=== PATIENT | female | born 1960 | race Caucasian/White ===

== ENCOUNTER 2021-08-12 14:40 | Emergency (ER) | payer MEDICARE, MEDICAID, SELFPAY ==
[2021-08-12 14:41] VITALS: BP 127/70; PULSE 107; RESP 20; TEMP 37.2; O2SAT 94; BMI 25.8
--- NOTE | 2021-08-12 15:08 | CT_ITS ---
PROCEDURE: CT ABDOMEN PELVIS WO CON CLINICAL INDICATION: pain Right flank pain COMPARISON: No exams were available for comparison TECHNIQUE: Axial images obtained with sagittal and coronal reformats. All CT scans at the facility use one or more dose reduction, viz: automated exposure control, ma/kV adjustment per patient size (including targeted exams where dose is matched to indication, i.e. head), or iterative reconstruction technique. FINDINGS: LOWER THORAX: There are atelectatic changes in the lung bases. Coronary artery calcifications are present. ABDOMEN & PELVIS: Heterogeneous density is present in the gallbladder likely representing multiple stones. Consider ultrasound for confirmation. No focal liver lesion is evident. The spleen, adrenal glands, and pancreas have an unremarkable appearance. No renal or ureteral calculi. No hydronephrosis. There is a small umbilical hernia containing fat. No evidence of appendicitis. No evidence of diverticulitis. Nondistended fluid-filled loops of small bowel are present in the lower abdomen and pelvic region. No evidence of intestinal obstruction. There is mild gaseous distention of the large bowel in the transverse colon region. There are mild amount of retained colonic feces in the ascending colon and hepatic flexure. On image number 73 series 5 there is an area of narrowing involving the transverse colon. This may merely represent an area of peristalsis. The mucosa however slightly thickened at this region. There are mild wedge compression changes of T9 and T12 and moderate wedge compression changes of L3. There are no previous exams for comparison to determine the age of these compression changes however they do not have a classic acute appearance. Degenerative changes are present in the hips. Prior gamma nail fixation of left hip with intramedullary arvind. IMPRESSION: 1. No renal or ureteral calculi. 2. Heterogeneous density in the gallbladder likely related to stones and sludge which may be confirmed with ultrasound. 3. Nonspecific bowel gas pattern with minimally prominent fluid-filled loops of small bowel in the lower abdomen and pelvis possibly due to enteritis or mild ileus. 4. Focal area of narrowing involving the mid aspect of the transverse colon possibly due to an area peristalsis. Nonemergent colonoscopy or barium enema suggested to exclude the possibility of an annular lesion. 5. Wedge compression changes of T9, T12, and L3 which may be chronic. 6. Other nonacute findings Dictated by: Philip Toro MD 08/12/2021 16:45 Philip Toro MD in [place] 08/12/2021 16:45
[2021-08-12 16:19] LABS: Basophils # 0.1 K/mm3 (0-0.2); Basophils % 0.6 % (0.1-2.0); Eosinophils % 0.4 % (0.1-12.0); Hematocrit 43.9 % (37.0-47.0); Hemoglobin 13.9 g/dL (12.2-16.2); Lymphocytes # 0.9 K/mm3 (0.7-4.5); Lymphocytes % 10.2 % (10-50); Mean Corpuscular HGB Conc 31.7 g/dL (31.8-35.4); Mean Corpuscular Hemoglobin 29.9 pg (27.0-31.2); Mean Corpuscular Volume 94.4 fl (81-99); Mean Platelet Volume 8.3 fl (7.4-10.4); Monocytes # 0.3 K/mm3 (0.1-1.0); Monocytes % 3.2 % (1.7-9.3); Neutrophils # 7.3 K/mm3 (1.8-7.8); Neutrophils % 85.5 % (37.0-80.0); Platelet Count 368 K/mm3 (142-424); Red Blood Count 4.65 M/mm3 (4.20-5.40); Red Cell Distribution Width 14.7 % (11.5-17.5); White Blood Count 8.5 K/mm3 (4.8-10.8)
[2021-08-12 16:24] LABS: Chloride 96 mmol/L (98-107); Potassium 4.3 mmoL/L (3.5-5.1); Sodium 135 mmol/L (136-145)
[2021-08-12 16:26] LABS: Alanine Aminotransferase 21 U/L (12-78); Aspartate Amino Transferase 26 U/L (14-36); Blood Urea Nitrogen 17 mg/dl (7-17); Creatinine Clearance Estimated 146 mL/min (50-200); Estimated Glomerular Filt Rate 126 ml/min (>60); GFR (African American) 152 ML/MIN (>60)
[2021-08-12 16:27] LABS: Albumin Level 4.2 g/dl (3.5-5.0); Albumin/Globulin Ratio 1.4 (1.1-1.8); Alkaline Phosphatase 163 U/L (38-126); Anion Gap 14.3 mEq/L (5-15); Bilirubin,Total 0.5 mg/dl (0.2-1.3); Calcium 9.2 mg/dl (8.4-10.2); Carbon Dioxide 29 mmol/L (22.0-30.0); Globulin 3.1 g/dL (1.3-3.2); Glucose 352 mg/dl (74-100); Lipase 53 U/L (23-300); Total Protein,Serum 7.3 g/dl (6.3-8.2)
[2021-08-12 16:35] LABS: MANUAL DIFFERENTIAL MANUAL DIFFERENTIAL (MANUAL DIFF)
--- NOTE | 2021-08-12 16:58 | HMH.EDGENADL ---
ED Disposition Clinical Impression: Pyelonephritis Disposition: Home, Self-Care Condition on Discharge: Fair Instructions: DI for Kidney Infection Additional Instructions: Take antibiotics for the full course, even if your symptoms resolve. Take Motrin and acetaminophen for pain. Prescriptions: Cefdinir [Omnicef 300mg Capsule] 300 mg PO BID #20 cap Transmission Status: Received by [facility] Referrals: Provider,Referral, [Primary Care Provider] - - Critical Care Critical Care Time: No Attestation: On 08/12/21, the high probability of a clinically significant, sudden or life threatening deterioration of the following system(s) required my full and direct attention, intervention and personal management. The time I documented below is in addition to time spent performing reported procedures but includes the following listed in this critical care notation. Medical Decision Making - Medical Records Medical records reviewed: Yes: I reviewed the patient's medical records. - Marquise Inquiry Pt receiving controlled substance: No Marquise was queried for this patient: No Vital Signs: 08/12/21 14:41 08/12/21 19:33 Temperature 98.9 F 98.2 F Temperature Source Oral Oral Pulse Rate 84 Pulse Rate [Left Radial] 107 H Respiratory Rate 20 20 Blood Pressure 142/80 H Blood Pressure [Right Arm] 127/70 Blood Pressure Mean [Right Arm] 89 Blood Pressure Source [Right Arm] Automatic Cuff Blood Pressure Position [Right Arm] Sitting 02 Sat by Pulse Oximetry 94 L Oxygen Delivery Method Room Air Room Air - Lab Data Lab Results 08/12/21 15:43: WBC 8.5, RBC 4.65, Hgb 13.9, Hct 43.9, MCV 94.4, MCH 29.9, MCHC 31.7 L, RDW 14.7, Plt Count 368, MPV 8.3, Neut % (Auto) 85.5 H, Lymph % (Auto) 10.2, [place] % (Auto) 3.2, Eos % (Auto) 0.4, Baso % (Auto) 0.6, Neut # (Auto) 7.3, Lymph # (Auto) 0.9, [place] # (Auto) 0.3, Eos # (Auto) 0.0, Baso # (Auto) 0.1, Total Counted 100, Neutrophils % (Manual) 84 H, Band Neutrophils % 1.0, Lymphocytes % (Manual) 12, Monocytes % (Manual) 3, Platelet Estimate Normal, Hypochromasia 2+ 08/12/21 15:43: Sodium 135 L, Potassium 4.3, Chloride 96 L, Carbon Dioxide 29, Anion Gap 14.3, BUN 17, Creatinine 0.50 L, Estimated Creat Clear 146, Estimated GFR 126, Est GFR ( Amer) 152, Glucose 352 H, Calcium 9.2, Total Bilirubin 0.5, AST 26, ALT 21, Alkaline Phosphatase 163 H, Total Protein 7.3, Albumin 4.2, Globulin 3.1, Albumin/Globulin Ratio 1.4, Lipase 53 08/12/21 18:03: Urine Color Yellow, Urine Appearance Cloudy, Urine pH 5.5, Ur Specific [place] 1.025, Urine Protein Negative, Urine Glucose (UA) 3+, Urine Ketones 1+, Urine Blood 1+, Urine Nitrate Positive, Urine Bilirubin Negative, Urine Urobilinogen 0.2, Ur Leukocyte Esterase 1+ A, Urine RBC 5-10, Urine WBC 20-50, Ur Squamous Epith Cells Occasional, Urine Bacteria 4+ Result diagrams: 08/12/21 15:43 08/12/21 15:43 Orders (Tests/Meds): ED MEDICATIONS Generic Name Dose Route Start Last Admin Trade Name Freq PRN Reason Stop Dose Admin Ceftriaxone Sodium 1 gm/ 50 mls @ 100 mls/hr 08/12/21 18:45 08/12/21 18:46 Sodium Chloride IV 08/26/21 18:44 100 mls/hr Q24H EMMANUEL Administration Discontinued Medications Generic Name Dose Route Start Last Admin Trade Name Freq PRN Reason Stop Dose Admin Acetaminophen 650 mg 08/12/21 18:33 08/12/21 18:41 Acetaminophen 325mg/10.15ml Udc PO 08/12/21 18:34 Not Given ONCE ONE Acetaminophen 650 mg 08/12/21 18:42 08/12/21 18:45 Acetaminophen 325mg Tab PO 08/12/21 18:43 650 mg ONCE ONE Administration Ketorolac Tromethamine 30 mg 08/12/21 18:15 08/12/21 18:15 Ketorolac 30mg/Ml Vial IV 08/12/21 18:16 30 mg ONCE ONE Administration Morphine Sulfate 4 mg 08/12/21 16:27 08/12/21 16:54 Morphine 4mg/Ml Syringe IV 08/12/21 16:28 4 mg ONCE ONE Administration Ondansetron HCl 4 mg 08/12/21 16:27 08/12/21 16:54 Ondansetron 4mg/2ml Vial IV 08/12/21 16:28 4 mg ONCE
[2021-08-12 17:09] LABS: Hypochromasia 2+; Lymphocytes % 12 % (10-50); Monocytes % 3 % (2-9); Neutrophils % 84 % (42-76); Total Cells Counted 100
[2021-08-12 17:10] LABS: Platelet Estimate Normal
[2021-08-12 18:09] LABS: Microscopic, Urine URINE MICROSCOPIC (MICROSCOPIC)
[2021-08-12 18:20] LABS: Appearance,Urine CLOUDY (Clear); Bilirubin,Urine Negative (Negative); Blood, Urine 1+ (Negative); Color,Urine YELLOW (Yellow); Glucose,Urine (UA) 3+ (Negative); Ketones,Urine 1+ (Negative); Leukocyte Esterase,Urine 1+ (Negative); Nitrate,Urine POSITIVE (Negative); PH,Urine 5.5 (5.0-8.5); Protein,Urine Negative (Negative); Specific Gravity, Urine 1.025 (1.005-1.030); Urobilinogen,Urine 0.2 EU/dl (0.2)
[2021-08-12 18:32] LABS: Bacteria,Urine 4+ /lpf; Squamous Epithelial Cell,Urine Occasional #/hpf (0-5); WBC,Urine 20-50 #/hpf (0-3)
--- NOTE | 2021-08-12 19:06 | PC.NURSE ---
Called [facility] for pt transport
--- NOTE | 2021-08-12 19:30 | PC.NURSE ---
Called [facility] for pt pick-up.
[2021-08-12 19:33] VITALS: BP 142/80; PULSE 84; RESP 20; TEMP 36.8; O2SAT 98
== END 2021-08-12 20:48 | disposition home or self-care (01) ==
PROVIDERS: Emergency Provider Emergency Medicine
DX: N10 Acute pyelonephritis (principal)
CPT/HCPCS: 74176; 80053; 81001; 83690; 85007; 85025; 87086; 87088; 96365; 96375; 99283; J2405

== ENCOUNTER → 2021-09-14 13:17 | Outpatient (CLI) | payer MEDICARE, MEDICAID, SELFPAY ==
--- NOTE | 2021-09-14 13:21 | XR_ITS ---
PROCEDURE: XR SHOULDER LT MIN 2V CLINICAL INDICATION: left shoulder pain COMPARISON: No exams were available for comparison FINDINGS: There is a healing left humeral neck fracture with callus formation medially and laterally. Fracture line is visible. There is mild impaction and medial displacement of the distal fracture fragment. There is generalized osteopenia. The humeral head is located. There is an old left 2nd and 3rd rib fracture anteriorly and there are atelectatic or fibrotic changes in the left midlung. IMPRESSION: Healing left humeral neck fracture with generalized osteopenia Dictated by: Philip Toro MD 09/14/2021 13:58 Philip Toro MD in [place] 09/14/2021 13:58
== END ==
PROVIDERS: PCP Emergency Medicine; Visit Provider Orthopaedic Surgery
DX: M25.512 Pain in left shoulder (principal)
CPT/HCPCS: 73030

== ENCOUNTER → 2021-11-02 12:28 | Outpatient (CLI) | payer MEDICARE, MEDICAID, SELFPAY ==
--- NOTE | 2021-11-02 12:37 | XR_ITS ---
FINAL REPORT CLINICAL HISTORY: LT proximal humerus fx Followup FINDINGS: LEFT SHOULDER 3 views of the left shoulder were obtained. Again noted is a displaced healing fracture of the surgical neck of the left humerus. There is approximately 1/4 shaft width medial displacement of the distal fracture fragment. There is bridging callus formation at the margins. Soft tissues are unremarkable. IMPRESSION: Healing fracture of the surgical neck of the left humerus. Reviewed, Interpreted and Dictated by Cb Crews MD Transcribed by Celina Mendez Authenticated by Cb Crews MD on 11/02/2021 02:42:[address] [facility]
== END ==
PROVIDERS: PCP Emergency Medicine; Visit Provider Orthopaedic Surgery
DX: S42.202A Unspecified fracture of upper end of left humerus, initial encounter for closed fracture (principal)
CPT/HCPCS: 73030

== ENCOUNTER → 2021-11-08 09:24 | Outpatient (CLI) | payer MEDICARE, MEDICAID, SELFPAY ==
--- NOTE | 2021-11-08 09:30 | XR_ITS ---
FINAL REPORT TECHNIQUE: Bone densitometry calculations of the lumbar spine and left hip were obtained. CLINICAL HISTORY: . patient has had a left hip replacement, unable to do forearm FINDINGS: Using L1-4, the bone mineral density of the spine is 1.004 g/cm2, corresponding to T-score of -0.4. Using the right hip, the bone mineral density of the femoral neck is 0.546 g/cm2, corresponding to a T-score of -3.2. NOTE: T-score: Standard deviation compared with peak bone mass of young adult mean. *Following the recommendations of the International Society of Bone Densitometry, classification of hip BMD is based on the lower of two T-scores; total hip or femoral neck. IMPRESSION: Osteoporosis: Lowest T-score is at or below -2.5. This patient's T-score meets the World Health Organization criteria for osteoporosis. This is likely falsely elevated secondary to hypertrophic changes. Reviewed, Interpreted and Dictated by Bobby Parsons III, MD Transcribed by Celina Mendez Authenticated by Bobby Parsons III, MD on 11/08/2021 12:06:30 PM [facility]
== END ==
PROVIDERS: PCP Emergency Medicine; Visit Provider Orthopaedic Surgery
DX: N95.9 Unspecified menopausal and perimenopausal disorder (principal); Z13.820 Encounter for screening for osteoporosis; Z78.0 Asymptomatic menopausal state
CPT/HCPCS: 77080

== ENCOUNTER → 2021-11-09 23:19 | Outpatient (CLI) | payer MEDICARE, MEDICAID, SELFPAY | PROVIDERS: Visit Provider Emergency Medicine | DX: Z20.822 Contact with and (suspected) exposure to COVID-19 (principal) | CPT/HCPCS: C9803; U0003; U0005 ==

== ENCOUNTER → 2021-11-10 21:23 | Outpatient (CLI) | payer MEDICARE, MEDICAID, SELFPAY | PROVIDERS: PCP Emergency Medicine; Visit Provider Emergency Medicine | DX: Z20.822 Contact with and (suspected) exposure to COVID-19 (principal) | CPT/HCPCS: C9803; U0003; U0005 ==

== ENCOUNTER 2021-12-22 07:20 | Inpatient (IN) | payer MEDICARE, MEDICAID, SELFPAY ==
[2021-12-22] VITALS (17 sets, daily range): BP systolic 101–146; BP diastolic 51–78; PULSE 78–109; RESP 16–20; TEMP 36.5–37.1; O2SAT 88–98; BMI 23.7; BMI 25.0
--- NOTE | 2021-12-22 07:34 | CT_ITS ---
FINAL REPORT CLINICAL HISTORY: FALL FINDINGS: Axial images of the head were obtained without contrast. Coronal reformatted images were also obtained. This study was performed with techniques to keep radiation doses as low as reasonably achievable (ALARA). Individualized dose reduction techniques using automated exposure control or adjustment of mA and/or kV according to the patient's size were employed. There is generalized age appropriate atrophy. There is no evidence of intracranial hemorrhage or mass. There is a large area of encephalomalacia in the right hemisphere which is likely a sequela of prior infarct. The ventricular size is within normal limits. There is no evidence of shift of the midline structures. No skull abnormality is seen on the bone window images. IMPRESSION: No acute intracranial abnormality. Reviewed, Interpreted and Dictated by Bobby Parsons III, MD Transcribed by Kayla Kemp Authenticated by Bobby Parsons III, MD on 12/22/2021 09:17:22 AM [facility]
--- NOTE | 2021-12-22 07:34 | CT_ITS ---
FINAL REPORT CLINICAL HISTORY: FALL FINDINGS: Axial CT images of the cervical spine were obtained without contrast. Sagittal and coronal reformatted images were also obtained. This study was performed with techniques to keep radiation doses as low as reasonably achievable (ALARA). Individualized dose reduction techniques using automated exposure control or adjustment of mA and/or kV according to the patient's size were employed. There is no evidence of fracture or dislocation. The bony alignment is normal. There are mild and moderate degenerative changes. There is disc osteophyte complex at C5-C6 and C6-C7. There is multilevel neural foraminal narrowing. There is no evidence of canal stenosis. No paraspinous soft tissue abnormality is seen. Limited images of the upper thorax are unremarkable. IMPRESSION: No fracture or acute bony abnormality identified. Reviewed, Interpreted and Dictated by Bobby Parsons III, MD Transcribed by Celina Mendez Authenticated by Bobby Parsons III, MD on 12/22/2021 09:22:26 AM [facility]
--- NOTE | 2021-12-22 07:35 | XR_ITS ---
FINAL REPORT CLINICAL HISTORY: FALL COMPARISON: CT dated August 12, 2021 FINDINGS: 2 views of the right hip with an AP pelvis were obtained. There is a comminuted intertrochanteric proximal right femur fracture. 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 There are mild degenerative changes of the right hip. There are postoperative changes of the left femur. There are no soft tissue abnormalities. IMPRESSION: Comminuted intertrochanteric proximal right femur fracture. Reviewed, Interpreted and Dictated by Bobby Parsons III, MD Transcribed by Clint Cordero Authenticated by Bobby Parsons III, MD on 12/22/2021 09:17:[address] [facility]
--- NOTE | 2021-12-22 07:36 | XR_ITS ---
FINAL REPORT CLINICAL HISTORY: FALL, right hand pain, pts hand is drawn up, unable to straighten fingers FINDINGS: RIGHT HAND: Multiple views of the right hand were obtained. There is a nondisplaced fracture of the proximal 5th metacarpal of uncertain age. There is moderate to severe degenerative changes of the wrist. There are subchondral cysts in the distal radius. There are multiple cysts or erosions in other carpal bones. IMPRESSION: Age-indeterminate nondisplaced fracture of the proximal 5th metacarpal. Recommend follow-up radiographs. Reviewed, Interpreted and Dictated by Bobby Parsons III, MD Transcribed by Clint Cordero Authenticated by Bobby Parsons III, MD on 12/22/2021 09:22:27 AM [facility]
--- NOTE | 2021-12-22 08:21 | XR_ITS ---
FINAL REPORT CLINICAL HISTORY: FALL FINDINGS: A single view of the chest was obtained. The heart size and pulmonary vascularity are within normal limits. The mediastinum is within normal limits. There is mild linear atelectasis or scarring in the lung bases. There is a calcified granuloma in the right lung base. There is no pneumothorax. There is degenerative change in the shoulders. IMPRESSION: Bibasilar atelectasis or scarring. Reviewed, Interpreted and Dictated by Bobby Parsons III, MD Transcribed by Clint Codrero Authenticated by Bobby Parsons III, MD on 12/22/2021 09:17:25 AM [facility]
--- NOTE | 2021-12-22 08:28 | PC.NURSE ---
rad called while pt still in xray room r/t pts xrays appearing to have fracture, notified dr. camilo SOLIS MD view xrays
--- NOTE | 2021-12-22 09:02 | ECG_ITS ---
APPROVED REPORT Exam: Resting ECG HR:83 bpm ECG Measurements Heart Rate 83 AXES OH 178 P 61 QRSd 75 QRS 60 QT 369 T 30 QTc 409 Conclusion SINUS RHYTHM NORMAL ECG UNCONFIRMED REPORT Electronically signed by : Keny Hartman MD 12/22/2021 18:02:31
--- NOTE | 2021-12-22 09:17 | HMH.EDGENADL ---
ED Disposition Clinical Impression: Closed right hip fracture Qualifiers: Encounter type: initial encounter Qualified Code(s): S72.001A - Fracture of unspecified part of neck of right femur, initial encounter for closed fracture Fracture, metacarpal Qualifiers: Encounter type: initial encounter Metacarpal bone: fifth Fracture type: closed Metacarpal location: base Fracture alignment: nondisplaced Laterality: right Qualified Code(s): S62.346A - Nondisplaced fracture of base of fifth metacarpal bone, right hand, initial encounter for closed fracture Disposition: Admitted As Inpatient Condition on Discharge: Fair Referrals: Adonis Kelley MD [Primary Care Provider] - - Critical Care Critical Care Time: No Attestation: On 12/22/21, the high probability of a clinically significant, sudden or life threatening deterioration of the following system(s) required my full and direct attention, intervention and personal management. The time I documented below is in addition to time spent performing reported procedures but includes the following listed in this critical care notation. Medical Decision Making - Marquise Inquiry Pt receiving controlled substance: Yes Marquise was queried for this patient: No Risks and benefits of using a controlled substance: were not discussed with pt by me Vital Signs: 12/22/21 07:21 12/22/21 09:00 12/22/21 09:30 Temperature 98.8 F Temperature Source Oral Pulse Rate 88 82 Pulse Rate [Radial] 100 H Respiratory Rate 20 18 18 Blood Pressure 129/77 109/60 L Blood Pressure [Right Arm] 105/74 L Blood Pressure Mean 108 76 Blood Pressure Mean [Right Arm] 84 Blood Pressure Position [Right Arm] Sitting 02 Sat by Pulse Oximetry 98 98 95 Oxygen Delivery Method Room Air Room Air Room Air - Lab Data Lab Results 12/22/21 09:08: WBC 15.1 H, RBC 4.04 L, Hgb 12.0 L, Hct 38.9, MCV 96.2, MCH 29.7, MCHC 30.9 L, RDW 14.4, Plt Count 299, MPV 8.2, Neut % (Auto) 86.1 H, Lymph % (Auto) 8.4 L, [place] % (Auto) 3.4, Eos % (Auto) 1.4, Baso % (Auto) 0.6, Neut # (Auto) 13.0 H, Lymph # (Auto) 1.3, [place] # (Auto) 0.5, Eos # (Auto) 0.2, Baso # (Auto) 0.1 12/22/21 09:08: Sodium 136, Potassium 4.3, Chloride 105, Carbon Dioxide 27, Anion Gap 8.3, BUN 30 H, Creatinine 0.60, Estimated Creat Clear 66, Estimated GFR 102, Est GFR ( Amer) 123, Glucose 114 H, Calcium 8.8, Total Bilirubin 0.5, AST 24, ALT 23, Alkaline Phosphatase 71, Total Protein 6.7, Albumin 3.9, Globulin 2.8, Albumin/Globulin Ratio 1.4 Result diagrams: 12/22/21 09:08 12/22/21 09:08 Orders (Tests/Meds): ED MEDICATIONS Discontinued Medications Generic Name Dose Route Start Last Admin Trade Name Deepakq PRN Reason Stop Dose Admin Morphine Sulfate 4 mg 12/22/21 09:16 12/22/21 09:17 Morphine 4mg/Ml Syringe IV 12/22/21 09:17 4 mg ONCE ONE Administration Ondansetron HCl 4 mg 12/22/21 09:17 12/22/21 09:17 Ondansetron 4mg/2ml Vial IV 12/22/21 09:18 4 mg ONCE ONE Administration ORDERS Category Date Time Status Type and Screen Stat BBK 12/22/21 09:00 Received Consult to Orthopedic Surgery [CONS] Stat Cons 12/22/21 09:31 Ordered Complete Blood Count Auto Diff Stat Lab 12/22/21 09:08 Results Rapid PCR Covid and Flu A/B Stat Lab 12/22/21 09:37 Received Urinalysis and Microscopic Stat Lab 12/22/21 08:28 Ordered - Radiology Data #1 Image(s): Chest, Hand, Hip Image Reviewed: Yes I reviewed the patient's radiology image, Yes I have reviewed radiologist's interpretation Procedure(s): XR hip RT 2-3V w/pelvis Accession Number(s): [id number] cc: Adonis Kelley MD; Bobby Parsons MD~ FINAL REPORT CLINICAL HISTORY: FALL COMPARISON: CT dated August 12, 2021 FINDINGS: 2 views of the right hip with an AP pelvis were obtained. There is a comminuted intertrochanteric proximal right femur fracture. 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 There are mild degenerative changes of the right hip. The
--- NOTE | 2021-12-22 09:22 | PC.NURSE ---
ED MD at
[2021-12-22 09:24] LABS: Basophils # 0.1 K/mm3 (0-0.2); Basophils % 0.6 % (0.1-2.0); Eosinophils # 0.2 K/mm3 (0.0-0.4); Eosinophils % 1.4 % (0.1-12.0); Hematocrit 38.9 % (37.0-47.0); Lymphocytes # 1.3 K/mm3 (0.7-4.5); Lymphocytes % 8.4 % (10-50); Mean Corpuscular HGB Conc 30.9 g/dL (31.8-35.4); Mean Corpuscular Hemoglobin 29.7 pg (27.0-31.2); Mean Corpuscular Volume 96.2 fl (81-99); Mean Platelet Volume 8.2 fl (7.4-10.4); Monocytes # 0.5 K/mm3 (0.1-1.0); Monocytes % 3.4 % (1.7-9.3); Neutrophils % 86.1 % (37.0-80.0); Platelet Count 299 K/mm3 (142-424); Red Blood Count 4.04 M/mm3 (4.20-5.40); Red Cell Distribution Width 14.4 % (11.5-17.5); White Blood Count 15.1 K/mm3 (4.8-10.8)
[2021-12-22 09:25] LABS: MANUAL DIFFERENTIAL MANUAL DIFFERENTIAL (MANUAL DIFF)
[2021-12-22 09:29] LABS: Alanine Aminotransferase 23 U/L (12-78); Albumin Level 3.9 g/dl (3.5-5.0); Albumin/Globulin Ratio 1.4 (1.1-1.8); Alkaline Phosphatase 71 U/L (38-126); Anion Gap 8.3 mEq/L (5-15); Aspartate Amino Transferase 24 U/L (14-36); Bilirubin,Total 0.5 mg/dl (0.2-1.3); Blood Urea Nitrogen 30 mg/dl (7-17); Calcium 8.8 mg/dl (8.4-10.2); Carbon Dioxide 27 mmol/L (22.0-30.0); Chloride 105 mmol/L (98-107); Creatinine Clearance Estimated 66 mL/min (50-200); Estimated Glomerular Filt Rate 102 ml/min (>60); GFR (African American) 123 ML/MIN (>60); Globulin 2.8 g/dL (1.3-3.2); Glucose 114 mg/dl (74-100); Potassium 4.3 mmoL/L (3.5-5.1); Sodium 136 mmol/L (136-145); Total Protein,Serum 6.7 g/dl (6.3-8.2)
--- NOTE | 2021-12-22 09:33 | PC.NURSE ---
dr kent paged
--- NOTE | 2021-12-22 09:38 | PC.NURSE ---
KATHY LIVE on phone with Dr. Smith
[2021-12-22 09:56] LABS: Influenza A, PCR Not Detected (NotDetected); Influenza B, PCR Not Detected (NotDetected)
[2021-12-22 10:00] LABS: Lymphocytes % 10 % (10-50); Monocytes % 2 % (2-9); Neutrophils % 88 % (42-76); Total Cells Counted 100
[2021-12-22 10:02] LABS: Macrocytosis 1+; Platelet Estimate Normal
--- NOTE | 2021-12-22 10:27 | HMH.HP ---
*Admission Date: 12/22/21 *Chief complaint: hip pain *History of present illness: 61-year-old white female who presented to the emergency department after a fall at home. The patient states that she was coming out of her bathroom and caught the toes of her left foot on the door and she jumped back and fell. The patient injured her right hip and her right hand during this fall. The patient reports having a prior fracture of the right hand as well as significant arthritis with deformity. The patient called EMS due to the pain in her right hip after the fall. She presented to the emergency department and does have a fracture of the right hip. She is scheduled to undergo surgical intervention tomorrow on her hip. She currently denies any chest pain or pressure. She denies any shortness of breath or edema. She denies any fevers, chills, nausea, vomiting, diarrhea, PND or orthopnea. She denies any history of coronary disease or NH. She does report a history of a stroke. She is a current tobacco user and smokes 3 to 4 packs/day.-per cardiology [facility] History I have reviewed the patient's past medical history: Yes Medical History: Reports:: Diabetes Mellitus Type 2 *Have you ever received a pneumonia vaccine?: No *Have you received a flu vaccine this season?: No Other Surgeries: Yes: Other - *Social History Smoking Status: Current every day smoker Alcohol Intake: never *Occupational Status:: disabled Housing: assisted living facility *Travel in the last 8 weeks: None Family Hx:: No significant family history Review of Systems - Review of Systems Review of systems:: pertinent systems reviewed and negative unless documented below - Constitutional Denies body ache(s) - Eyes Denies blurry vision - ENT Denies change in voice - *Cardiovascular Denies chest pain with activity - *Respiratory Denies chest congestion - *Gastrointestinal Denies bloating - *Genitourinary Denies urinary urgency - *Musculoskeletal Denies decreased muscle mass - Integumentary/Breasts Denies change in hair - *Neurologic Denies headache(s), Denies numbness, Denies weakness - Psychiatric Denies hearing things others do not hear - Endocrine Denies heat intolerance - Hematologic/Lymphatic Denies enlarged lymph nodes - Allergic/Immunologic Denies lip swelling Meds Home Medications Medication Instructions Recorded Confirmed Type acetaminophen 500 mg capsule 500 mg PO Q4HP PRN 09/14/21 12/22/21 History metformin 500 mg tablet 500 mg PO BIDWMEAL tab 09/14/21 12/22/21 History Cyclobenzaprine HCl 10 mg PO TIDP PRN 12/22/21 12/22/21 History [Cyclobenzaprine 10mg Tab*] Duloxetine HCl 40 mg PO DAILY 12/22/21 12/22/21 History Hydrocodone/Acetaminophen [Lortab 1 tab PO BID 12/22/21 12/22/21 History 10/325mg tablet] Insulin Glargine,Hum.rec.anlog 14 unit SQ HS 12/22/21 12/22/21 History [Lantus] Lactulose 30 ml PO DAILYP PRN 12/22/21 12/22/21 History Loperamide HCl [Loperamide] 2 mg PO Q6HP PRN 12/22/21 12/22/21 History Ondansetron [Zofran 4mg ODT] 4 mg PO TIDP PRN 12/22/21 12/22/21 History Promethazine HCl [Phenergan 25mg 25 mg PO Q8HP PRN 12/22/21 12/22/21 History tab] polyethylene glycoL 3350 [Miralax 17 gm PO DAILYP PRN 12/22/21 12/22/21 History 17gm Packet] predniSONE [Deltasone 10mg 10 mg PO DAILY 12/22/21 12/22/21 History tablet] Allergies Allergy/AdvReac Type Severity Reaction Status Date / Time codeine Allergy Unknown Verified 11/02/21 13:05 Sulfa (Sulfonamide Allergy Unknown Verified 11/02/21 13:05 Antibiotics) Exam Vital signs and Labs for Last 24 Hours: Temp Pulse Resp BP Pulse Ox 98.8 F 82 18 109/60 L 95 12/22/21 07:21 12/22/21 09:30 12/22/21 09:30 12/22/21 09:30 12/22/21 09:30 Laboratory Results - last 24 hr 12/22/21 09:00: Blood Type A Positive 12/22/21 09:08: WBC 15.1 H, RBC 4.04 L, Hgb 12.0 L, Hct 38.9, MCV 96.2, MCH 29.7, MCHC 30.9
[2021-12-22 10:42] LABS: Coronavirus 19, PCR Detected (NotDetected)
--- NOTE | 2021-12-22 11:14 | PC.NURSE ---
PT STATES SHE WAS + FOR COVID ABOUT A MONTH AGO
--- NOTE | 2021-12-22 11:54 | PC.NURSE ---
charge nurse from second floor called with room assignment for pt, states room is clean and ready
--- NOTE | 2021-12-22 12:11 | CA_ITS ---
APPROVED REPORT EXAM: Comprehensive 2D, Doppler, and color-flow Echocardiogram Washcoat Wiper: Darling Mora CRT Ht: 5 ft 8 in Wt: 156lbs BSA: 1.84 BP: 109/60 mmHg Indications: Diabetes, Hypertension/HDD, pre-op, R hip fx 2D Dimensions LVOT 1.97 cm (M/F) 1.5-2.5 LA Volume 24.70 mL LA Volume Index 13.40 mL/m2 (M/F) 16-34 M-Mode Dimensions RVDd 3.08 cm (0.9-2.6) LA Diam 3.25 cm (1.9-4.0) LVDd 4.72 cm (3.5-5.7) Ao Diam 4.05 cm (2.0-3.7) LVDs 2.07 cm (3.5-5.7) IVSd 0.86 cm (0.6-1.1) PWd 0.79 cm (0.6-1.1) EF (Teich) 86.60% FS 56.10% EDV (Teich) 103.40 mL TAPSE 1.94 (<1.7) ESV (Teich) 13.90 mL LV Diastology E Decel Time 210.00 (160-240 msec) E/A Ratio 0.93 LAT E' 6.10 (<10 cm/sec) LAT A' 9.10 cm/s E/LAT E' Ratio 9.41 (>14) Aortic Valve AO Peak GR. 6.90 mmHg Mitral Valve MV E Max Beni. 57.00 (40-130 cm/s) MV A Velocity 62.00 (40-130 cm/s) E/A Ratio 0.93 MV Decel. Time 210.00 (160-240 ms) MV PHT 62.00 ms Pulmonary Valve PV Peak Velocity 94.00 (50-150 cm/s) Tricuspid Valve TR P. Velocity 193.00 cm/s RAP Estimate 10.00 mmHg RVSP 25.00 mmHg Left Ventricle Left atrium is mildly enlarged, left ventricle is normal size, mild concentric left ventricular hypertrophy, visually estimated ejection fraction 55% with no regional wall motion abnormality, grade 1 diastolic dysfunction seen without tissue Doppler evidence of raise left atrial pressure. Right Ventricle Right atrium and right ventricle are normal size and contractility. Aortic Valve Aortic valve is minimally thickened and fibrosed, there is no aortic stenosis or aortic insufficiency. Mitral Valve Mitral valve grossly normal, there is trace mitral regurgitation. Tricuspid Valve Tricuspid grossly normal, there is trace tricuspid regurgitation, tricuspid regurgitation jet velocity is inadequate for calculation of the right ventricular systolic pressure. Pulmonic Valve Pulmonic valve is poorly visualized. Great Vessels Aortic root is normal size. Inferior vena cava is poorly visualized. Pericardium No significant pericardial effusion. Conclusion 1. Mildly enlarged left atrium, normal left ventricular size, mild concentric left ventricular hypertrophy, visually estimated ejection fraction 55% with no regional wall motion abnormality, grade 1 diastolic dysfunction seen without tissue Doppler evidence of raise left atrial pressure. 2. Trace mitral and tricuspid regurgitation. 3. No significant pericardial effusion. 4. Inferior vena cava is poorly visualized. Electronically signed by : Tip Valiente MD 12/22/2021 19:53:08
--- NOTE | 2021-12-22 12:24 | HMH.PHAVTE ---
[facility] Pharmacy VTE Monitoring - Patient Demographics Admission date: 12/22/21 Report Date: 12/22/21 Time: 12:24 Allergies/Adverse Reactions: Patient Allergies codeine Allergy (Unknown, Verified 11/02/21 13:05) Sulfa (Sulfonamide Antibiotics) Allergy (Unknown, Verified 11/02/21 13:05) Height: 1.73 m Weight: 70.76 kg Patient Problems: Current Active Problems Closed right hip fracture (Acute) Fracture, metacarpal (Acute) - VTE Risk Labs: VTE Related Lab Results Hgb 12.0 g/dL (12.2-16.2) L 12/22/21 09:08 Hct 38.9 % (37.0-47.0) 12/22/21 09:08 Plt Count 299 K/mm3 (142-424) 12/22/21 09:08 BUN 30 mg/dl (7-17) H 12/22/21 09:08 Creatinine 0.60 mg/dl (0.52-1.04) 12/22/21 09:08 Estimated Creat Clear 66 mL/min (50-200) 12/22/21 09:08 - Prophylaxis VTE Prophylaxis Ordered?: Yes Types of VTE Prophylaxis: TEDS Knee High Location of Applied Device: Bilateral Lower Extremeties
--- NOTE | 2021-12-22 12:29 | PC.NURSE ---
ATTEMPTED TO CALL REPORT NURSE WILL HAVE TO CALL BACK
--- NOTE | 2021-12-22 12:39 | HMH.CNCARD ---
History of Present Illness Consult date: 12/22/21 Requesting physician: Adonis Kelley Consult reason: pre-op evaluation Chief complaint: right hip pain History of present illness: This is a 61-year-old white female who presented to the emergency department after a fall at home. The patient states that she was coming out of her bathroom and caught the toes of her left foot on the door and she jumped back and fell. The patient injured her right hip and her right hand during this fall. The patient reports having a prior fracture of the right hand as well as significant arthritis with deformity. The patient called EMS due to the pain in her right hip after the fall. She presented to the emergency department and does have a fracture of the right hip. She is scheduled to undergo surgical intervention tomorrow on her hip. She currently denies any chest pain or pressure. She denies any shortness of breath or edema. She denies any fevers, chills, nausea, vomiting, diarrhea, PND or orthopnea. She denies any history of coronary disease or OK. She does report a history of a stroke. She is a current tobacco user and smokes 3 to 4 packs/day. [facility] History I have reviewed the patient's past medical history: Yes Medical History: Reports:: Diabetes Mellitus Type 2, Hyperlipidemia Denies:: Coronary Artery Disease, Hypertension *Have you ever received a pneumonia vaccine?: No *Have you received a flu vaccine this season?: No Other Surgeries: Yes: Other - *Social History Smoking Status: Current every day smoker Alcohol Intake: never *Occupational Status:: disabled Housing: assisted living facility *Travel in the last 8 weeks: None Family Hx:: No significant family history Meds Home Medications Medication Instructions Recorded Confirmed Type acetaminophen 500 mg capsule 500 mg PO Q4HP PRN 09/14/21 12/22/21 History metformin 500 mg tablet 500 mg PO BIDWMEAL tab 09/14/21 12/22/21 History Cyclobenzaprine HCl 10 mg PO TIDP PRN 12/22/21 12/22/21 History [Cyclobenzaprine 10mg Tab*] Duloxetine HCl 40 mg PO DAILY 12/22/21 12/22/21 History Hydrocodone/Acetaminophen [Lortab 1 tab PO BID 12/22/21 12/22/21 History 10/325mg tablet] Insulin Glargine,Hum.rec.anlog 14 unit SQ HS 12/22/21 12/22/21 History [Lantus] Lactulose 30 ml PO DAILYP PRN 12/22/21 12/22/21 History Loperamide HCl [Loperamide] 2 mg PO Q6HP PRN 12/22/21 12/22/21 History Ondansetron [Zofran 4mg ODT] 4 mg PO TIDP PRN 12/22/21 12/22/21 History Promethazine HCl [Phenergan 25mg 25 mg PO Q8HP PRN 12/22/21 12/22/21 History tab] polyethylene glycoL 3350 [Miralax 17 gm PO DAILYP PRN 12/22/21 12/22/21 History 17gm Packet] predniSONE [Deltasone 10mg 10 mg PO DAILY 12/22/21 12/22/21 History tablet] Allergies Allergy/AdvReac Type Severity Reaction Status Date / Time codeine Allergy Unknown Verified 11/02/21 13:05 Sulfa (Sulfonamide Allergy Unknown Verified 11/02/21 13:05 Antibiotics) Exam Vital signs and Labs for Last 24 Hours: Temp Pulse Resp BP Pulse Ox 98.8 F 93 H 20 115/66 98 12/22/21 07:21 12/22/21 12:00 12/22/21 12:00 12/22/21 12:00 12/22/21 12:00 Laboratory Results - last 24 hr 12/22/21 09:00: Blood Type A Positive 12/22/21 09:08: WBC 15.1 H, RBC 4.04 L, Hgb 12.0 L, Hct 38.9, MCV 96.2, MCH 29.7, MCHC 30.9 L, RDW 14.4, Plt Count 299, MPV 8.2, Neut % (Auto) 86.1 H, Lymph % (Auto) 8.4 L, [place] % (Auto) 3.4, Eos % (Auto) 1.4, Baso % (Auto) 0.6, Neut # (Auto) 13.0 H, Lymph # (Auto) 1.3, [place] # (Auto) 0.5, Eos # (Auto) 0.2, Baso # (Auto) 0.1, Total Counted 100, Neutrophils % (Manual) 88 H, Lymphocytes % (Manual) 10, Monocytes % (Manual) 2, Platelet Estimate Normal, Macrocytosis 1+ 12/22/21 09:08: Sodium 136, Potassium 4.3, Chloride 105, Carbon Dioxide 27, Anion Gap 8.3, BUN 30 H, Creatinine 0.60, Estimated Creat Clear 66, Estimated GFR 102, Est GFR ( Amer) 123, Glucose 114 H, Calcium 8.8, Total Bilirubin 0.5, AST 24,
--- NOTE | 2021-12-22 12:43 | PC.NURSE ---
REPORT CALLED TO FLOOR
--- NOTE | 2021-12-22 12:57 | PC.NURSE ---
Techs from 2nd floor down to get patient; taking her up by stretcher.
--- NOTE | 2021-12-22 13:49 | HMH.PHAINT ---
MEDICATION RECONCILIATION COMPLETED ON PATIENT USING MAR FROM [facility]. -LUZ MONTOYA, DWIGHTD
--- NOTE | 2021-12-22 14:19 | PC.NURSE ---
Called [facility]. Spoke to Clotilde requesting information about medication lists as well as ilanaid 19 testing paperwork.
[2021-12-22 17:02] LABS: POC Glucose,Bedside 118 (70-110)
[2021-12-22 19:07] LABS: Microscopic, Urine URINE MICROSCOPIC (MICROSCOPIC)
[2021-12-22 20:13] LABS: Appearance,Urine CLOUDY (Clear); Bilirubin,Urine Negative (Negative); Blood, Urine TRACE-I (Negative); Color,Urine YELLOW (Yellow); Glucose,Urine (UA) Negative (Negative); Ketones,Urine Negative (Negative); Leukocyte Esterase,Urine 1+ (Negative); Nitrate,Urine POSITIVE (Negative); Protein,Urine Negative (Negative); Specific Gravity, Urine >= 1.030 (1.005-1.030); Urobilinogen,Urine 0.2 EU/dl (0.2)
--- NOTE | 2021-12-22 20:50 | HMH.ORTHOCON ---
*Admission Date: 12/22/21 *Reason for consult:: Intertrochanteric fracture femur, right hip *History of present illness: Patient is a 61-year-old white female who is admitted to hospital from the emergency department for management of right intertrochanteric femur fracture. She is a resident of [facility]. The patient states that she fell after tripping on the door, coming out of the bathroom, at the [facility]. She says she injured her right hip, right knee and right hand during this fall. The patient reports having a prior fracture of the right hand as well as significant arthritis with deformity. She had immediate pain in her right hip, right knee and could not weight-bear or walk. She was brought to the ER by the EMS for evaluation confirmed the right femur intertrochanteric fracture. At present she does not report much pain in her right hand. She is only reporting of pain in her right hip and right knee. Patient denies any dizziness, headache, chest or neck pain. She says her pain is well controlled at rest but trying to move the right lower extremity causes hip and knee pain. She denies loss of consciousness, chest pain and shortness of breath. She had a similar injury to her left hip in 2012 and underwent a cephalo-medullary nailing b at [facility]. Her medical history includes CVA, hyperlipidemia and type 2 diabetes. She is a current tobacco user and smokes 3 to 4 packs/day. [facility] History I have reviewed the patient's past medical history: Yes Medical History: Reports:: Diabetes Mellitus Type 2, Hyperlipidemia Denies:: Coronary Artery Disease, Hypertension *Have you ever received a pneumonia vaccine?: No *Have you received a flu vaccine this season?: No Other Surgeries: Yes: Other - *Social History Smoking Status: Current every day smoker Tobacco Type: cigarettes # Packs/Day (cigarettes): 1 Alcohol Intake: never *Occupational Status:: disabled Housing: assisted living facility *Travel in the last 8 weeks: None Family Hx:: No significant family history Review of Systems - Review of Systems Review of systems:: pertinent systems reviewed and negative unless documented below - Constitutional Denies chills, Denies fever(s), Denies malaise - Eyes Denies change in vision - ENT Denies abnormal hearing, Denies bleeding gums, Denies difficulty swallowing - *Cardiovascular Denies chest pain, Denies shortness of breath - *Respiratory Denies chest congestion, Denies cough - *Gastrointestinal Denies abdominal pain, Denies change in bowel habits - *Musculoskeletal Reports abnormal walking, Reports joint pain, Reports deformity, Reports limited joint movement - *Neurologic Reports abnormal walking, Denies headache(s), Denies numbness, Denies weakness - Endocrine Denies cold intolerance, Denies heat intolerance - Hematologic/Lymphatic Denies easy bleeding, Denies easy bruising Meds Home Medications Medication Instructions Recorded Confirmed Type acetaminophen 500 mg capsule 500 mg PO Q4HP PRN 09/14/21 12/22/21 History metformin 500 mg tablet 500 mg PO BIDWMEAL tab 09/14/21 12/22/21 History Cyclobenzaprine HCl 10 mg PO TIDP PRN 12/22/21 12/22/21 History [Cyclobenzaprine 10mg Tab*] Duloxetine HCl 40 mg PO DAILY 12/22/21 12/22/21 History Hydrocodone/Acetaminophen [Lortab 1 tab PO BID 12/22/21 12/22/21 History 10/325mg tablet] Insulin Glargine,Hum.rec.anlog 14 unit SQ HS 12/22/21 12/22/21 History [Lantus] Lactulose 30 ml PO DAILYP PRN 12/22/21 12/22/21 History Loperamide HCl [Loperamide] 2 mg PO Q6HP PRN 12/22/21 12/22/21 History Ondansetron [Zofran 4mg ODT] 4 mg PO TIDP PRN 12/22/21 12/22/21 History Promethazine HCl [Phenergan 25mg 25 mg PO Q8HP PRN 12/22/21 12/22/21 History tab] polyethylene glycoL 3350 [Miralax 17 gm PO DAILYP PRN 12/22/21 12/22/21 History 17gm Packet] predniSONE [Deltasone 10mg 10 mg PO DAILY 12/22/21 12/22/21 History tablet]
[2021-12-22 21:12] LABS: Bacteria,Urine 3+ /lpf
--- NOTE | 2021-12-22 21:18 | XR_ITS ---
PROCEDURE INFORMATION: Exam: XR Right Knee Exam date and time: 12/22/2021 9:18 PM Age: 61 years old Clinical indication: Injury or trauma; Fall; Blunt trauma; Knee; Right; Additional info: Right knee pain after fall/injury TECHNIQUE: Imaging protocol: XR Right knee. Views: 3 views. COMPARISON: No relevant prior studies available. FINDINGS: Bones/joints: Severe tricompartmental degenerative changes, symmetric. Soft tissues: Normal. IMPRESSION: Severe tricompartmental degenerative changes, symmetric.
[2021-12-23] VITALS (21 sets, daily range): BP systolic 106–155; BP diastolic 56–79; PULSE 85–120; RESP 12–19; TEMP 36.3–37.2; O2SAT 91–96; BMI 24.9
[2021-12-23 06:08] LABS: POC Glucose,Bedside 178 (70-110)
[2021-12-23 07:05] LABS: Basophils # 0.1 K/mm3 (0-0.2); Basophils % 0.6 % (0.1-2.0); Eosinophils # 0.1 K/mm3 (0.0-0.4); Eosinophils % 0.6 % (0.1-12.0); Hematocrit 37.6 % (37.0-47.0); Hemoglobin 11.7 g/dL (12.2-16.2); Lymphocytes # 0.8 K/mm3 (0.7-4.5); Lymphocytes % 6.1 % (10-50); Mean Corpuscular HGB Conc 31.1 g/dL (31.8-35.4); Mean Corpuscular Hemoglobin 29.8 pg (27.0-31.2); Mean Corpuscular Volume 95.8 fl (81-99); Mean Platelet Volume 8.1 fl (7.4-10.4); Monocytes # 0.5 K/mm3 (0.1-1.0); Neutrophils # 11.2 K/mm3 (1.8-7.8); Neutrophils % 88.8 % (37.0-80.0); Platelet Count 241 K/mm3 (142-424); Red Blood Count 3.92 M/mm3 (4.20-5.40); Red Cell Distribution Width 14.5 % (11.5-17.5); White Blood Count 12.6 K/mm3 (4.8-10.8)
[2021-12-23 07:09] LABS: MANUAL DIFFERENTIAL MANUAL DIFFERENTIAL (MANUAL DIFF)
[2021-12-23 07:10] LABS: Alanine Aminotransferase 23 U/L (12-78); Albumin Level 3.8 g/dl (3.5-5.0); Albumin/Globulin Ratio 1.4 (1.1-1.8); Alkaline Phosphatase 79 U/L (38-126); Anion Gap 9.4 mEq/L (5-15); Aspartate Amino Transferase 33 U/L (14-36); Bilirubin,Total 1.3 mg/dl (0.2-1.3); Blood Urea Nitrogen 25 mg/dl (7-17); Calcium 8.4 mg/dl (8.4-10.2); Carbon Dioxide 27 mmol/L (22.0-30.0); Chloride 101 mmol/L (98-107); Creatinine Clearance Estimated 70 mL/min (50-200); Estimated Glomerular Filt Rate 102 ml/min (>60); GFR (African American) 123 ML/MIN (>60); Globulin 2.8 g/dL (1.3-3.2); Glucose 192 mg/dl (74-100); Potassium 4.4 mmoL/L (3.5-5.1); Sodium 133 mmol/L (136-145); Total Protein,Serum 6.6 g/dl (6.3-8.2)
--- NOTE | 2021-12-23 07:59 | SW/DCPLANNER ---
Addendum entered by Soo Thomas 12/28/21 09:22: I have informed Essie with [facility] this patient will return today: no further COVID testing is needed per Essie. Addendum entered by Soo Thomas 12/27/21 10:39: Updated patient information has been faxed to Essie nieves/ [facility]. Original Note: This patient currently resides at [facility]. I spoke with Essie from [place] patient is [facility] level of care: I will continue to follow up with Essie until patient is medically stable for discharge.
[2021-12-23 08:30] LABS: Eosinophils % 1 % (0-3); Lymphocytes % 5 % (10-50); Monocytes % 1 % (2-9); Neutrophils % 93 % (42-76); Total Cells Counted 100
[2021-12-23 08:32] LABS: Platelet Estimate Normal
--- NOTE | 2021-12-23 09:34 | HMH.ACPN2 ---
Internal Medicine - PN: Subj *Date: 12/23/21 *Time: 08:30 Interval history: pt laying in bed states no c/o Exam Vital signs and Labs for Last 24 Hours: Temp Pulse Resp BP Pulse Ox 98.9 F 120 H 19 146/71 H 94 L 12/23/21 08:00 12/23/21 08:00 12/23/21 08:00 12/23/21 08:00 12/23/21 08:00 Laboratory Results - last 24 hr 12/22/21 09:00: Blood Type A Positive, Antibody Screen Negative 12/22/21 09:08: Total Counted 100, Neutrophils % (Manual) 88 H, Lymphocytes % (Manual) 10, Monocytes % (Manual) 2, Platelet Estimate Normal, Macrocytosis 1+ 12/22/21 09:08: Sodium 136, Potassium 4.3, Chloride 105, Carbon Dioxide 27, Anion Gap 8.3, BUN 30 H, Creatinine 0.60, Estimated Creat Clear 66, Estimated GFR 102, Est GFR ( Amer) 123, Glucose 114 H, Calcium 8.8, Total Bilirubin 0.5, AST 24, ALT 23, Alkaline Phosphatase 71, Total Protein 6.7, Albumin 3.9, Globulin 2.8, Albumin/Globulin Ratio 1.4 12/22/21 09:37: SARS-CoV-2 (PCR) Detected A, Influenza A Untype (PCR) Not detected, Influenza Type B (PCR) Not detected 12/22/21 16:39: POC Glucose 118 H 12/22/21 19:04: Urine Color Yellow, Urine Appearance Cloudy, Urine pH 6.0, Ur Specific [place] >= 1.030, Urine Protein Negative, Urine Glucose (UA) Negative, Urine Ketones Negative, Urine Blood Trace-i, Urine Nitrate Positive, Urine Bilirubin Negative, Urine Urobilinogen 0.2, Ur Leukocyte Esterase 1+ A, Urine RBC 5-10, Urine WBC 10-20, Ur Squamous Epith Cells 3-5, Urine Bacteria 3+ 12/23/21 05:16: POC Glucose 178 H 12/23/21 06:05: WBC 12.6 H, RBC 3.92 L, Hgb 11.7 L, Hct 37.6, MCV 95.8, MCH 29.8, MCHC 31.1 L, RDW 14.5, Plt Count 241, MPV 8.1, Neut % (Auto) 88.8 H, Lymph % (Auto) 6.1 L, [place] % (Auto) 4.0, Eos % (Auto) 0.6, Baso % (Auto) 0.6, Neut # (Auto) 11.2 H, Lymph # (Auto) 0.8, [place] # (Auto) 0.5, Eos # (Auto) 0.1, Baso # (Auto) 0.1, Total Counted 100, Neutrophils % (Manual) 93 H, Lymphocytes % (Manual) 5 L, Monocytes % (Manual) 1 L, Eosinophils % (Manual) 1, Platelet Estimate Normal 12/23/21 06:05: Sodium 133 L, Potassium 4.4, Chloride 101, Carbon Dioxide 27, Anion Gap 9.4, BUN 25 H, Creatinine 0.60, Estimated Creat Clear 70, Estimated GFR 102, Est GFR ( Amer) 123, Glucose 192 H D, Calcium 8.4, Total Bilirubin 1.3, AST 33 D, ALT 23, Alkaline Phosphatase 79, Total Protein 6.6, Albumin 3.8, Globulin 2.8, Albumin/Globulin Ratio 1.4 I & O for Last 24 hours: Intake & Output 12/20/21 12/21/21 12/22/21 12/23/21 11:59 11:59 11:59 11:59 Intake Total 60 / 60 Output Total 600 / 600 Balance -540 / -540 Weight 156 lb 164 lb 9 oz - Constitutional no acute distress - *Routine HEENT Exam Head: Present: normocephalic Eye: Present: PERRL ENT: Present: mucous membranes moist - *Routine Neck Exam Present: supple. Absent: lymphadenopathy - *Routine Respiratory Exam Present: wheezes - *Routine Cardiovascular Exam Present: RRR - *Routine Abdominal Exam Present: soft, normoactive bowel sounds. Absent: tenderness - *Routine Extremities Exam Present: tenderness Comments: limited rom to rt leg - *Routine Skin Exam Present: warm. Absent: rash - *Routine Neurological Exam Present: alert, oriented X3 Assessment and Plan (1) Closed right hip fracture Status: Acute Qualifiers: Encounter type: initial encounter Qualified Code(s): S72.001A - Fracture of unspecified part of neck of right femur, initial encounter for closed fracture Category: Medical Code(s): S72.001A - Fracture of unspecified part of neck of right femur, initial encounter for closed fracture (2) Diabetes Status: Chronic Category: Medical Code(s): E11.9 - Type 2 diabetes mellitus without complications (3) History of CVA (cerebrovascular accident) Status: Chronic Category: Medical Code(s): Z86.73 - Personal history of transient ischemic attack (TIA), and cerebral infarction without residual deficits (4) Hyperlipidemia Status: Chronic Category: Medical Code(s): E78.5 -
[2021-12-23 10:20] LABS: ABG Base Excess 0.5 mmol/L (-2.4-2.3); ABG HCO3 25.1 mmhg (22.0-26.0); ABG Oxygen Saturation 87 % (90-100); ABG PCO2 40.3 mmhg (35.0-45.0); ABG PH 7.41 mmol/L (7.35-7.45); ABG PO2 50.8 mmhg (80-100); ABG TCO2 26.3 mmhg (23-27)
[2021-12-23 10:25] LABS: Oxygen room air %
[2021-12-23 10:26] LABS: Allen's Test acceptable; Source Right Radial
--- NOTE | 2021-12-23 10:27 | PC.NURSE ---
RESP CARE NOTE: Pt placed on 2 lpm nasal cannula after ABG performed and verified. Will continue to monitor patient.
--- NOTE | 2021-12-23 11:01 | CT_ITS ---
FINAL REPORT CLINICAL HISTORY: Hypoxia FINDINGS: Thin section axial CT images of the chest were obtained with contrast. 3D reformatted images were also obtained. This study was performed with techniques to keep radiation doses as low as reasonably achievable (ALARA). Individualized dose reduction techniques using automated exposure control or adjustment of mA and/or kV according to the patient's size were employed. The smaller lower lobe pulmonary arterial branches are suboptimally visualized but there is no evidence of pulmonary embolism. There is no evidence of thoracic aortic aneurysm or dissection. There is no evidence of mediastinal or hilar mass or adenopathy. There is no evidence of pulmonary mass or nodule. There is bilateral lower lobe atelectasis or pneumonia. Limited images of the upper abdomen demonstrate stones or sludge in the gallbladder. IMPRESSION: No evidence of pulmonary embolism. Bilateral lower lobe atelectasis or pneumonia. Stones or sludge in the gallbladder. Consider gallbladder ultrasound. Reviewed, Interpreted and Dictated by Bobby Parsons III, MD Transcribed by Shelly Aldridge Authenticated by Bobby Parsons III, MD on 12/23/2021 12:18:[address] [facility]
[2021-12-23 11:08] LABS: C-Reactive Protein 145.2 mg/L (0-4)
--- NOTE | 2021-12-23 13:03 | HMH.PULMCON ---
*Admission Date: 12/22/21 *Reason for consult:: Acute hypoxic respiratory failure, COVID-19 pneumonia *History of present illness: Ms. Pantoja is a 61-year-old female current smoker greater than [id number] smoking. Smokes 3 to 4 packs a day presented to the hospital with worsening respiratory distress and right femur intertrochanteric fracture and pulmonary was called for further management of her hypoxia and evaluate for surgical risk. . [facility] History Medical History: Reports:: Diabetes Mellitus Type 2, Hyperlipidemia Denies:: Coronary Artery Disease, Hypertension *Have you ever received a pneumonia vaccine?: No *Have you received a flu vaccine this season?: No Other Surgeries: Yes: Other - *Social History Smoking Status: Current every day smoker Tobacco Type: cigarettes # Packs/Day (cigarettes): 1 Alcohol Intake: never *Occupational Status:: disabled Housing: assisted living facility *Travel in the last 8 weeks: None Family Hx:: No significant family history ROS - Cons Reports fatigue - Eyes Reports blurry vision - ENT Denies nosebleed - Card Reports shortness of breath, Reports shortness of breath with activity - Resp Respiratory: Reports chest congestion, Reports cough, Reports wheezing - GI Gastrointestingal: Denies: abdominal pain - [place] Musculoskeletal: Reports back pain, Reports deformity, Reports limited range of motion - Psych Reports abnormal sleep pattern Meds Home Medications Medication Instructions Recorded Confirmed Type acetaminophen 500 mg capsule 500 mg PO Q4HP PRN 09/14/21 12/22/21 History metformin 500 mg tablet 500 mg PO BIDWMEAL tab 09/14/21 12/22/21 History Cyclobenzaprine HCl 10 mg PO TIDP PRN 12/22/21 12/22/21 History [Cyclobenzaprine 10mg Tab*] Duloxetine HCl 40 mg PO DAILY 12/22/21 12/22/21 History Hydrocodone/Acetaminophen [Lortab 1 tab PO BID 12/22/21 12/22/21 History 10/325mg tablet] Insulin Glargine,Hum.rec.anlog 14 unit SQ HS 12/22/21 12/22/21 History [Lantus] Lactulose 30 ml PO DAILYP PRN 12/22/21 12/22/21 History Loperamide HCl [Loperamide] 2 mg PO Q6HP PRN 12/22/21 12/22/21 History Ondansetron [Zofran 4mg ODT] 4 mg PO TIDP PRN 12/22/21 12/22/21 History Promethazine HCl [Phenergan 25mg 25 mg PO Q8HP PRN 12/22/21 12/22/21 History tab] polyethylene glycoL 3350 [Miralax 17 gm PO DAILYP PRN 12/22/21 12/22/21 History 17gm Packet] predniSONE [Deltasone 10mg 10 mg PO DAILY 12/22/21 12/22/21 History tablet] Allergies Allergy/AdvReac Type Severity Reaction Status Date / Time codeine Allergy Unknown Verified 11/02/21 13:05 Sulfa (Sulfonamide Allergy Unknown Verified 11/02/21 13:05 Antibiotics) Exam - Constitutional Constitutional:: Present: no acute distress - HENMT Exam HENMT: Present: normocephalic - Eye Exam Eyes:: Present: normal appearance both eyes and related structures - Neck Exam Neck:: Present: normal visual inspection - Respiratory Exam Respiratory:: Present: able to speak in complete sentences, no respiratory distress, wheezing - Cardiovascular Exam Cardiac:: Present: S1, S2 - GI Exam GI:: Present: soft, no hepatosplenomegaly - Skin Exam Skin: Present: warm, no rash - Neurological Exam Neurological: Present: alert, awake, normal cognition - Extremities Exam Extremities: Present: no cyanosis, no clubbing, no edema Internal Medicine - CN: Reslt - Labs CBC & Chem 7: 12/23/21 06:05 12/23/21 06:05 Labs: Short CBC 12/23/21 Range/Units 06:05 WBC 12.6 H (4.8-10.8) K/mm3 Hgb 11.7 L (12.2-16.2) g/dL Hct 37.6 (37.0-47.0) % Plt Count 241 (142-424) K/mm3 BMP 12/23/21 06:05 Sodium 133 L Potassium 4.4 Chloride 101 Carbon Dioxide 27 BUN 25 H Creatinine 0.60 Glucose 192 H D Calcium 8.4 Liver Function 12/23/21 Range/Units 06:05 Total Bilirubin 1.3 (0.2-1.3) mg/dl AST 33 D (14-36) U/L ALT 23 (12-78) U/L Alkaline Chris
--- NOTE | 2021-12-23 13:50 | HMH.ANESCL ---
[facility] Anesthesia Checklist - Patient Identification Patient Identification: Arm Band - Structural Data Admitted From: Inpatient Planned Operative Procedure/s: Gamma nail Consent for Planned Operative Procedure(s) Verified: Yes - NPO Status Verified Time NPO: 00:00 - Airway Assessment C-Spine Mobility Assessed: Yes TMJ Mobility Assessed: Yes Dentition: Poor Dentition - Neurological Assessment Level of Consciousness: Awake Hx Seizures: No Numbness or tingling in extremities: No - Anesthesia Plan Anesthesia Risk discussed: Yes Anesthesia Plan: Verified (Patient refuses spinal. Advised patient of increased risks of pulmonary complications, including unable to wean ioff ventilator. Dr. Santos states that he advised patient of risks as well. Patient wishes to continue with general anesthesia.After consulting with pulmonology, decision made to proceed) ASA Class: IV Anesthesia Type: General (LMA) [facility] History I have reviewed the patient's past medical history: Yes Medical History: Reports:: Diabetes Mellitus Type 2, Hyperlipidemia, Lung Disease (Current COVID. Pneumonia/atelectasis.), Transient Ischemic Attacks (TIA) Denies:: Coronary Artery Disease, Hypertension *Have you ever received a pneumonia vaccine?: No *Have you received a flu vaccine this season?: No Anesthesia experience/problems:: None Other Surgeries: Yes: Other - *Social History Smoking Status: Current every day smoker Tobacco Type: cigarettes # Packs/Day (cigarettes): 1 Alcohol Intake: never Substance Use Type: denies use *Occupational Status:: disabled Housing: assisted living facility *Travel in the last 8 weeks: None Family Hx:: No significant family history
--- NOTE | 2021-12-23 16:19 | XR_ITS ---
PROCEDURE INFORMATION: Exam: FL Unlisted Fluoroscopic Procedure Exam date and time: 12/23/2021 2:57 PM Age: 61 years old Clinical indication: Device placement; Other: Gamma nail TECHNIQUE: Imaging protocol: Unlisted fluoroscopic procedure (eg, diagnostic, interventional). The interpreting radiologist was not present during the examination. COMPARISON: CR XR HIP RT 2-3V W/PELVIS 12/22/2021 8:11 AM RADIATION DOSE METRICS: Fluoroscopy time (seconds): Not available Number of fluoro spot images: Not available FINDINGS/IMPRESSION: Multiple intra operative fluoroscopic images. There is a comminuted intertrochanteric fracture. There was placement of a intramedullary nail which is in adequate anatomic alignment. Please review postoperative report for complete details.
--- NOTE | 2021-12-23 16:51 | HMH.ANESI ---
[facility] Anesthesia Record Part I Intake, IV Amount: 600 Estimated blood loss (mL): 150 Urine output (mL): 0 Blood Pressure: 153/75 SaO2: 92 Pulse Rate: 111 Respiratory Rate: 16 Temperature: 97.5 F Patient is:: Drowsy, Oral/Nasal airway Stable to PACU at:: 16:42
--- NOTE | 2021-12-23 17:16 | PC.NURSE ---
Spoke with Mindi from PACU for report
--- NOTE | 2021-12-23 17:24 | HMH.OPNOTE ---
Date of procedure: 12/23/21 Pre-op Diagnosis:: Closed, comminuted, displaced intertrochanteric fracture, right hip Post-op Diagnosis:: Same Procedure performed:: Cephalomedullary nailing, right femur Surgeon:: Ilia Smith MD CLINICAL MARKETING MANAGER:: Nga Chester Anesthesia: LMA Estimated blood loss (mL): 150 Clinical Note:: Patient is a 61-year-old female who had a mechanical fall after tripping over the bathroom door, sustaining an injury to her right hip yesterday. Following evaluation in the emergency room where x-ray showed a comminuted, displaced, unstable intertrochanteric fracture of the right proximal femur, patient was admitted for further management. After evaluating the patient, I have discussed the diagnosis and management options in detail including nonsurgical and surgical, with the patient. After a detailed discussion with the patient, a decision was made to fix the fracture internally with a cephalo-medullary nail. I have discussed the procedure, risks and benefits, postoperative recovery and rehabilitation and the expected outcomes. The complications discussed include but are not limited to DVT, PE, infection, bleeding, injury to nerves and blood vessels, screw cut-out/implant failure, loss of fixation, nonunion, malunion/malrotation, osteonecrosis of the femoral head, femoral shaft fracture, painful hardware, heterotopic ossification, stiffness, weakness, incomplete relief of pain, incomplete return of function or motion and the likely need for further surgery in future, and anesthetic/medical complications including heart attack, stroke, transfusion reaction or . The patient wished to proceed with the surgical remediation. Patient previously had similar surgery on her left side several years ago. Consent form was reviewed and signed by me. The limb was appropriately marked and initialed by me. Following appropriate preoperative workup including preoperative clearances, patient is brought to the operating room for surgery. The surgery is indicated to stabilize the fracture, relieve pain and improve function. Patient understood the risks, agreed to proceed with surgery, signed the consent form and no guarantees or assurances were given or implied. Please refer to my consult note for full details. Operative findings:: Comminuted, displaced, unstable intertrochanteric fracture right proximal femur as noted on the preoperative imaging. The fracture was reduced and fixed in a stable fashion with an intermediate cephalomedullary nail. The tip-apex distance at the end of the procedure is 15 mm. Bone quality is good. Operative note:: Following appropriate preoperative workup and medical, pulmonary and cardiac clearance, patient is brought to the operating room. Patient is Covid positive; therefore, all the OR personnel followed appropriate current hospital protocols during the procedure. A general anesthesia was administered by the boiler control technician. Patient was then positioned supine on the fracture table and all the bony prominences were appropriately padded. The right foot was secured in the footplate and the footplate was attached to the fracture table. The left leg was placed out of the way in a leg monet. Under fluoroscopic guidance the fracture was was reduced and satisfactory reduction confirmed. The right hip and thigh were then prepped and draped in the usual sterile fashion. Administration of prophylactic antibiotics was confirmed with the boiler control technician (2 g of IV Ancef and vancomycin were administered). A preprocedure timeout was performed as per the hospital protocol. After marking the level of the greater trochanter on the skin under fluoroscopy, a skin incision was made proximal to the greater trochanter in line with the femoral shaft. The dissection was then carried through the subcutaneous tissue. The tensor fascia muscle was split in line with the fibers. This provided access to the tip of the greater trochanter. Under fluoroscopic guidance a
[2021-12-23 17:25] LABS: Microscopic,Cath URINE MICROSCOPIC (MICROSCOPIC)
--- NOTE | 2021-12-23 17:40 | SUR.PHASEI ---
1711- detailed report called to sivan cabral on medsur floor. 1713- pt left in stable condition with sivan asencio on medsur floor at this time. Ice pack in place, pt transported on 5L oxygen.
[2021-12-23 17:57] LABS: Appearance,Urine/Cath CLOUDY (Clear); Bilirubin,Cath Negative (Negative); Blood, Urine/Cath 2+ (Negative); Color,Urine/Cath YELLOW (Yellow); Glucose,Urine/Cath (UA) 2+ (Negative); Ketones,Urine/Cath 2+ (Negative); Leukocyte Esterase,Cath 2+ (Negative); Nitrate,Cath Negative (Negative); PH,Urine/Cath 5.5 (5.0-8.5); Protein,Urine/Cath TRACE (Negative); Urobilinogen,Cath 0.2 EU/dl (0.2)
[2021-12-23 18:11] LABS: Bacteria,Urine/Cath 4+ /lpf; WBC,Urine/Cath TNTC #/hpf (0-3)
[2021-12-24] VITALS (13 sets, daily range): BP systolic 104–167; BP diastolic 58–98; PULSE 90–113; RESP 16–20; TEMP 36.3–37.1; O2SAT 93–100; BMI 25.2
[2021-12-24 05:52] LABS: POC Glucose,Bedside 184 (70-110)
[2021-12-24 05:52] LABS: POC Glucose,Bedside 309 (70-110)
[2021-12-24 05:52] LABS: POC Glucose,Bedside 254 (70-110)
[2021-12-24 07:03] LABS: Basophils % 0.1 % (0.1-2.0); Hematocrit 31.5 % (37.0-47.0); Hemoglobin 10.2 g/dL (12.2-16.2); Lymphocytes # 0.4 K/mm3 (0.7-4.5); Lymphocytes % 3.3 % (10-50); Mean Corpuscular HGB Conc 32.4 g/dL (31.8-35.4); Mean Corpuscular Hemoglobin 30.1 pg (27.0-31.2); Mean Corpuscular Volume 92.9 fl (81-99); Mean Platelet Volume 8.7 fl (7.4-10.4); Monocytes # 0.3 K/mm3 (0.1-1.0); Monocytes % 2.7 % (1.7-9.3); Neutrophils # 11.3 K/mm3 (1.8-7.8); Neutrophils % 93.8 % (37.0-80.0); Platelet Count 166 K/mm3 (142-424); Red Blood Count 3.39 M/mm3 (4.20-5.40); Red Cell Distribution Width 14.3 % (11.5-17.5)
[2021-12-24 07:12] LABS: MANUAL DIFFERENTIAL MANUAL DIFFERENTIAL (MANUAL DIFF)
[2021-12-24 07:25] LABS: Alanine Aminotransferase 26 U/L (12-78); Albumin Level 3.1 g/dl (3.5-5.0); Albumin/Globulin Ratio 1.1 (1.1-1.8); Alkaline Phosphatase 77 U/L (38-126); Anion Gap 8.3 mEq/L (5-15); Aspartate Amino Transferase 29 U/L (14-36); Bilirubin,Total 0.7 mg/dl (0.2-1.3); Blood Urea Nitrogen 16 mg/dl (7-17); Calcium 7.9 mg/dl (8.4-10.2); Carbon Dioxide 27 mmol/L (22.0-30.0); Chloride 103 mmol/L (98-107); Creatinine Clearance Estimated 71 mL/min (50-200); Estimated Glomerular Filt Rate 102 ml/min (>60); GFR (African American) 123 ML/MIN (>60); Globulin 2.7 g/dL (1.3-3.2); Glucose 212 mg/dl (74-100); Potassium 4.3 mmoL/L (3.5-5.1); Sodium 134 mmol/L (136-145); Total Protein,Serum 5.8 g/dl (6.3-8.2)
[2021-12-24 07:44] LABS: Lymphocytes % 6 % (10-50); Monocytes % 3 % (2-9); Neutrophils % 91 % (42-76); Platelet Estimate Normal; RBC Morphology Normal; Total Cells Counted 100
--- NOTE | 2021-12-24 09:01 | HMH.OTEV ---
OT Inpatient Evaluation Rehab OT IP Evaluation Start: 12/23/21 17:27 Freq: ONCE Status: Complete Protocol: Document 12/24/21 08:[facility] (Rec: 12/24/21 09:01 [facility] [id number]) Rehab OT IP Assessment Subjective History Pt oriented x 3 on arrival. Pt agreeable to engage in therapy evaluation. Pt was admitted on 12/22/21 due to right hip fx after a fall. She lived at [facility] prior to being admitted in the hospital. Pt required a right Cephalomedullary nailing on 12/23/21. Pt reports prior to her fall she did require assistance with ADLS. She needed help with lower body dressing and bathing. She was able to feed herself independently after set up of food. Pt was dependent upon staff to complete all IADLs. 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 The following information was copied from history and physical report: 61-year-old white female who presented to the emergency department after a fall at home. The patient states that she was coming out of her bathroom and caught the toes of her left foot on the door and she jumped back and fell. The patient injured her right hip and her right hand during this fall. The patient reports having a prior fracture of the right hand as well as significant arthritis with deformity. The patient called EMS due to the pain in her right hip after the fall. She presented to the emergency department and does have a fracture of the right hip. She is scheduled to
--- NOTE | 2021-12-24 09:01 | HMH.ORTHPN ---
Subjective Date: 12/24/21 <RootFrancie navarrete - 12/24/21 09:02> Time: 08:45 <Francie Root - 12/24/21 09:02> Principal diagnosis: s/p cephalomedullary nailing, right femur <Francie Root - 12/24/21 09:09> Interval history: Patient is a 61-year-old female admitted to the acute inpatient service following an uneventful right cephalomedullary nailing yesterday 12/23/2021. Today she is postop day #1. This morning the patient is lying comfortably in bed. She reports pain in her right hip as to be expected at this stage but states that it is well controlled with pain medication. She states that she was able to get some rest last night. She reports that she is eating and drinking well and denies any episodes of nausea or vomiting. She denies chest pain, palpitations, fevers, chills, rigors, or distal tingling/numbness. She states that she was able to sit at the side of the bed this morning with the assistance of physical therapy, but has not ambulated yet. She denies any other symptoms or concerns at this time. <Francie Root - 12/24/21 09:09> PN: Obj Ex Vital signs: Temp Pulse Resp BP Pulse Ox 98.8 F 100 H 20 113/68 98 12/24/21 12:00 12/24/21 12:00 12/24/21 12:00 12/24/21 12:00 12/24/21 14:07 <Ilia Smith - 12/24/21 15:34> Temp Pulse Resp BP Pulse Ox 98.6 F 100 H 18 108/71 L 98 12/24/21 08:00 12/24/21 08:00 12/24/21 08:44 12/24/21 08:00 12/24/21 08:00 <Francie Root - 12/24/21 09:02> - Constitutional no acute distress, cooperative <Francie Root - 12/24/21 09:09> - Routine HEENT Exam Head: Present: normocephalic, atraumatic <Francie Root - 12/24/21 09:09> Eye: Present: EOMI, PERRL <Francie Root 12/24/21 09:09> ENT: Present: mucous membranes moist <Francie Root 12/24/21 09:09> - Routine Neck Exam Present: supple, trachea midline. Absent: full ROM, JVD, lymphadenopathy <Francie Root 12/24/21 09:09> - Routine Respiratory Exam Absent: accessory muscle use, respiratory distress <Francie Root 12/24/21 09:09> Comments: Symmetric chest movement, able to speak in complete sentences <Francie Root 12/24/21 09:09> - Routine Cardiovascular Exam Present: RRR. Absent: JVD <Francie Root 12/24/21 09:09> Comments: Normal peripheral pulses <Francie Root 12/24/21 09:09> - Routine Abdominal Exam Present: soft. Absent: tenderness <Francie Root 12/24/21 09:09> - Routine Extremities Exam Present: pulses intact. Absent: calf tenderness <Francie Root 12/24/21 09:09> Comments: Upon examination the lower extremities: The limb lengths are equal. Upon examination of the right hip, dressings present are clean, dry, and intact. No evidence of drainage or bleeding noted. Attempted movements of the right hip are somewhat painful as to be expected at this stage. Thigh and calf are soft nontender; Homans' sign is negative. No clinical evidence of DVT noted. Posterior tibial pulse 1+; capillary refill is brisk. Sensation to light touch is grossly intact throughout. Patient is actively mobilizing the knee, foot, ankle, and toes. <Francie Root 12/24/21 09:09> - Routine Skin Exam Present: intact, warm, normal turgor. Absent: cyanosis, erythema, jaundice <Francie Root 12/24/21 09:09> - Routine Neurological Exam Present: alert, oriented X3, CN II-XII intact, moving all extremities, normal tone, normal speech. Absent: sensory deficit, motor deficit, altered mental status <Root,Francie 12/24/21 09:09> - Routine Psychiatric Exam Present: normal affect, cooperative <RootFrancie - 12/24/21 09:09> - Urinary Catheter Management Brar Cath placed during this visit: no <Ilia Smith - 12/24/21 15:34> no <Francie Root - 12/24/21 13:58> Urethral indwelling: Yes <Francie Root - 12/24/21 09:09> Progress Note: A&P (1) Closed right hip fracture
--- NOTE | 2021-12-24 09:10 | HMH.PTEV ---
Physical Therapy Evaluation Rehab PT IP Evaluation Start: 12/23/21 17:27 Freq: ONCE Status: Active Protocol: Document 12/24/21 09:00 DENISSE (Rec: 12/24/21 09:09 DENISSE [id number]) Subjective/History History History Patient is a 61 year old female presenting to outpatient PT with reports of R post-surgical hip pain S/P R hip IM nail ORIF secondary to fall at SNF. Patient reports that she fell after tripping on the bathroom door at [place]. Patient previously used jonna-walker for ambulation. 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 Subjective Subjective My back and my hip hurts. Rehab PT IP Eval Objective Appearance Patient Behavior Cooperative Patient Orientation Person,Birthday Speech Pattern Clear,Appropriate Ambulation Patient Able to Ambulate No Balance Sitting Balance Leans or slides in chair Dynamic Sitting Balance Ability Good Transfers Bed Transfer Ability Total/Dependent (100%) ROM RLE PT ROM Status WFL MMT RLE PT MMT ABN Rehab PT IP prob,goals,plan Problems Date of Evaluation: 12/24/21 PT IP Problems Bed Mobility,Transfers,Gait, Balance,Self care,Safety Rehab Potential Rehab Potential Fair Equipment Needs Assistive Devices Rolling / Wheeled Walker Plan PT Intervention Plan Bed Mobility,Transfers,Gait, Balance,Self care,Safety, Therapeutic Exercise PT Plan Frequency BID Duration LOS Discharge Goals Bed Transfer Ability Moderate x 2 (50% assist) Sit to Stand Chair Transfer Ability Moderate x 2 (50% assist) Ambulation Assistive Device Rolling Walker Discharge Plan PT Discharge Plan Patient to discharge back to SNF once deemed medically stable by . G -code Required No PHYSICIAN CERTIFICATION: I certify the specified therapy services for Giovana Pantoja are required, authorized, and reviewed every 30 days.
--- NOTE | 2021-12-24 09:14 | HMH.PULMPN ---
Internal Medicine - PN: Subj *Date: 12/24/21 *Time: 10:27 Interval history: Status post hip surgery. Exam - Constitutional Constitutional:: Present: no acute distress, comfortable - HENMT Exam HENMT: Present: normocephalic, atraumatic - Eye Exam Eyes:: Present: normal appearance both eyes and related structures - Neck Exam Neck:: Present: normal visual inspection - Respiratory Exam Respiratory:: Present: able to speak in complete sentences, no respiratory distress, normal respiratory effort. Absent: wheezing - Cardiovascular Exam Cardiac:: Present: S1, S2 - GI Exam GI:: Present: soft - Skin Exam Skin: Present: warm, no rash - Neurological Exam Neurological: Present: alert, awake - Extremities Exam Extremities: Present: no cyanosis, no clubbing, no edema Assessment and Plan (1) Closed right hip fracture Status: Acute Qualifiers: Encounter type: initial encounter Qualified Code(s): S72.001A - Fracture of unspecified part of neck of right femur, initial encounter for closed fracture Category: Medical Code(s): S72.001A - Fracture of unspecified part of neck of right femur, initial encounter for closed fracture (2) Diabetes Status: Chronic Category: Medical Code(s): E11.9 - Type 2 diabetes mellitus without complications (3) History of CVA (cerebrovascular accident) Status: Chronic Category: Medical Code(s): Z86.73 - Personal history of transient ischemic attack (TIA), and cerebral infarction without residual deficits (4) Hyperlipidemia Status: Chronic Category: Medical Code(s): E78.5 - Hyperlipidemia, unspecified (5) Injury of knee, right Status: Acute Category: Medical Code(s): S89.91XA - Unspecified injury of right lower leg, initial encounter - Assessment and plan all Dx Assessment and Plan for all problems:: #Acute hypoxic respiratory failure: #Community-acquired pneumonia: #COVID-19 pneumonia: 61-year-old female current smoker greater than 50-bxrh-gvch smoking. Not using any inhalers at baseline. Not on any oxygen but admits baseline respiratory symptoms worsen for the last week. She admits to being diagnosed with COVID-19 pneumonia a month ago however she also admits negative test prior to her current positive test on this admission. I do not have access to the prior testing at this point of time. We will initiate treatment for active COVID-19 pneumonia pending record review Auscultation revealed bilateral diffuse wheezing with lower lobe rhonchi. Patient on examination today saturating 86% on room air. Blood gas on room air showed hypoxia with a PO2 of 50.8. ERP significant elevated 145.2. CTA performed did not show any groundglass opacities, showed bilateral lower lobe atelectasis and airspace disease, right greater than left. No Evidence of pulmonary embolism noted. Interval update: Status post hip surgery. Urine culture positive for E. coli sensitive to ceftriaxone and Bactrim, resistant to levofloxacin. continue to receive remdesivir. Respiratory significantly improved, on room air saturating 98% and above. Auscultation showed improving wheezing. Patient is not ready to quit smoking at this point of time. Patient prefers inhaler than nebulizer treatments. Plan: -Change inhalers to Trelegy along with albuterol every 6 hours as needed. -Continue oxygen supplementation to maintain O2 saturation goal of 90% and above -Sputum cultures -Continue ceftriaxone and azithromycin for possible community-acquired pneumonia, can be weaned to Bactrim upon discharge -COntinue remdesivir x 5 days / utill discharge for COVID-19 pneumonia. We will closely monitor. Obtain medical records regarding patient's prior COVID-19 testing #Thank for involving pulmonary in this patient care. Follow the patient in pulmonary clinic in 4 to 6 weeks with a full PFT testing.
--- NOTE | 2021-12-24 10:05 | PC.NURSE ---
IS given to patient. Instructed patient on use, benefit of using IS and how often she should ideally be using device. Pt verbalized understanding and demonstrated proper use. IS @ best this AM = 1250. Ice pack applied to pt's right hip. Dressing C/D/I. Pt reported 10/10 pain in right leg , prn lortab admin per DEC w/ favorable results voiced.
--- NOTE | 2021-12-24 10:35 | P.PN_ITS ---
[facility] Anesthesia Record Part II Discharge Time: 17:12 Destination: Second Floor PACU nurse assessment reviewed?: Yes Patient Condition:: Good Anesthesia Complications:: None Swallowing reflex intact?: Yes Cyanosis?: No Blood Pressure: 155/70 Pulse Rate: 100 Temperature: 97.4 F Mental Status: Alert & Oriented Pain level:: 0 Nausea and/or vomitting:: None Intake, IV Amount: 0
[2021-12-24 11:53] LABS: POC Glucose,Bedside 179 (70-110)
[2021-12-24 16:37] LABS: POC Glucose,Bedside 223 (70-110)
--- NOTE | 2021-12-24 17:06 | HMH.ACPN2 ---
Internal Medicine - PN: Subj *Date: 12/24/21 *Time: 09:00 Interval history: pt laying in bed. Exam Vital signs and Labs for Last 24 Hours: Temp Pulse Resp BP Pulse Ox 98.8 F 100 H 16 113/68 98 12/24/21 12:00 12/24/21 12:00 12/24/21 16:10 12/24/21 12:00 12/24/21 14:07 Laboratory Results - last 24 hr 12/23/21 11:57: POC Glucose 184 H 12/23/21 14:45: Urine Color Yellow, Urine Appearance Cloudy, Urine pH 5.5, Ur Specific Lovely 1.020, Urine Protein Trace, Urine Glucose (UA) 2+, Urine Ketones 2+, Urine Blood 2+, Urine Nitrate Negative, Urine Bilirubin Negative, Urine Urobilinogen 0.2, Ur Leukocyte Esterase 2+ A, Urine RBC 10-20, Urine WBC Tntc A, Ur Squamous Epith Cells None, Urine Bacteria 4+ A 12/23/21 17:34: POC Glucose 254 H 12/23/21 20:02: POC Glucose 309 H* 12/24/21 06:25: WBC 12.0 H, RBC 3.39 L, Hgb 10.2 L, Hct 31.5 L, MCV 92.9, MCH 30.1, MCHC 32.4, RDW 14.3, Plt Count 166 D, MPV 8.7, Neut % (Auto) 93.8 H, Lymph % (Auto) 3.3 L, Moca % (Auto) 2.7, Eos % (Auto) 0.0 L, Baso % (Auto) 0.1, Neut # (Auto) 11.3 H, Lymph # (Auto) 0.4 L, Moca # (Auto) 0.3, Eos # (Auto) 0.0, Baso # (Auto) 0.0, Total Counted 100, Neutrophils % (Manual) 91 H, Lymphocytes % (Manual) 6 L, Monocytes % (Manual) 3, Platelet Estimate Normal, RBC Morphology Normal 12/24/21 06:25: Sodium 134 L, Potassium 4.3, Chloride 103, Carbon Dioxide 27, Anion Gap 8.3, BUN 16 D, Creatinine 0.60, Estimated Creat Clear 71, Estimated GFR 102, Est GFR ( Amer) 123, Glucose 212 H, Calcium 7.9 L, Total Bilirubin 0.7, AST 29, ALT 26, Alkaline Phosphatase 77, Total Protein 5.8 L, Albumin 3.1 L D, Globulin 2.7, Albumin/Globulin Ratio 1.1 12/24/21 11:46: POC Glucose 179 H 12/24/21 16:19: POC Glucose 223 H I & O for Last 24 hours: Intake & Output 12/22/21 12/23/21 12/24/21 12/25/21 11:59 11:59 11:59 11:59 Intake Total 60 / 60 975 / 975 1114 / 1114 Output Total 600 / 600 1500 / 1500 1100 / 1100 Balance -540 / -540 -525 / -525 Weight 156 lb 164 lb 9 oz 166 lb 12.8 oz Microbiology Reports for the Last 24 Hours: Microbiology 12/23/21 14:45 Urine,Catheterized Urine Culture - Preliminary 12/22/21 19:04 Urine,Clean Catch Urine Culture - Final Escherichia coli - Constitutional no acute distress - *Routine HEENT Exam Head: Present: normocephalic Eye: Present: PERRL ENT: Present: mucous membranes moist - *Routine Neck Exam Present: supple. Absent: lymphadenopathy - *Routine Respiratory Exam Present: CTA bilaterally - *Routine Cardiovascular Exam Present: RRR - *Routine Abdominal Exam Present: soft, normoactive bowel sounds. Absent: tenderness - *Routine Extremities Exam Absent: cyanosis, clubbing, edema Comments: left side flacidd old cva - *Routine Skin Exam Present: warm. Absent: rash Comments: dressing c/d/i - *Routine Neurological Exam Present: alert, oriented X3 Assessment and Plan (1) Closed right hip fracture Status: Acute Qualifiers: Encounter type: initial encounter Qualified Code(s): S72.001A - Fracture of unspecified part of neck of right femur, initial encounter for closed fracture Category: Medical Code(s): S72.001A - Fracture of unspecified part of neck of right femur, initial encounter for closed fracture (2) Diabetes Status: Chronic Category: Medical Code(s): E11.9 - Type 2 diabetes mellitus without complications (3) History of CVA (cerebrovascular accident) Status: Chronic Category: Medical Code(s): Z86.73 - Personal history of transient ischemic attack (TIA), and cerebral infarction without residual deficits (4) Hyperlipidemia Status: Chronic Category: Medical Code(s): E78.5 - Hyperlipidemia, unspecified (5) Injury of knee, right Status: Acute Category: Medical Code(s): S89.91XA - Unspecified injury of right lower leg, initial encounter (6) COVID Status: Acute Category: Medical Code(s): U07.1 - COVID-
--- NOTE | 2021-12-24 17:10 | PC.NURSE ---
Pain meds admin per DEC twice this shift w/ adequate relief noted by patient. She did work w/ PT twice this shift, tolerated well. Dressing to (R) hip remains c/d/i. Ice pack in place. Pt has been weaned to room air, sat maintaining > 90% per MD orders. No needs voiced this shift. Call turpin w/in reach. Bed alarm in place.
[2021-12-24 22:12] LABS: POC Glucose,Bedside 166 (70-110)
[2021-12-25] VITALS: PULSE 100; PULSE 90
[2021-12-25 04:00] VITALS: BP 117/68; PULSE 106; PULSE 90; RESP 20; TEMP 37; O2SAT 97
[2021-12-25 04:42] VITALS: BMI 25.3
[2021-12-25 06:53] LABS: MANUAL DIFFERENTIAL MANUAL DIFFERENTIAL (MANUAL DIFF)
[2021-12-25 07:26] LABS: Eosinophils # 0.2 K/mm3 (0.0-0.4); Mean Corpuscular Hemoglobin 29.7 pg (27.0-31.2); Monocytes # 0.2 K/mm3 (0.1-1.0); Red Cell Distribution Width 14.8 % (11.5-17.5)
[2021-12-25 08:00] VITALS: BP 139/66; PULSE 100; PULSE 104; RESP 15; TEMP 37.2; O2SAT 96
[2021-12-25 08:18] LABS: Alanine Aminotransferase 15 U/L (12-78); Albumin Level 2.4 g/dl (3.5-5.0); Albumin/Globulin Ratio 1.1 (1.1-1.8); Alkaline Phosphatase 54 U/L (38-126); Anion Gap 6.4 mEq/L (5-15); Aspartate Amino Transferase 19 U/L (14-36); Bilirubin,Total 0.5 mg/dl (0.2-1.3); Blood Urea Nitrogen 16 mg/dl (7-17); Calcium 6.6 mg/dl (8.4-10.2); Carbon Dioxide 23 mmol/L (22.0-30.0); Chloride 101 mmol/L (98-107); Creatinine Clearance Estimated 71 mL/min (50-200); Estimated Glomerular Filt Rate 162 ml/min (>60); GFR (African American) 196 ML/MIN (>60); Globulin 2.1 g/dL (1.3-3.2); Glucose 113 mg/dl (74-100); Potassium 3.4 mmoL/L (3.5-5.1); Sodium 127 mmol/L (136-145); Total Protein,Serum 4.5 g/dl (6.3-8.2)
--- NOTE | 2021-12-25 08:50 | HMH.ACPN2 ---
Internal Medicine - PN: Subj *Date: 12/25/21 *Time: 08:50 Interval history: doing ok - no specific c/o Exam Vital signs and Labs for Last 24 Hours: Temp Pulse Resp BP Pulse Ox 98.6 F 100 H 20 117/68 97 12/25/21 04:00 12/25/21 08:00 12/25/21 04:00 12/25/21 04:00 12/25/21 04:00 Laboratory Results - last 24 hr 12/24/21 11:46: POC Glucose 179 H 12/24/21 16:19: POC Glucose 223 H 12/24/21 21:59: POC Glucose 166 H I & O for Last 24 hours: Intake & Output 12/22/21 12/23/21 12/24/21 12/25/21 11:59 11:59 11:59 11:59 Intake Total 60 / 60 975 / 975 1714 / 1714 Output Total 600 / 600 1500 / 1500 1102 / 1102 Balance -540 / -540 -525 / -525 612 / 612 Weight 156 lb 164 lb 9 oz 166 lb 12.8 oz 167 lb 3 oz Microbiology Reports for the Last 24 Hours: Microbiology 12/23/21 14:45 Urine,Catheterized Urine Culture - Preliminary 12/22/21 19:04 Urine,Clean Catch Urine Culture - Final Escherichia coli - Constitutional no acute distress - *Routine HEENT Exam Head: Present: normocephalic Eye: Present: EOMI, PERRL ENT: Present: mucous membranes dry - *Routine Neck Exam Absent: JVD - *Routine Respiratory Exam Present: CTA bilaterally - *Routine Cardiovascular Exam Present: RRR, murmur - *Routine Abdominal Exam Present: soft - *Routine Extremities Exam Absent: calf tenderness - *Routine Skin Exam Present: intact - *Routine Neurological Exam Present: alert, CN II-XII intact - Routine Psychiatric Exam Present: cooperative Assessment and Plan (1) Closed right hip fracture Status: Acute Qualifiers: Encounter type: initial encounter Qualified Code(s): S72.001A - Fracture of unspecified part of neck of right femur, initial encounter for closed fracture Category: Medical Code(s): S72.001A - Fracture of unspecified part of neck of right femur, initial encounter for closed fracture (2) Diabetes Status: Chronic Category: Medical Code(s): E11.9 - Type 2 diabetes mellitus without complications (3) History of CVA (cerebrovascular accident) Status: Chronic Category: Medical Code(s): Z86.73 - Personal history of transient ischemic attack (TIA), and cerebral infarction without residual deficits (4) Hyperlipidemia Status: Chronic Category: Medical Code(s): E78.5 - Hyperlipidemia, unspecified (5) Injury of knee, right Status: Acute Category: Medical Code(s): S89.91XA - Unspecified injury of right lower leg, initial encounter (6) COVID Status: Acute Category: Medical Code(s): U07.1 - COVID-19 (7) E. coli UTI (urinary tract infection) Status: Acute Category: Medical Code(s): N39.0 - Urinary tract infection, site not specified; B96.20 - Unspecified Escherichia coli [E. coli] as the cause of diseases classified elsewhere
[2021-12-25 09:20] LABS: Eosinophils % 4 % (0-3); Lymphocytes % 7 % (10-50); Monocytes % 1 % (2-9); Neutrophils % 88 % (42-76); Total Cells Counted 100
[2021-12-25 09:25] LABS: Basophils % 0.8 % (0.1-2.0); Eosinophils % 3.2 % (0.1-12.0); Hematocrit 25.2 % (37.0-47.0); Lymphocytes # 0.6 K/mm3 (0.7-4.5); Lymphocytes % 11.5 % (10-50); Mean Corpuscular Volume 92.7 fl (81-99); Mean Platelet Volume 9.2 fl (7.4-10.4); Monocytes % 4.1 % (1.7-9.3); Neutrophils # 4.2 K/mm3 (1.8-7.8); Neutrophils % 80.4 % (37.0-80.0); Platelet Count 149 K/mm3 (142-424); Red Blood Count 2.72 M/mm3 (4.20-5.40); White Blood Count 5.2 K/mm3 (4.8-10.8)
[2021-12-25 09:27] LABS: Hemoglobin 8.1 g/dL (12.2-16.2)
[2021-12-25 09:30] LABS: Platelet Estimate Normal; RBC Morphology Normal
[2021-12-25 12:00] VITALS: BP 168/96; PULSE 86; PULSE 96; RESP 16; TEMP 37.2; O2SAT 97
[2021-12-25 12:06] LABS: POC Glucose,Bedside 172 (70-110)
[2021-12-25 16:00] VITALS: BP 126/67; PULSE 90; PULSE 91; RESP 16; TEMP 36.7; O2SAT 98
[2021-12-25 20:00] VITALS: BP 144/90; PULSE 90; PULSE 92; RESP 16; TEMP 37; O2SAT 97
[2021-12-26] VITALS (7 sets, daily range): BP systolic 109–168; BP diastolic 69–89; PULSE 90–100; RESP 16; TEMP 36.8–37.1; O2SAT 94–97; BMI 25.4
[2021-12-26 07:11] LABS: MANUAL DIFFERENTIAL MANUAL DIFFERENTIAL (MANUAL DIFF)
[2021-12-26 07:33] LABS: Basophils % 0.6 % (0.1-2.0); Eosinophils # 0.3 K/mm3 (0.0-0.4); Eosinophils % 6.2 % (0.1-12.0); Hematocrit 30.1 % (37.0-47.0); Hemoglobin 9.5 g/dL (12.2-16.2); Lymphocytes # 0.9 K/mm3 (0.7-4.5); Lymphocytes % 16.3 % (10-50); Mean Corpuscular HGB Conc 31.6 g/dL (31.8-35.4); Mean Corpuscular Hemoglobin 29.7 pg (27.0-31.2); Mean Platelet Volume 8.3 fl (7.4-10.4); Monocytes # 0.3 K/mm3 (0.1-1.0); Monocytes % 5.6 % (1.7-9.3); Neutrophils # 3.9 K/mm3 (1.8-7.8); Neutrophils % 71.2 % (37.0-80.0); Platelet Count 211 K/mm3 (142-424); Red Cell Distribution Width 14.5 % (11.5-17.5); White Blood Count 5.4 K/mm3 (4.8-10.8)
[2021-12-26 07:39] LABS: Alanine Aminotransferase 15 U/L (12-78); Albumin/Globulin Ratio 1.1 (1.1-1.8); Alkaline Phosphatase 75 U/L (38-126); Anion Gap 6.9 mEq/L (5-15); Aspartate Amino Transferase 21 U/L (14-36); Bilirubin,Total 0.6 mg/dl (0.2-1.3); Blood Urea Nitrogen 14 mg/dl (7-17); Calcium 7.9 mg/dl (8.4-10.2); Carbon Dioxide 27 mmol/L (22.0-30.0); Chloride 105 mmol/L (98-107); Creatinine Clearance Estimated 71 mL/min (50-200); Estimated Glomerular Filt Rate 125 ml/min (>60); GFR (African American) 152 ML/MIN (>60); Globulin 2.8 g/dL (1.3-3.2); Glucose 151 mg/dl (74-100); Potassium 3.9 mmoL/L (3.5-5.1); Sodium 135 mmol/L (136-145); Total Protein,Serum 5.8 g/dl (6.3-8.2)
[2021-12-26 08:13] LABS: POC Glucose,Bedside 164 (70-110)
--- NOTE | 2021-12-26 09:38 | HMH.ACPN2 ---
Internal Medicine - PN: Subj *Date: 12/27/21 *Time: 07:00 Interval history: pt with no specific c/o passing gas Exam Vital signs and Labs for Last 24 Hours: Temp Pulse Resp BP Pulse Ox 98.7 F 98 H 16 109/82 L 97 12/26/21 07:58 12/26/21 07:58 12/26/21 07:58 12/26/21 07:58 12/26/21 07:58 Laboratory Results - last 24 hr 12/23/21 14:45: Urine Color Yellow, Urine Appearance Cloudy, Urine pH 5.5, Ur Specific [place] 1.020, Urine Protein Trace, Urine Glucose (UA) 2+, Urine Ketones 2+, Urine Blood 2+, Urine Nitrate Negative, Urine Bilirubin Negative, Urine Urobilinogen 0.2, Ur Leukocyte Esterase 2+ A, Urine RBC 10-20, Urine WBC Tntc A, Ur Squamous Epith Cells None, Urine Bacteria 4+ A 12/25/21 11:58: POC Glucose 172 H 12/26/21 06:05: WBC 5.4, RBC 3.20 L, Hgb 9.5 L, Hct 30.1 L, MCV 94.0, MCH 29.7, MCHC 31.6 L, RDW 14.5, Plt Count 211 D, MPV 8.3, Neut % (Auto) 71.2, Lymph % (Auto) 16.3, [place] % (Auto) 5.6, Eos % (Auto) 6.2, Baso % (Auto) 0.6, Neut # (Auto) 3.9, Lymph # (Auto) 0.9, [place] # (Auto) 0.3, Eos # (Auto) 0.3, Baso # (Auto) 0.0 12/26/21 06:05: Sodium 135 L, Potassium 3.9, Chloride 105, Carbon Dioxide 27, Anion Gap 6.9, BUN 14, Creatinine 0.50 L D, Estimated Creat Clear 71, Estimated GFR 125, Est GFR ( Amer) 152 D, Glucose 151 H, Calcium 7.9 L, Total Bilirubin 0.6, AST 21, ALT 15, Alkaline Phosphatase 75, Total Protein 5.8 L D, Albumin 3.0 L D, Globulin 2.8, Albumin/Globulin Ratio 1.1 12/26/21 06:37: POC Glucose 164 H I & O for Last 24 hours: Intake & Output 12/23/21 12/24/21 12/25/21 12/26/21 11:59 11:59 11:59 11:59 Intake Total 60 / 60 975 / 975 1963 / 1963 Output Total 600 / 600 1500 / 1500 1102 / 1102 3000 / 3000 Balance -540 / -540 -525 / -525 862 / 862 -1000 / -1000 Weight 164 lb 9 oz 166 lb 12.8 oz 167 lb 3 oz 167 lb 9.6 oz Microbiology Reports for the Last 24 Hours: Microbiology 12/23/21 14:45 Urine,Catheterized Urine Culture - Preliminary Gram Negative Rods - Constitutional no acute distress - *Routine HEENT Exam Head: Present: normocephalic Eye: Present: EOMI, PERRL ENT: Present: mucous membranes dry - *Routine Neck Exam Absent: JVD - *Routine Respiratory Exam Absent: respiratory distress - *Routine Cardiovascular Exam Present: RRR - *Routine Abdominal Exam Present: soft - *Routine Extremities Exam Absent: calf tenderness - *Routine Skin Exam Present: intact - *Routine Neurological Exam Present: alert, CN II-XII intact - Routine Psychiatric Exam Present: cooperative Assessment and Plan (1) Closed right hip fracture Status: Acute Qualifiers: Encounter type: initial encounter Qualified Code(s): S72.001A - Fracture of unspecified part of neck of right femur, initial encounter for closed fracture Category: Medical Code(s): S72.001A - Fracture of unspecified part of neck of right femur, initial encounter for closed fracture (2) Diabetes Status: Chronic Category: Medical Code(s): E11.9 - Type 2 diabetes mellitus without complications (3) History of CVA (cerebrovascular accident) Status: Chronic Category: Medical Code(s): Z86.73 - Personal history of transient ischemic attack (TIA), and cerebral infarction without residual deficits (4) Hyperlipidemia Status: Chronic Category: Medical Code(s): E78.5 - Hyperlipidemia, unspecified (5) Injury of knee, right Status: Acute Category: Medical Code(s): S89.91XA - Unspecified injury of right lower leg, initial encounter (6) COVID Status: Acute Category: Medical Code(s): U07.1 - COVID-19 (7) E. coli UTI (urinary tract infection) Status: Acute Category: Medical Code(s): N39.0 - Urinary tract infection, site not specified; B96.20 - Unspecified Escherichia coli [E. coli] as the cause of diseases classified elsewhere
[2021-12-26 11:05] LABS: Eosinophils % 2 % (0-3); Lymphocytes % 23 % (10-50); Monocytes % 2 % (2-9); Neutrophils % 73 % (42-76); Platelet Estimate Normal; Total Cells Counted 100
[2021-12-26 11:06] LABS: RBC Morphology Normal
[2021-12-26 11:41] LABS: POC Glucose,Bedside 240 (70-110)
--- NOTE | 2021-12-26 13:04 | P.PN_ITS ---
Internal Medicine - PN: Subj *Date: 12/26/21 *Time: 13:04 Exam Vital signs and Labs for Last 24 Hours: Temp Pulse Resp BP Pulse Ox 98.5 F 94 H 16 111/69 94 L 12/26/21 11:55 12/26/21 11:55 12/26/21 11:55 12/26/21 11:55 12/26/21 11:55 Laboratory Results - last 24 hr 12/26/21 06:05: WBC 5.4, RBC 3.20 L, Hgb 9.5 L, Hct 30.1 L, MCV 94.0, MCH 29.7, MCHC 31.6 L, RDW 14.5, Plt Count 211 D, MPV 8.3, Neut % (Auto) 71.2, Lymph % (Auto) 16.3, [place] % (Auto) 5.6, Eos % (Auto) 6.2, Baso % (Auto) 0.6, Neut # (Auto) 3.9, Lymph # (Auto) 0.9, [place] # (Auto) 0.3, Eos # (Auto) 0.3, Baso # (Auto) 0.0, Total Counted 100, Neutrophils % (Manual) 73, Lymphocytes % (Manual) 23, Monocytes % (Manual) 2, Eosinophils % (Manual) 2, Platelet Estimate Normal, RBC Morphology Normal 12/26/21 06:05: Sodium 135 L, Potassium 3.9, Chloride 105, Carbon Dioxide 27, Anion Gap 6.9, BUN 14, Creatinine 0.50 L D, Estimated Creat Clear 71, Estimated GFR 125, Est GFR ( Amer) 152 D, Glucose 151 H, Calcium 7.9 L, Total Bilirubin 0.6, AST 21, ALT 15, Alkaline Phosphatase 75, Total Protein 5.8 L D, Albumin 3.0 L D, Globulin 2.8, Albumin/Globulin Ratio 1.1 12/26/21 06:37: POC Glucose 164 H 12/26/21 11:04: POC Glucose 240 H I & O for Last 24 hours: Intake & Output 12/23/21 12/24/21 12/25/21 12/26/21 23:59 23:59 23:59 23:59 Intake Total 600 / 600 1729 / 1729 1470 / 1470 1140 / 1140 Output Total 600 / 1900 2600 / 2600 2 / 402 3000 / 3000 Balance 0 / -1300 -871 / -871 1468 / 1068 -1860 / -1860 Weight 74.6 kg 75.659 kg 75.835 kg 76.022 kg Microbiology Reports for the Last 24 Hours: Microbiology 12/23/21 14:45 Urine,Catheterized Urine Culture - Preliminary Gram Negative Rods Assessment and Plan (1) Closed right hip fracture Status: Acute Qualifiers: Encounter type: initial encounter Qualified Code(s): S72.001A - Fracture of unspecified part of neck of right femur, initial encounter for closed fracture Category: Medical Code(s): S72.001A - Fracture of unspecified part of neck of right femur, initial encounter for closed fracture (2) Diabetes Status: Chronic Category: Medical Code(s): E11.9 - Type 2 diabetes mellitus without complications (3) History of CVA (cerebrovascular accident) Status: Chronic Category: Medical Code(s): Z86.73 - Personal history of transient ischemic attack (TIA), and cerebral infarction without residual deficits (4) Hyperlipidemia Status: Chronic Category: Medical Code(s): E78.5 - Hyperlipidemia, unspecified (5) Injury of knee, right Status: Acute Category: Medical Code(s): S89.91XA - Unspecified injury of right lower leg, initial encounter (6) COVID Status: Acute Category: Medical Code(s): U07.1 - COVID-19 (7) E. coli UTI (urinary tract infection) Status: Acute Category: Medical Code(s): N39.0 - Urinary tract infection, site not specified; B96.20 - Unspecified Escherichia coli [E. coli] as the cause of diseases classified elsewhere The patient's infection will respond to the chosen ABx?: Yes Is the patient receiving the right drug, dose, and route?: Yes Could a more targeted ABx be ordered?: No (URINE CX + FOR E COLI-SENSITIVE TO ROCEPHIN)
--- NOTE | 2021-12-26 22:30 | ECG_ITS ---
APPROVED REPORT Exam: Resting ECG HR:86 bpm ECG Measurements Heart Rate 86 AXES WV 166 P 50 QRSd 78 QRS 10 QT 351 T 47 QTc 394 Conclusion SINUS RHYTHM NORMAL ECG UNCONFIRMED REPORT Electronically signed by : Keny Hartman MD 12/28/2021 16:47:23
[2021-12-27] VITALS (9 sets, daily range): BP systolic 102–146; BP diastolic 65–83; PULSE 80–101; RESP 16–19; TEMP 36.4–37.3; O2SAT 91–98; BMI 24.7
[2021-12-27 01:22] LABS: POC Glucose,Bedside 221 (70-110)
--- NOTE | 2021-12-27 02:52 | PC.NURSE ---
late entry - some st elevation noted on telemetry. Pt asymptomatic. EKG obtained by RT at 2215. Took new EKG and old EKG to ED MD. No acute ischemic changes - signed off by Dr. Kelley.
[2021-12-27 05:43] LABS: POC Glucose,Bedside 157 (70-110)
[2021-12-27 06:14] LABS: MANUAL DIFFERENTIAL MANUAL DIFFERENTIAL (MANUAL DIFF)
[2021-12-27 06:29] LABS: Alanine Aminotransferase 16 U/L (12-78); Albumin Level 3.2 g/dl (3.5-5.0); Albumin/Globulin Ratio 1.2 (1.1-1.8); Alkaline Phosphatase 80 U/L (38-126); Anion Gap 8.9 mEq/L (5-15); Aspartate Amino Transferase 21 U/L (14-36); Bilirubin,Total 0.6 mg/dl (0.2-1.3); Blood Urea Nitrogen 13 mg/dl (7-17); Calcium 8.2 mg/dl (8.4-10.2); Carbon Dioxide 27 mmol/L (22.0-30.0); Chloride 103 mmol/L (98-107); Creatinine Clearance Estimated 69 mL/min (50-200); Estimated Glomerular Filt Rate 125 ml/min (>60); GFR (African American) 152 ML/MIN (>60); Globulin 2.7 g/dL (1.3-3.2); Glucose 159 mg/dl (74-100); Potassium 3.9 mmoL/L (3.5-5.1); Sodium 135 mmol/L (136-145); Total Protein,Serum 5.9 g/dl (6.3-8.2)
[2021-12-27 06:39] LABS: Basophils % 0.6 % (0.1-2.0); Eosinophils # 0.3 K/mm3 (0.0-0.4); Eosinophils % 5.4 % (0.1-12.0); Hemoglobin 9.9 g/dL (12.2-16.2); Lymphocytes # 0.9 K/mm3 (0.7-4.5); Lymphocytes % 15.7 % (10-50); Mean Corpuscular HGB Conc 31.9 g/dL (31.8-35.4); Mean Corpuscular Hemoglobin 29.8 pg (27.0-31.2); Mean Corpuscular Volume 93.4 fl (81-99); Mean Platelet Volume 8.4 fl (7.4-10.4); Monocytes # 0.3 K/mm3 (0.1-1.0); Monocytes % 5.3 % (1.7-9.3); Neutrophils % 73.1 % (37.0-80.0); Platelet Count 241 K/mm3 (142-424); Red Blood Count 3.31 M/mm3 (4.20-5.40); Red Cell Distribution Width 14.4 % (11.5-17.5); White Blood Count 5.5 K/mm3 (4.8-10.8)
[2021-12-27 06:52] LABS: Eosinophils % 3 % (0-3); Hypochromasia 1+; Lymphocytes % 18 % (10-50); Monocytes % 1 % (2-9); Neutrophils % 76 % (42-76); Platelet Estimate Normal; Total Cells Counted 100
--- NOTE | 2021-12-27 07:04 | CA_ITS ---
FINAL REPORT TECHNIQUE: Bilateral lower extremity venous duplex was performed with augmentation and compression. CLINICAL HISTORY: edema lower extremities. Recent right hip fracture with surgical repair in last few days. DM, CVA, HLD, COVID patient. Unable to move her left leg due to history of CVA. No scanning in the distal portion of left lower extremity was done. FINDINGS: Proper flow is seen throughout the deep venous systems bilaterally. There is no evidence of deep venous thrombosis. The left posterior tibial vein and left peroneal veins were not imaged. IMPRESSION: No evidence of deep venous thrombosis. Reviewed, Interpreted and Dictated by Cb Crews MD Transcribed by Celina Mendez Authenticated by Cb Crews MD on 12/27/2021 10:46:22 AM [facility]
--- NOTE | 2021-12-27 07:42 | HMH.ORTHPN ---
Subjective Date: 12/27/21 Time: 07:15 Principal diagnosis: s/p cephalomedullary nailing, right femur Interval history: Patient is a 61-year-old female admitted to the acute inpatient service following an uneventful right cephalomedullary nailing on 12/23/2021. Today she is postop day #4. This morning the patient is lying comfortably in bed. She reports pain in her right hip as to be expected at this stage but states that it is well controlled with pain medication. She reports that she is eating and drinking well and denies any episodes of nausea or vomiting. She denies chest pain, palpitations, fevers, chills, rigors, or distal tingling/numbness. She states that over the weekend she was able to sit at the side of the bed with the assistance of physical therapy, but has not ambulated yet. She denies any other symptoms or concerns at this time. PN: Obj Ex Vital signs: Temp Pulse Resp BP Pulse Ox 99.1 F 89 18 146/75 H 96 12/27/21 04:00 12/27/21 04:00 12/27/21 04:00 12/27/21 04:00 12/27/21 04:00 - Constitutional no acute distress, cooperative - Routine HEENT Exam Head: Present: normocephalic, atraumatic Eye: Present: EOMI, PERRL ENT: Present: mucous membranes moist - Routine Neck Exam Present: supple, full ROM, trachea midline. Absent: JVD, lymphadenopathy - Routine Respiratory Exam Absent: accessory muscle use, respiratory distress Comments: symmetric chest movement, able to speak in complete sentences - Routine Cardiovascular Exam Present: RRR Comments: normal peripheral pulses - Routine Abdominal Exam Present: soft. Absent: tenderness - Routine Extremities Exam Present: pulses intact, normal capillary refill. Absent: calf tenderness Comments: Upon examination the lower extremities: The limb lengths are equal. Upon examination of the right hip, dressings present are clean, dry, and intact. No evidence of drainage or bleeding noted. Out of the dressings, the surgical incisions appear clean and healthy. No induration, erythema, drainage, bleeding, or other signs of infection noted. Attempted movements of the right hip are somewhat painful as to be expected at this stage. Thigh and calf are soft nontender; Homans' sign is negative. No clinical evidence of DVT noted. Posterior tibial pulse 1+; capillary refill is brisk. Sensation to light touch is grossly intact throughout. Patient is actively mobilizing the knee, foot, ankle, and toes. - Routine Skin Exam Present: intact, warm, normal turgor. Absent: cyanosis, erythema, lesions, jaundice - Routine Neurological Exam Present: alert, oriented X3, CN II-XII intact, moving all extremities, normal tone. Absent: altered mental status - Routine Psychiatric Exam Present: normal affect, cooperative - Urinary Catheter Management Brar Cath placed during this visit: no Urethral indwelling: Yes Progress Note: A&P (1) Closed right hip fracture Status: Acute (2) Diabetes Status: Chronic (3) History of CVA (cerebrovascular accident) Status: Chronic (4) Hyperlipidemia Status: Chronic (5) Injury of knee, right Status: Acute (6) COVID Status: Acute (7) E. coli UTI (urinary tract infection) Status: Acute Assessment and Plan for All Diagnoses:: I have discussed the clinical findings and progress with the patient. Overall she is doing well from an orthopedic standpoint this morning and can be discharged when medically appropriate. I have changed her surgical dressings and the surgical incisions appear clean and healthy. No erythema, induration, drainage, bleeding, or other signs of infection noted. Sterile bordered gauze was reapplied over the incisions. Continue PT/OT; patient may ambulate weightbearing as tolerated on her right leg with the use of a walker. Continue DVT prophylaxis for 6 weeks postoperatively. Continue rest, ice, elevation, activity modification, and pain medication as needed. All questions
--- NOTE | 2021-12-27 07:59 | PC.NURSE ---
Pt refused CT scan this morning. Notified Dr. Kelley in person.
--- NOTE | 2021-12-27 11:39 | DIET.NUTRFU ---
Patient continues to receive PT/OT therapy for recent hip sx. She is in isolation for [facility]. She is tolerating diabetic diet with good meal intake >50% at all meals. Na 135L and glucose elevated 159H and has been higher than 200 in past couple days. CRP elevated at 145H. Patient will return to [place] when ready for discharge, no dietary concerns at this time.
--- NOTE | 2021-12-27 11:43 | HMH.ACPN2 ---
Internal Medicine - PN: Subj *Date: 12/27/21 *Time: 09:00 Interval history: discussed with pt the importance to have ct chest and she declined.she states I am not having any issues, my breathing is because I smoked for 53 yrs. pt states the episode was not unsual for her Exam Vital signs and Labs for Last 24 Hours: Temp Pulse Resp BP Pulse Ox 98.2 F 84 16 110/68 91 L 12/27/21 11:29 12/27/21 11:29 12/27/21 11:29 12/27/21 11:12/27/21 11:29 Laboratory Results - last 24 hr 12/26/21 16:44: POC Glucose 221 H 12/27/21 05:27: POC Glucose 157 H 12/27/21 05:59: WBC 5.5, RBC 3.31 L, Hgb 9.9 L, Hct 31.0 L, MCV 93.4, MCH 29.8, MCHC 31.9, RDW 14.4, Plt Count 241, MPV 8.4, Neut % (Auto) 73.1, Lymph % (Auto) 15.7, [place] % (Auto) 5.3, Eos % (Auto) 5.4, Baso % (Auto) 0.6, Neut # (Auto) 4.0, Lymph # (Auto) 0.9, [place] # (Auto) 0.3, Eos # (Auto) 0.3, Baso # (Auto) 0.0, Total Counted 100, Neutrophils % (Manual) 76, Band Neutrophils % 2.0, Lymphocytes % (Manual) 18, Monocytes % (Manual) 1 L, Eosinophils % (Manual) 3, Platelet Estimate Normal, Hypochromasia 1+ 12/27/21 05:59: Sodium 135 L, Potassium 3.9, Chloride 103, Carbon Dioxide 27, Anion Gap 8.9, BUN 13, Creatinine 0.50 L, Estimated Creat Clear 69, Estimated GFR 125, Est GFR ( Amer) 152, Glucose 159 H, Calcium 8.2 L, Total Bilirubin 0.6, AST 21, ALT 16, Alkaline Phosphatase 80, Total Protein 5.9 L, Albumin 3.2 L, Globulin 2.7, Albumin/Globulin Ratio 1.2 I & O for Last 24 hours: Intake & Output 12/24/21 12/25/21 12/26/2121/22 11:59 11:59 11:59 11:59 Intake Total 975 / 975 1963 / 1963 1620 / 1620 Output Total 1500 / 1500 1102 / 1102 3000 / 3000 4600 / 4600 Balance -525 / -525 862 / 862 -1000 / -1000 -2980 / -2980 Weight 166 lb 12.8 oz 167 lb 3 oz 167 lb 9.6 oz 163 lb 6.4 oz Microbiology Reports for the Last 24 Hours: Microbiology 12/23/21 14:45 Urine,Catheterized Urine Culture - Final Escherichia coli - Constitutional no acute distress - *Routine HEENT Exam Head: Present: normocephalic Eye: Present: PERRL ENT: Present: mucous membranes moist - *Routine Neck Exam Present: supple. Absent: lymphadenopathy - *Routine Respiratory Exam Present: wheezes - *Routine Cardiovascular Exam Present: RRR - *Routine Abdominal Exam Present: soft, normoactive bowel sounds. Absent: tenderness - *Routine Extremities Exam Absent: cyanosis, clubbing, edema Comments: dressing in place - *Routine Skin Exam Present: warm. Absent: rash Comments: dressing c/d/i - *Routine Neurological Exam Present: alert, oriented X3 Assessment and Plan (1) Closed right hip fracture Status: Acute Qualifiers: Encounter type: initial encounter Qualified Code(s): S72.001A - Fracture of unspecified part of neck of right femur, initial encounter for closed fracture Category: Medical Code(s): S72.001A - Fracture of unspecified part of neck of right femur, initial encounter for closed fracture (2) Diabetes Status: Chronic Category: Medical Code(s): E11.9 - Type 2 diabetes mellitus without complications (3) History of CVA (cerebrovascular accident) Status: Chronic Category: Medical Code(s): Z86.73 - Personal history of transient ischemic attack (TIA), and cerebral infarction without residual deficits (4) Hyperlipidemia Status: Chronic Category: Medical Code(s): E78.5 - Hyperlipidemia, unspecified (5) Injury of knee, right Status: Acute Category: Medical Code(s): S89.91XA - Unspecified injury of right lower leg, initial encounter (6) COVID Status: Acute Category: Medical Code(s): U07.1 - COVID-19 (7) E. coli UTI (urinary tract infection) Status: Acute Category: Medical Code(s): N39.0 - Urinary tract infection, site not specified; B96.20 - Unspecified Escherichia coli [E. coli] as the cause of diseases classified elsewhere - Assessment and plan all Dx Assessment an
--- NOTE | 2021-12-27 11:47 | HMH.PULMPN ---
Internal Medicine - PN: Subj *Date: 12/27/21 *Time: 11:48 Interval history: No acute respiratory vents over the weekend. Patient continued to remain on room air. Exam - Constitutional Constitutional:: Present: no acute distress, comfortable - HENMT Exam HENMT: Present: normocephalic, atraumatic - Eye Exam Eyes:: Present: normal appearance both eyes and related structures - Neck Exam Neck:: Present: normal visual inspection - Respiratory Exam Respiratory:: Present: able to speak in complete sentences, no respiratory distress. Absent: wheezing - Cardiovascular Exam Cardiac:: Present: S1, S2 - GI Exam GI:: Present: soft - Skin Exam Skin: Present: warm, no rash - Neurological Exam Neurological: Present: alert, awake, normal cognition - Extremities Exam Extremities: Present: no cyanosis, no clubbing, no edema Assessment and Plan (1) Closed right hip fracture Status: Acute Qualifiers: Encounter type: initial encounter Qualified Code(s): S72.001A - Fracture of unspecified part of neck of right femur, initial encounter for closed fracture Category: Medical Code(s): S72.001A - Fracture of unspecified part of neck of right femur, initial encounter for closed fracture (2) Diabetes Status: Chronic Category: Medical Code(s): E11.9 - Type 2 diabetes mellitus without complications (3) History of CVA (cerebrovascular accident) Status: Chronic Category: Medical Code(s): Z86.73 - Personal history of transient ischemic attack (TIA), and cerebral infarction without residual deficits (4) Hyperlipidemia Status: Chronic Category: Medical Code(s): E78.5 - Hyperlipidemia, unspecified (5) Injury of knee, right Status: Acute Category: Medical Code(s): S89.91XA - Unspecified injury of right lower leg, initial encounter (6) COVID Status: Acute Category: Medical Code(s): U07.1 - COVID-19 (7) E. coli UTI (urinary tract infection) Status: Acute Category: Medical Code(s): N39.0 - Urinary tract infection, site not specified; B96.20 - Unspecified Escherichia coli [E. coli] as the cause of diseases classified elsewhere - Assessment and plan all Dx Assessment and Plan for all problems:: #Acute hypoxic respiratory failure: #Community-acquired pneumonia: #COVID-19 pneumonia: 61-year-old female current smoker greater than [id number] smoking. He carries a prior diagnosis COPD however never had any pulmonary function testing performed. He prior to this admission using albuterol on a as needed basis whenever he feels like he is wheezing. Not on any oxygen but admits baseline respiratory symptoms worsen for the last week. She admits to being diagnosed with COVID-19 pneumonia a month ago however she also admits negative test prior to her current positive test on this admission. I do not have access to the prior testing at this point of time. We will initiate treatment for active COVID-19 pneumonia pending record review Auscultation onadmission revealed bilateral diffuse wheezing with lower lobe rhonchi. and saturating 86% on room air. Blood gas on room air showed hypoxia with a PO2 of 50.8. ERP significant elevated 145.2. CTA performed did not show any groundglass opacities, showed bilateral lower lobe atelectasis and airspace disease, right greater than left. No Evidence of pulmonary embolism noted. Given significant hypoxia and wheezing and negative PE patient was treated for COPD exacerbation with nebulization therapies that significantly improved his symptoms and was initiated on Trelegy inhaler. Urine culture positive for E. coli sensitive to ceftriaxone and Bactrim, resistant to levofloxacin. Interval update: Day 5 remdesivir, will discontinue today. Continue to remain on room air. Continues trilogy along with albuterol as needed basis. Denies any respiratory complaints. Plan: -Continue Trelegy inhaler along with albuterol every 6 hours as needed. -Continue ceftriaxone and azith
[2021-12-27 12:01] LABS: POC Glucose,Bedside 203 (70-110)
[2021-12-27 22:35] LABS: POC Glucose,Bedside 184 (70-110)
[2021-12-28] VITALS (7 sets, daily range): BP systolic 104–117; BP diastolic 66–76; PULSE 80–105; RESP 16–18; TEMP 36.6–36.9; O2SAT 90–95; BMI 24.7
[2021-12-28 06:31] LABS: POC Glucose,Bedside 151 (70-110)
--- NOTE | 2021-12-28 06:50 | PC.NURSE ---
No acute changes. Pt has rested well this shift. C/O discomfort x2. Medicated per dec. DSGs to (R) hip intact. Purewick in place. Urine output was good overnight. Pt had large BM. VSS. No other concerns. Will continue to monitor.
[2021-12-28 06:54] LABS: Basophils % 0.5 % (0.1-2.0); Eosinophils # 0.3 K/mm3 (0.0-0.4); Eosinophils % 4.5 % (0.1-12.0); Hematocrit 30.7 % (37.0-47.0); Hemoglobin 10.1 g/dL (12.2-16.2); Lymphocytes # 1.2 K/mm3 (0.7-4.5); Lymphocytes % 15.9 % (10-50); Mean Corpuscular HGB Conc 32.9 g/dL (31.8-35.4); Mean Corpuscular Hemoglobin 30.1 pg (27.0-31.2); Mean Corpuscular Volume 91.6 fl (81-99); Mean Platelet Volume 8.3 fl (7.4-10.4); Monocytes # 0.4 K/mm3 (0.1-1.0); Monocytes % 5.1 % (1.7-9.3); Neutrophils # 5.4 K/mm3 (1.8-7.8); Platelet Count 303 K/mm3 (142-424); Red Blood Count 3.35 M/mm3 (4.20-5.40); Red Cell Distribution Width 14.4 % (11.5-17.5); White Blood Count 7.3 K/mm3 (4.8-10.8)
[2021-12-28 07:02] LABS: Alanine Aminotransferase 15 U/L (12-78); Albumin Level 3.2 g/dl (3.5-5.0); Albumin/Globulin Ratio 1.2 (1.1-1.8); Alkaline Phosphatase 82 U/L (38-126); Anion Gap 8.9 mEq/L (5-15); Aspartate Amino Transferase 20 U/L (14-36); Bilirubin,Total 0.6 mg/dl (0.2-1.3); Blood Urea Nitrogen 16 mg/dl (7-17); Calcium 8.2 mg/dl (8.4-10.2); Carbon Dioxide 26 mmol/L (22.0-30.0); Chloride 104 mmol/L (98-107); Creatinine Clearance Estimated 69 mL/min (50-200); Estimated Glomerular Filt Rate 125 ml/min (>60); GFR (African American) 152 ML/MIN (>60); Globulin 2.7 g/dL (1.3-3.2); Glucose 162 mg/dl (74-100); Potassium 3.9 mmoL/L (3.5-5.1); Sodium 135 mmol/L (136-145); Total Protein,Serum 5.9 g/dl (6.3-8.2)
--- NOTE | 2021-12-28 08:50 | HMH.DCSUM ---
General - General Admission date:: 12/22/21 Discharge date: 12/28/21 HPI HPI: 61-year-old white female who presented to the emergency department after a fall at home. The patient states that she was coming out of her bathroom and caught the toes of her left foot on the door and she jumped back and fell. The patient injured her right hip and her right hand during this fall. The patient reports having a prior fracture of the right hand as well as significant arthritis with deformity. The patient called EMS due to the pain in her right hip after the fall. She presented to the emergency department and does have a fracture of the right hip. She is scheduled to undergo surgical intervention tomorrow on her hip. She currently denies any chest pain or pressure. She denies any shortness of breath or edema. She denies any fevers, chills, nausea, vomiting, diarrhea, PND or orthopnea. She denies any history of coronary disease or AL. She does report a history of a stroke. She is a current tobacco user and smokes 3 to 4 packs/day.-per cardiology Hospital Course Hospital Course: 61-year-old white female who presented to the emergency department after a fall at home. The patient states that she was coming out of her bathroom and caught the toes of her left foot on the door and she jumped back and fell. The patient injured her right hip and her right hand during this fall. The patient reports having a prior fracture of the right hand as well as significant arthritis with deformity. The patient called EMS due to the pain in her right hip after the fall. She presented to the emergency department and does have a fracture of the right hip. She is scheduled to undergo surgical intervention tomorrow on her hip. She currently denies any chest pain or pressure. She denies any shortness of breath or edema. She denies any fevers, chills, nausea, vomiting, diarrhea, PND or orthopnea. She denies any history of coronary disease or AL. She does report a history of a stroke. She is a current tobacco user and smokes 3 to 4 packs/day.-per cardiology 12/22/21 R Hip XR: FINDINGS: 2 views of the right hip with an AP pelvis were obtained. There is a comminuted intertrochanteric proximal right femur fracture. 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 There are mild degenerative changes of the right hip. There are postoperative changes of the left femur. There are no soft tissue abnormalities. IMPRESSION: Comminuted intertrochanteric proximal right femur fracture. Reviewed, Interpreted and Dictated by Bobby Parsosn III, MD 12/23/21 Chest CTA: FINDINGS: Thin section axial CT images of the chest were obtained with contrast. 3D reformatted images were also obtained. This study was performed with techniques to keep radiation doses as low as reasonably achievable (ALARA). Individualized dose reduction techniques using automated exposure control or adjustment of mA and/or kV according to the patient's size were employed. The smaller lower lobe pulmonary arterial branches are suboptimally visualized but there is no evidence of pulmonary embolism. There is no evidence of thoracic aortic aneurysm or dissection. There is no evidence of mediastinal or hilar mass or adenopathy. There is no evidence of pulmonary mass or nodule. There is bilateral lower lobe atelectasis or pneumonia. Limited images of the upper abdomen demonstrate stones or sludge in the gallbladder. IMPRESSION: No evidence of pulmonary embolism. Bilateral lower lobe atelectasis or pneumonia. Stones or sludge in the gallbladder. Consider gallbladder ultrasound. Reviewed, Interpreted and Dictated by Bobby Parsons III, MD 12/27/21 BLE Doppler: FINDINGS: Proper flow is seen throughout the deep venous systems bilaterally. There is no evidence of deep venous thrombosis. The left posterior tibial vein and left peroneal veins were not imaged. IMPRESSION: No evidence of deep venous throm
--- NOTE | 2021-12-28 12:59 | PC.NURSE ---
1238-detailed report called to Carlos,RN -nurse who will be assuming care of pt at [facility] upon arrival
[2021-12-28 13:22] LABS: POC Glucose,Bedside 198 (70-110)
--- NOTE | 2021-12-29 14:37 | CARE MANAGER ---
Spoke with nurse at [facility] ([facility]) states that this patient is doing well and has no needs at this time.
== END 2021-12-28 12:42 | DRG 480 ==
LOC: ER 10:00 → 2ND 10:03
PROVIDERS: Internal Medicine Pulmonary Disease; Nurse Practitioner Family; Orthopaedic Surgery; Admitting Provider Emergency Medicine; Emergency Provider Emergency Medicine; PCP Emergency Medicine; Visit Provider Emergency Medicine
PROC: 0QS636Z Reposition Right Upper Femur with Intramedullary Internal Fixation Device, Percutaneous Approach (ICD-10-PCS; principal; 2021-12-23 13:30)
DX: S72.141A Displaced intertrochanteric fracture of right femur, initial encounter for closed fracture (principal); J96.01 Acute respiratory failure with hypoxia; J12.82 Pneumonia due to coronavirus disease 2019; U07.1 COVID-19; J18.9 Pneumonia, unspecified organism; N39.0 Urinary tract infection, site not specified; Z79.4 Long term (current) use of insulin; F17.210 Nicotine dependence, cigarettes, uncomplicated; E11.9 Type 2 diabetes mellitus without complications; E78.5 Hyperlipidemia, unspecified; Z86.73 Personal history of transient ischemic attack (TIA), and cerebral infarction without residual deficits; W01.0XXA Fall on same level from slipping, tripping and stumbling without subsequent striking against object, initial encounter; B96.20 Unspecified Escherichia coli [E. coli] as the cause of diseases classified elsewhere; S89.91XA Unspecified injury of right lower leg, initial encounter; S62.306A Unspecified fracture of fifth metacarpal bone, right hand, initial encounter for closed fracture
CPT/HCPCS: 27245; 36415; 70450; 71045; 71275; 72125; 73130; 73502; 73562; 76000; 80053; 81001; 82803; 82962; 85007; 85014; 85018; 85025; 85048; 85049; 86140; 86850; 87086; 87088; 87186; 93005; 93306; 93970; 94640; 96374; 96375; 96376; 97110; 97166; 97530; 99285; C1713; C1769; C9803; J0456; J0696; J2405; Q9967; U0003; U0005

== ENCOUNTER → 2022-01-11 10:02 | Outpatient (CLI) | payer MEDICARE, MEDICAID, SELFPAY ==
--- NOTE | 2022-01-11 10:07 | XR_ITS ---
FINAL REPORT CLINICAL HISTORY: rt hip fx FINDINGS: RIGHT HIP Two views of the right hip including an AP pelvis demonstrate a fracture of the proximal right femur. There are moderate degenerative changes in both hips. There are postoperative changes in the proximal femur bilaterally. The visualized bony structures are well aligned. There are vascular calcifications. IMPRESSION: Fracture of proximal right femur. Postoperative and degenerative changes as described. Reviewed, Interpreted and Dictated by Bobby Parsons III, MD Transcribed by Celina Mendez Authenticated by Bobby Parsons III, MD on 01/11/2022 11:41:11 AM [facility]
== END ==
PROVIDERS: PCP Emergency Medicine; Visit Provider Physician Assistant Surgical
DX: S72.001A Fracture of unspecified part of neck of right femur, initial encounter for closed fracture (principal)
CPT/HCPCS: 73502

== ENCOUNTER → 2022-02-08 10:08 | Outpatient (CLI) | payer MEDICARE, MEDICAID, SELFPAY ==
--- NOTE | 2022-02-08 10:11 | XR_ITS ---
FINAL REPORT CLINICAL HISTORY: rt gamma nail post op COMPARISON: January 11, 2022 FINDINGS: 2 views of the right hip with an AP pelvis were obtained. There is no acute fracture or dislocation. There is postoperative change in both proximal femurs. Moderate degenerative changes are present. Bony alignment is stable. IMPRESSION: Postoperative changes as above, stable alignment. Reviewed, Interpreted and Dictated by Bobby Parsons III, MD Transcribed by Clint Cordero Authenticated by Bobby Parsons III, MD on 02/08/2022 11:24:28 AM [facility]
== END ==
PROVIDERS: PCP Emergency Medicine; Visit Provider Physician Assistant Surgical
DX: S72.001A Fracture of unspecified part of neck of right femur, initial encounter for closed fracture (principal)
CPT/HCPCS: 73502

== ENCOUNTER → 2022-03-22 10:19 | Outpatient (CLI) | payer MEDICARE, MEDICAID, SELFPAY ==
--- NOTE | 2022-03-22 10:24 | XR_ITS ---
FINAL REPORT CLINICAL HISTORY: s/p rt gamma nail on 12/23/2021 F/U COMPARISON: 02/08/2022 FINDINGS: RIGHT HIP Three views were obtained. There is a chronic fracture of the proximal femur with postoperative changes of ORIF. The bony alignment is stable. Mild degenerative changes are stable. There also postoperative changes of the left hip. IMPRESSION: Stable appearance of the head. Reviewed, Interpreted and Dictated by Bobby Parsons III, MD Transcribed by Shelly Aldridge Authenticated and [facility]
== END ==
PROVIDERS: PCP Physician Assistant Surgical; Visit Provider Physician Assistant Surgical
DX: S72.001A Fracture of unspecified part of neck of right femur, initial encounter for closed fracture (principal)
CPT/HCPCS: 73502

== ENCOUNTER → 2022-04-15 14:32 | Outpatient (CLI) | payer MEDICARE, MEDICAID, SELFPAY ==
--- NOTE | 2022-04-15 14:35 | CT_ITS ---
FINAL REPORT CLINICAL HISTORY: lung cancer screening, SMOKER COMPARISON: CTA chest December 23, 2021 FINDINGS: Low-Dose Chest CT CTDI vol (mGy): 2.90 DLP (mGy-cm): 93.77 Axial images were obtained from the lung apex to the mid abdomen by computed tomography. Low-dose protocol was utilized. FINDINGS: CHEST: There is no axillary adenopathy. There is no hilar or mediastinal adenopathy. There is severe coronary artery calcification. The heart is proper size. There is no pericardial or pleural effusion. Limited images of the upper abdomen are unremarkable. Lung window images demonstrate a 4 mm nodule in the lateral right upper lobe on image 27. There is a stable 5 mm nodule in the anterior right upper lobe. There is a 6 mm nodule in the lateral right lower lobe that was not definitely seen on the prior exam. There is mild bibasilar atelectasis or scarring. IMPRESSION: S modifier: Severe coronary artery calcification. Lung RADS category 3S. Recommend 6 month follow-up low-dose chest CT. Reviewed, Interpreted and Dictated by Bobby Parsons III, MD Transcribed by Clint Cordero Authenticated and [facility]
--- NOTE | 2022-04-15 15:59 | PC.NURSE ---
PFT completed without incident. Pt wheelchair bound and unable to get in the cordova did not complete Pleth, FRC (N2) completed. Pt given Albuterol 0.083% via HHN, per protocol, Pt tolerated tx well.
== END ==
PROVIDERS: PCP Physician Assistant Surgical; Visit Provider Internal Medicine Pulmonary Disease
DX: Z87.891 Personal history of nicotine dependence (principal); Z12.2 Encounter for screening for malignant neoplasm of respiratory organs; R06.09 Other forms of dyspnea
CPT/HCPCS: 71271; 94060; 94726; 94729

== ENCOUNTER → 2022-06-14 10:56 | Outpatient (CLI) | payer MEDICARE, MEDICAID, SELFPAY ==
--- NOTE | 2022-06-14 11:04 | XR_ITS ---
FINAL REPORT CLINICAL HISTORY: right hip gamma nail COMPARISON: 03/22/2022 FINDINGS: Right hip Five views were obtained. There are postoperative changes in the bilateral proximal femurs. There is a chronic fracture of the left inferior pubic ramus. There are mild degenerative changes of both hips. Overall appearance is stable since the previous. IMPRESSION: Stable appearance of the hips. Reviewed, Interpreted and Dictated by Bobby Parsons III, MD Transcribed by Shelly Aldridge Authenticated and [facility]
--- NOTE | 2022-06-14 11:29 | XR_ITS ---
FINAL REPORT CLINICAL HISTORY: pain FINDINGS: Left tibia fibula Two views were obtained. There are mild degenerative changes of the knee and ankle. Small knee effusion is identified. There is mild irregularity at the lateral aspect of the lateral tibial plateau uncertain significance, fracture is not excluded. IMPRESSION: Irregularity of the lateral tibial plateau, fracture is not excluded. If indicated, CT or MRI may be helpful. Reviewed, Interpreted and Dictated by Bobby Parsons III, MD Transcribed by Shelly Aldridge Authenticated and [facility]
== END ==
PROVIDERS: PCP Emergency Medicine; Visit Provider Physician Assistant Surgical
DX: S72.001A Fracture of unspecified part of neck of right femur, initial encounter for closed fracture (principal); M79.605 Pain in left leg
CPT/HCPCS: 73502; 73590

== ENCOUNTER → 2022-09-06 14:43 | Outpatient (CLI) | payer MEDICARE, MEDICAID, SELFPAY ==
--- NOTE | 2022-09-06 14:52 | XR_ITS ---
FINAL REPORT CLINICAL HISTORY: leg pain Injured during wheelchair transfer. Patient cannot stand or extend knee for better views. Best films possible due to poor patient condition. FINDINGS: LEFT KNEE: 4 views of the left knee obtained. Severe osteopenia. No definite fracture. Small joint effusion. IMPRESSION: No definite fracture. If symptoms persist CT may be considered. Reviewed, Interpreted and Dictated by Zainab Birch MD Transcribed by Clint Cordero Authenticated and . [facility]
--- NOTE | 2022-09-06 14:52 | XR_ITS ---
FINAL REPORT CLINICAL HISTORY: leg pain Left lower leg injured during wheelchair transfer. Patient cannot cooperate for proper positioning due to injury. Best films possible due to poor patient condition. FINDINGS: Osteopenia. No acute fracture or dislocation. The joint spaces are intact. There is no soft tissue abnormality. IMPRESSION: No acute fracture. Reviewed, Interpreted and Dictated by Zainab Birch MD Transcribed by Clint Cordero Authenticated and [facility]
== END ==
PROVIDERS: PCP Emergency Medicine; Visit Provider Orthopaedic Surgery
DX: M79.605 Pain in left leg (principal)
CPT/HCPCS: 73564; 73590

== ENCOUNTER → 2022-09-13 10:16 | Outpatient (CLI) | payer MEDICARE, MEDICAID, SELFPAY ==
--- NOTE | 2022-09-13 10:22 | CT_ITS ---
FINAL REPORT TECHNIQUE: Thin section axial CT images of the left knee with coronal and sagittal reformats were performed. This study was performed with techniques to keep radiation doses as low as reasonably achievable (ALARA). Individualized dose reduction techniques using automated exposure control or adjustment of mA and/or kV according to the patient''s size were employed. CLINICAL HISTORY: knee pain FINDINGS: CT LEFT KNEE W/O CONTRAST Images were obtained with patient's knee flexed which makes evaluation more difficult. There is diffuse osteopenia. There are mild degenerative changes. There is a mildly impacted fracture of the lateral tibial plateau best visualized on sagittal images 30 4-40. There is up to 2 mm of impaction. This fracture is favored to be subacute. There is a questionable nondisplaced fracture of the anterior aspect of the medial tibial plateau. There is a small joint effusion. There are mild vascular calcifications. There is diffuse muscle atrophy. There are no masses or fluid collections. IMPRESSION: Mildly impacted fracture of the lateral tibial plateau, favored to be subacute. Questionable nondisplaced fracture of the anterior aspect of the medial tibial plateau. Reviewed, Interpreted and Dictated by Bobby Parsons III, MD Transcribed by Celina Mnedez Authenticated and [facility]
== END ==
PROVIDERS: PCP Emergency Medicine; Visit Provider Orthopaedic Surgery
DX: M79.605 Pain in left leg (principal); M25.562 Pain in left knee
CPT/HCPCS: 73700

== ENCOUNTER → 2022-10-17 14:48 | Outpatient (CLI) | payer MEDICARE, MEDICAID, SELFPAY ==
--- NOTE | 2022-10-17 14:52 | CT_ITS ---
FINAL REPORT TECHNIQUE: Axial imaging of the chest was obtained without contrast. Reformatted images were also obtained and reviewed.This study was performed with techniques to keep radiation doses as low as reasonably achievable, (ALARA). Individualized dose reduction technique using automated exposure control or adjustment of mA and/or kV according to the patient's size were employed. CLINICAL HISTORY: 6 month F/U. Patient has been smoking for 54 years, half a pack a day. COMPARISON: 04/15/2022 FINDINGS: There is no axillary adenopathy. There is no hilar or mediastinal mass or adenopathy. Heart size is normal. There is no pericardial or pleural effusion. Limited images of the upper abdomen are unremarkable. There are several calcified granulomas and mild pulmonary scarring. Again seen is a 4 mm right upper lobe nodule, anterior right upper lobe nodule measuring 5 mm and 6 mm lateral right lower lobe nodule, all of which are stable. No new mass or nodule is seen. There is severe coronary artery calcifications. IMPRESSION: Stable right lung nodules. Recommend 12 month follow-up. Reviewed, Interpreted and Dictated by Bobby Parsons III, MD Transcribed by Haven Riley Authenticated and [facility]
== END ==
PROVIDERS: PCP Emergency Medicine; Visit Provider Internal Medicine Pulmonary Disease
DX: R91.8 Other nonspecific abnormal finding of lung field (principal)
CPT/HCPCS: 71250

== ENCOUNTER → 2022-10-18 09:35 | Outpatient (CLI) | payer MEDICARE, MEDICAID, SELFPAY | PROVIDERS: PCP Emergency Medicine; Visit Provider Orthopaedic Surgery | DX: S82.122A Displaced fracture of lateral condyle of left tibia, initial encounter for closed fracture (principal) ==

== ENCOUNTER → 2022-10-19 12:46 | Outpatient (CLI) | payer MEDICARE, MEDICAID, SELFPAY | PROVIDERS: PCP Emergency Medicine; Visit Provider Emergency Medicine | DX: S91.002A Unspecified open wound, left ankle, initial encounter (principal); B96.5 Pseudomonas (aeruginosa) (mallei) (pseudomallei) as the cause of diseases classified elsewhere; B95.1 Streptococcus, group B, as the cause of diseases classified elsewhere | CPT/HCPCS: 87070; 87077; 87186; 87205 ==

== ENCOUNTER → 2022-11-23 13:14 | Outpatient (CLI) | payer MEDICARE, MEDICAID, SELFPAY ==
--- NOTE | 2022-11-23 13:14 | CT_ITS ---
FINAL REPORT TECHNIQUE: Axial images of the left lower extremity from the distal femur to the ankle were obtained by computed tomography. Sagittal and coronal reformatted images were obtained and reviewed. This study was performed with techniques to keep radiation doses as low as reasonably achievable (ALARA). Individualized dose reduction techniques using automated exposure control or adjustment of mA and/or kV according to the patient's size were employed. CLINICAL HISTORY: knee injury COMPARISON: 09/13/2022 FINDINGS: Patient positioning and osteopenia limits exam. There has been interval healing of the previously seen lateral tibial plateau fracture. No convincing acute osseous abnormality is identified. Note is made of degenerative disease. There is a large joint effusion at the knee, similar to previous. The remaining soft tissues are without acute abnormality. IMPRESSION: Limited exam. Interval healing of the previously seen proximal tibia fracture. Persistent joint effusion. Reviewed, Interpreted and Dictated by Angelika Pennington MD Transcribed by Shelly Aldridge Authenticated and [facility]
== END ==
PROVIDERS: PCP Emergency Medicine; Visit Provider Orthopaedic Surgery
DX: S82.122A Displaced fracture of lateral condyle of left tibia, initial encounter for closed fracture (principal)
CPT/HCPCS: 73700

== ENCOUNTER 2023-04-11 03:08 | Emergency (ER) | payer MEDICARE, MEDICAID, SELFPAY ==
[2023-04-11] VITALS (7 sets, daily range): BP systolic 104–135; BP diastolic 66–82; PULSE 106–122; RESP 18–20; TEMP 36.8; O2SAT 95–98; BMI 28.7; BMI 24.3
--- NOTE | 2023-04-11 02:47 | PC.NURSE ---
received report from smitanurse at [facility]
--- NOTE | 2023-04-11 03:31 | XR_ITS ---
PROCEDURE INFORMATION: Exam: XR Right Ankle Exam date and time: 04/11/2023 5:07 AM Age: 62 years old Clinical indication: Injury or trauma; Fall; Blunt trauma; Ankle; Right TECHNIQUE: Imaging protocol: Radiologic exam of the right ankle. Views: 3 or more views. COMPARISON: CA VENOUS DOPPLER LE BI 12/27/2021 8:31 AM FINDINGS: Bones/joints: Oblique fractures of the distal tibia and fibula. Diffuse osteopenia. Soft tissues: Normal. IMPRESSION: Distal tibia and fibular fractures.
--- NOTE | 2023-04-11 03:31 | CT_ITS ---
PROCEDURE INFORMATION: Exam: CT Abdomen And Pelvis With Contrast Exam date and time: 04/11/2023 5:41 AM Age: 62 years old Clinical indication: Other: Hematemesis; Additional info: Emesis with scant amout of aris blood present TECHNIQUE: Imaging protocol: Computed tomography of the abdomen and pelvis with contrast. Radiation optimization: All CT scans at this facility use at least one of these dose optimization techniques: automated exposure control; mA and/or kV adjustment per patient size (includes targeted exams where dose is matched to clinical indication); or iterative reconstruction. Contrast material: ISOVUE; Contrast volume: 75 ml; Contrast route: IV; REPORTING DATA: Count of CT and Cardiac NM exams in prior 12 months: This patient has received 4 known CTs and 0 known cardiac nuclear medicine studies in the 12 months prior to the current study. COMPARISON: CT ABDOMEN PELVIS WO CON 08/12/2021 3:47 PM FINDINGS: Mediastinal space: There is mild thickening of the distal esophagus. Liver: Normal. No mass. Gallbladder and bile ducts: Normal. No calcified stones. No ductal dilation. Pancreas: Normal. No ductal dilation. Spleen: Normal. No splenomegaly. Adrenal glands: Normal. No mass. Kidneys and ureters: Normal. No hydronephrosis. Stomach and bowel: The rectum is distended with stool. Appendix: No evidence of appendicitis. Intraperitoneal space: Unremarkable. No free air. No significant fluid collection. Vasculature: There is probable occlusion of the left common iliac artery with reconstitution of the left external iliac artery. Lymph nodes: Unremarkable. No enlarged lymph nodes. Urinary bladder: Unremarkable as visualized. Reproductive: Unremarkable as visualized. Bones/joints: Prior ORIF bilateral femurs. Soft tissues: Unremarkable. IMPRESSION: 1. Mild thickening distal esophagus underlying esophagitis may be present, no obvious hemorrhage is seen. Consider upper endoscopy for further evaluation. 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
--- NOTE | 2023-04-11 03:31 | XR_ITS ---
PROCEDURE INFORMATION: Exam: XR Chest Exam date and time: 04/11/2023 5:07 AM Age: 62 years old Clinical indication: Cough; Additional info: Productive cough TECHNIQUE: Imaging protocol: Radiologic exam of the chest. Views: 1 view. COMPARISON: CT CHEST WO CON 10/17/2022 3:37 PM FINDINGS: Lungs: Left basilar atelectasis. Pleural spaces: Unremarkable. No pleural effusion. No pneumothorax. Heart/Mediastinum: Unremarkable. No cardiomegaly. Bones/joints: Unremarkable. IMPRESSION: Left basilar atelectasis. No definite infiltrates noted.
--- NOTE | 2023-04-11 03:31 | CT_ITS ---
PROCEDURE INFORMATION: Exam: CTA Chest With Contrast Exam date and time: 04/11/2023 5:41 AM Age: 62 years old Clinical indication: Other: Hematemesis; Additional info: Blood tinged emesis TECHNIQUE: Imaging protocol: Computed tomographic angiography of the chest with contrast. Exam focused on the arteries. 3D rendering (Not supervised by radiologist): MIP and/or 3D reconstructed images were created by the technologist. Radiation optimization: All CT scans at this facility use at least one of these dose optimization techniques: automated exposure control; mA and/or kV adjustment per patient size (includes targeted exams where dose is matched to clinical indication); or iterative reconstruction. Contrast material: ISOVUE; Contrast volume: 75 ml; Contrast route: INTRAVENOUS (IV); REPORTING DATA: Count of CT and Cardiac NM exams in prior 12 months: This patient has received 4 known CTs and 0 known cardiac nuclear medicine studies in the 12 months prior to the current study. COMPARISON: CT ANGIO CHEST PE PROTOCOL 12/23/2021 11:23 AM FINDINGS: Pulmonary arteries: Normal. No pulmonary emboli. Aorta: Unremarkable. No aortic aneurysm. No aortic dissection. Lungs: Interstitial changes are present bilaterally. Calcified granuloma in the right lung base measures 9 mm. Bibasilar atelectasis. Pleural spaces: Unremarkable. No pneumothorax. No pleural effusion. Heart: Unremarkable. No cardiomegaly. No pericardial effusion. Coronary arteries: Coronary atherosclerosis is present. Mediastinal space: Concentric thickening of the esophagus is noted. No distention is seen however. Lymph nodes: Unremarkable. No enlarged lymph nodes. Bones/joints: Unremarkable. No acute fracture. Soft tissues: Unremarkable. IMPRESSION: 1. Concentric thickening of the esophagus is noted, no evidence of perforation or obstruction. Underlying esophagitis suspected. Upper endoscopy may be helpful. 2. Coronary atherosclerosis. 3. Chronic interstitial changes with bibasilar atelectasis.
--- NOTE | 2023-04-11 03:48 | HMH.EDGIBL ---
Discharge Plan Disposition Patient Disposition: Xfer [facility] Prescriptions Prescriptions: New pantoprazole [Protonix] 40 mg tablet,delayed release (DR/EC) 40 mg PO DAILY 28 Days Qty: 28 0RF No Action duloxetine 30 mg capsule,delayed release(DR/EC) 30 mg PO DAILY metformin 500 mg tablet 500 mg PO DAILY acetaminophen 500 mg capsule 500 mg PO Q4HP PRN (Reason: PAIN) (DME) insulin syringe-needle U-100 1 mL 29 gauge x 1/2 syringe See Rx Instructions .ROUTE .MEDSUPPLY Qty: 10 Rx Instructions: As directed ipratropium-albuterol 0.5 mg-3 mg(2.5 mg base)/3 mL solution for nebulization 3 ml inhalation Q4-6H PRN (Reason: .) albuterol sulfate 90 mcg/actuation HFA aerosol inhaler 1 inh inhalation QID PRN (Reason: shortness of breath or wheezing) Qty: 8.5 12RF hydrocodone-acetaminophen 10-325 mg tablet 1 tab PO TID Qty: 90 0RF loperamide 2 mg capsule See Rx Instructions .ROUTE .COMPLEX Rx Instructions: GIVE 1 CAPSULE BY MOUTH EVERY 6 HOURS NEEDED - DIAGNOSIS: DIARRHEA gabapentin 800 mg tablet 800 mg PO TID cyclobenzaprine 10 MG tablet 10 mg PO TIDP PRN (Reason: Muscle Spasm) insulin glargine 100 UNIT/ML solution 14 unit SQ HS polyethylene glycol 3350 17 GM powder in packet 17 g PO DAILYP PRN (Reason: Constipation) ondansetron 4 MG tablet,disintegrating 4 mg PO TIDP PRN (Reason: Nausea) lactulose 10 GM/15 ML solution 30 ml PO DAILYP PRN (Reason: Constipation) Referrals Follow up/Referrals: Adonis Kelley MD [Primary Care Provider] - See instructions Ilan Gomez DO [Staff Physician] - See instructions Bobby Feliz MD [Staff Physician] - See instructions Clinical Impressions Clinical Impression: Esophagitis, Closed fracture of lower leg Instructions Patient Instructions: Shinbone Fracture, DI for Esophagitis Discharge ED Provider: Allie (ED)Adonis GI Bleed HPI General Chief complaint: Nausea/Vomiting/Diarrhea Stated complaint: rule out gi bleed Time Seen by Provider: 04/11/23 03:20 Mode of Arrival: EMS Source of Information: Patient, EMS and Medical Record Limitations: No Limitations Description of Symptoms (Recalled from ER Triage Doc. by RN): EMS reports the pt had a productive coughing spell with blood tinged sputum. pt states she has a chronic smokers cough. otherwise pt states she does not feel bad. [place] reports the pt had n/v chunky vomit with blood. pt does report falling out of her wheelchair yesterday and is having pain and edema in her R ankle/[place]. History of Present Illness HPI Narrative: pt reports choked on pill and vomiting small amt of blood - reports fell yesterday and has pain swelling rt lower leg MD complaint: blood streaked emesis Onset (ago): hour(s) Consistency: intermittent Severity: moderate Associated symptoms: denies other symptoms Treatments Prior to Arrival: none Related Data Home Medications Medication Instructions Recorded Confirmed acetaminophen 500 mg capsule 500 mg PO Q4HP PRN PAIN 09/14/21 04/11/23 cyclobenzaprine 10 mg tablet 10 mg PO TIDP PRN Muscle Spasm 12/22/21 04/11/23 insulin glargine 100 unit/mL 14 unit SQ HS Diabetes 12/22/21 04/11/23 subcutaneous solution lactulose 10 gram/15 mL (15 mL) 30 ml PO DAILYP PRN Constipation 12/22/21 04/11/23 oral solution ondansetron 4 mg disintegrating 4 mg PO TIDP PRN Nausea 12/22/21 04/11/23 tablet polyethylene glycol 3350 17 gram 17 g PO DAILYP PRN Constipation 12/22/21 04/11/23 oral powder packet insulin syringe-needle U-100 1 mL #10 ea 03/22/22 04/11/23 29 gauge x 1/2 duloxetine 30 mg capsule,delayed 30 mg PO DAILY . 06/14/22 04/11/23 release metformin 500 mg tablet 500 mg PO DAILY . 06/14/22 04/11/23 ipratropium 0.5 mg-albuterol 3 mg 3 ml inhalation Q4-6H PRN . 11/16/22 04/11/23 (2.5 mg base)/3 mL nebulization soln gabapentin 800 mg tablet 800 mg PO TID . 04/11/23 04/11/23 lachelle
--- NOTE | 2023-04-11 03:57 | XR_ITS ---
PROCEDURE INFORMATION: Exam: XR Pelvis Exam date and time: 04/11/2023 5:07 AM Age: 62 years old Clinical indication: Injury or trauma; Fall; Blunt trauma (contusions or hematomas); Does not apply; Pelvic region; Prior surgery; Surgery date: 6+ months; Surgery type: Bilat hips TECHNIQUE: Imaging protocol: Radiologic exam of the pelvis. Views: 1 or 2 view. COMPARISON: CR XR HIP RT 2-3V W/PELVIS 06/14/2022 11:30 AM FINDINGS: Bones/joints: Prior ORIF bilateral femur fractures. No significant interval change compared to prior exam. Soft tissues: Unremarkable. IMPRESSION: Prior ORIF bilateral femur fractures. No acute fracture noted.
--- NOTE | 2023-04-11 03:57 | XR_ITS ---
PROCEDURE INFORMATION: Exam: XR Right Tibia and Fibula Exam date and time: 04/11/2023 5:07 AM Age: 62 years old Clinical indication: Injury or trauma; Fall; Blunt trauma; Lower leg; Right TECHNIQUE: Imaging protocol: Radiologic exam of the right tibia and fibula. Views: 2 views. COMPARISON: CA VENOUS DOPPLER LE BI 12/27/2021 8:31 AM FINDINGS: Bones/joints: Oblique fractures of both the distal tibia and fibula are identified. The ankle mortise is maintained. Fracture of the proximal to mid fibula is also identified. Soft tissues: Normal. IMPRESSION: Multiple fibular fractures as well as a distal tibial fracture.
[2023-04-11 04:06] LABS: Basophils % 0.2 % (0.1-2.0); Eosinophils # 0.1 K/mm3 (0.0-0.4); Eosinophils % 1.1 % (0.1-12.0); Hematocrit 33.5 % (37.0-47.0); Hemoglobin 10.4 g/dL (12.2-16.2); Lymphocytes # 1.1 K/mm3 (0.7-4.5); Lymphocytes % 8.2 % (10-50); Mean Corpuscular HGB Conc 30.9 g/dL (31.8-35.4); Mean Corpuscular Hemoglobin 25.3 pg (27.0-31.2); Mean Corpuscular Volume 81.9 fl (81-99); Mean Platelet Volume 7.4 fl (7.4-10.4); Monocytes # 0.6 K/mm3 (0.1-1.0); Monocytes % 4.7 % (1.7-9.3); Neutrophils % 85.8 % (37.0-80.0); Platelet Count 424 K/mm3 (142-424); Red Blood Count 4.09 M/mm3 (4.20-5.40); Red Cell Distribution Width 14.9 % (11.5-17.5); White Blood Count 12.8 K/mm3 (4.8-10.8)
[2023-04-11 04:09] LABS: Chloride 99 mmol/L (98-107); Potassium 4.4 mmoL/L (3.5-5.1); Sodium 137 mmol/L (136-145)
[2023-04-11 04:10] LABS: MANUAL DIFFERENTIAL MANUAL DIFFERENTIAL (MANUAL DIFF)
[2023-04-11 04:11] LABS: Alanine Aminotransferase 21 U/L (12-78); Alkaline Phosphatase 156 U/L (38-126); Amylase 66 U/L (30-110); Anion Gap 12.4 mEq/L (5-15); Aspartate Amino Transferase 27 U/L (14-36); Bilirubin,Total 0.4 mg/dl (0.2-1.3); Blood Urea Nitrogen 16 mg/dl (7-17); Carbon Dioxide 30 mmol/L (22.0-30.0); Creatinine Clearance Estimated 67 mL/min (50-200); Estimated Glomerular Filt Rate 125 ml/min (>60); GFR (African American) 151 ML/MIN (>60)
[2023-04-11 04:12] LABS: Albumin Level 3.8 g/dl (3.5-5.0); Albumin/Globulin Ratio 1.1 (1.1-1.8); Calcium 8.8 mg/dl (8.4-10.2); Globulin 3.5 g/dL (1.3-3.2); Glucose 209 mg/dl (74-100); Lipase 188 U/L (23-300); Total Protein,Serum 7.3 g/dl (6.3-8.2)
[2023-04-11 04:29] LABS: Occult Blood,Stool Negative (Negative)
[2023-04-11 04:31] LABS: Lactic Acid 1.4 mmol/L (0.7-2.1)
[2023-04-11 04:55] LABS: Lymphocytes % 11 % (10-50); Neutrophils % 87 % (42-76); Total Cells Counted 100
[2023-04-11 04:56] LABS: Microcytosis 1+; Platelet Estimate Normal
--- NOTE | 2023-04-11 06:47 | PC.NURSE ---
Dr. Kelley speaking with Dr. Gomez
--- NOTE | 2023-04-11 07:12 | PC.NURSE ---
EMS called for transport
== END 2023-04-11 08:47 ==
PROVIDERS: Emergency Provider Emergency Medicine; PCP Emergency Medicine
DX: S82.231A Displaced oblique fracture of shaft of right tibia, initial encounter for closed fracture (principal); S82.431A Displaced oblique fracture of shaft of right fibula, initial encounter for closed fracture; K20.90 Esophagitis, unspecified without bleeding; E11.9 Type 2 diabetes mellitus without complications; E78.5 Hyperlipidemia, unspecified; F17.210 Nicotine dependence, cigarettes, uncomplicated; Z86.73 Personal history of transient ischemic attack (TIA), and cerebral infarction without residual deficits; W05.0XXA Fall from non-moving wheelchair, initial encounter
CPT/HCPCS: 29515; 71045; 71275; 72170; 73590; 73610; 74177; 80053; 82150; 82272; 83605; 83690; 85007; 85025; 87040; 96361; 96374; 96375; 99285; G0328; Q9967

== ENCOUNTER → 2023-04-14 09:07 | Outpatient (CLI) | payer MEDICARE, MEDICAID, SELFPAY | PROVIDERS: PCP Emergency Medicine; Visit Provider Emergency Medicine | DX: S91.002A Unspecified open wound, left ankle, initial encounter (principal); B95.7 Other staphylococcus as the cause of diseases classified elsewhere | CPT/HCPCS: 87070; 87077; 87186; 87205 ==

== ENCOUNTER → 2023-04-18 13:59 | Outpatient (CLI) | payer MEDICARE, MEDICAID, SELFPAY ==
--- NOTE | 2023-04-18 14:04 | XR_ITS ---
FINAL REPORT CLINICAL HISTORY: fracture FINDINGS: Right tibia fibula Two views were obtained. There is a comminuted fracture of the distal tibia. There is a probable butterfly fragment anteriorly. There is mild anterior angulation of the main distal fracture fragment. There is also an oblique fracture of the distal fibular metadiaphysis. A splint obscures some of the detail. Note is made of calcaneal spurs. IMPRESSION: Fractures as above. Reviewed, Interpreted and Dictated by Bobby Parsons III, MD Transcribed by Shelly Aldridge Authenticated and [facility]
== END ==
PROVIDERS: PCP Emergency Medicine; Visit Provider Orthopaedic Surgery
DX: S82.91XA Unspecified fracture of right lower leg, initial encounter for closed fracture (principal)
CPT/HCPCS: 73590

== ENCOUNTER 2023-04-18 15:57 | Outpatient (RCR) | payer MEDICARE, MEDICAID, SELFPAY | END 2023-04-18 16:50 | disposition home or self-care (01) | LOC: PT 15:57 | PROVIDERS: Visit Provider Orthopaedic Surgery | DX: S82.91XA Unspecified fracture of right lower leg, initial encounter for closed fracture (principal) | CPT/HCPCS: 97760 ==

== ENCOUNTER → 2023-05-16 14:23 | Outpatient (CLI) | payer MEDICARE, MEDICAID, SELFPAY ==
--- NOTE | 2023-05-16 14:27 | XR_ITS ---
FINAL REPORT CLINICAL HISTORY: right tib fib fx, fall 1 month ago, followup COMPARISON: 08/28/2023 FINDINGS: RIGHT TIBIA-FIBULA. Splint has been removed. There are comminuted fractures of the distal tibia and fibula. There is worsening medial and anterior angulation of the distal fracture fragments. There is callus formation at the fracture site. Again seen is a nondisplaced fracture of the proximal fibula diaphysis. IMPRESSION: Tibia and fibula fractures with interval worsening of alignment. Reviewed, Interpreted and Dictated by Bobby Parsons III, MD Transcribed by Clint Cordero Authenticated and [facility]
== END ==
PROVIDERS: PCP Emergency Medicine; Visit Provider Orthopaedic Surgery
DX: S82.401A Unspecified fracture of shaft of right fibula, initial encounter for closed fracture (principal)
CPT/HCPCS: 73590

== ENCOUNTER → 2023-07-04 13:57 | Outpatient (CLI) | payer MEDICARE, MEDICAID, SELFPAY ==
--- NOTE | 2023-07-04 14:02 | XR_ITS ---
FINAL REPORT CLINICAL HISTORY: fracture COMPARISON: 05/16/2023 FINDINGS: AP and lateral views of the right tibia and fibula were obtained. There are displaced and angulated fractures of the distal tibia and fibula, likely unchanged in alignment given differences in patient is positioning. Only minimal interval healing is seen. Nondisplaced proximal fibular fracture is unchanged. The soft tissues are normal. IMPRESSION: Fractures as above without significant healing. Reviewed, Interpreted and Dictated by Angelika Pennington MD Transcribed by Shelly Aldridge Authenticated and [facility] [place] [place]
--- NOTE | 2023-07-04 14:02 | XR_ITS ---
FINAL REPORT CLINICAL HISTORY: right knee injury FINDINGS: AP, lateral and oblique views of the right knee were obtained. There is no prior exam for comparison. There is no acute osseous abnormality of the right knee. There is tricompartment degenerative joint disease. The bones are osteopenic. The soft tissues are normal. There is no joint effusion. IMPRESSION: Tri compartment degenerative joint disease. Reviewed, Interpreted and Dictated by Angelika Pennington MD Transcribed by Shelly Aldridge Authenticated and [facility]
== END ==
PROVIDERS: PCP Emergency Medicine; Visit Provider Orthopaedic Surgery
DX: S82.401A Unspecified fracture of shaft of right fibula, initial encounter for closed fracture (principal); Y99.9 Unspecified external cause status
CPT/HCPCS: 73562; 73590

== ENCOUNTER → 2023-07-25 11:38 | Outpatient (CLI) | payer MEDICARE, MEDICAID, SELFPAY | PROVIDERS: PCP Emergency Medicine; Visit Provider Emergency Medicine | DX: S91.002A Unspecified open wound, left ankle, initial encounter (principal); R41.89 Other symptoms and signs involving cognitive functions and awareness; B96.89 Other specified bacterial agents as the cause of diseases classified elsewhere | CPT/HCPCS: 87070; 87205 ==

== ENCOUNTER → 2023-08-29 10:46 | Outpatient (CLI) | payer MEDICARE, MEDICAID, SELFPAY ==
--- NOTE | 2023-08-29 11:00 | XR_ITS ---
FINAL REPORT CLINICAL HISTORY: fracture FINDINGS: Two views of the left tibia-fibula demonstrate no acute fracture or dislocation. Osteopenia is noted. There are mild degenerative changes. Calcaneal spurs are present. The visualized bony structures are well aligned. No soft tissue abnormality is seen. IMPRESSION: Osteopenia with mild degenerative change. Reviewed, Interpreted and Dictated by Bobby Parsons III, MD Transcribed by Clint Coredro Authenticated and [facility]
== END ==
PROVIDERS: PCP Emergency Medicine; Visit Provider Orthopaedic Surgery
DX: S82.122A Displaced fracture of lateral condyle of left tibia, initial encounter for closed fracture (principal); M79.662 Pain in left lower leg
CPT/HCPCS: 73590

== ENCOUNTER 2023-10-11 17:08 | Inpatient (IN) | payer MEDICARE, MEDICAID, SELFPAY ==
[2023-10-11 17:08] VITALS: BP 95/61; PULSE 103; RESP 15; TEMP 36.6; O2SAT 91; BMI 25.0
--- NOTE | 2023-10-11 17:45 | XR_ITS ---
PROCEDURE INFORMATION: Exam: XR Left Hip Exam date and time: 10/11/2023 6:04 PM Age: 62 years old Clinical indication: Injury or trauma; Fall; Blunt trauma (contusions or hematomas); Left; Hip; Additional info: Fall, left hip injury TECHNIQUE: Imaging protocol: Radiologic exam of the left hip. Views: 2 or 3 views hip with pelvis when performed. COMPARISON: CT ABDOMEN PELVIS W CON 04/11/2023 5:41 AM FINDINGS: Bones/joints: Mildly displaced spiral fracture at the mid to distal femoral shaft junction. Postsurgical changes of proximal femur intramedullary arvind and screw fixation with intact surgical hardware. Soft tissues: Unremarkable. IMPRESSION: Mildly displaced spiral fracture at the mid to distal femoral shaft junction.
--- NOTE | 2023-10-11 17:47 | ED_ITS ---
Discharge Plan Disposition Patient Disposition: Admitted Prescriptions Prescriptions: No Action acetaminophen 500 mg capsule 500 mg PO Q4HP PRN (Reason: PAIN) (DME) insulin syringe-needle U-100 1 mL 29 gauge x 1/2 syringe See Rx Instructions .ROUTE .MEDSUPPLY Qty: 10 Rx Instructions: As directed albuterol sulfate 90 mcg/actuation HFA aerosol inhaler 1 inh inhalation QID PRN (Reason: shortness of breath or wheezing) Qty: 8.5 12RF lactulose 10 gram/15 mL (15 mL) solution 30 ml PO DAILY PRN (Reason: Constipation) loperamide 2 mg capsule 2 mg PO Q6H PRN (Reason: loose stool) polyethylene glycol 3350 17 gram powder in packet 17 g PO DAILY PRN (Reason: Constipation) hydrocodone-acetaminophen 10-325 mg tablet 1 tab PO TID Qty: 90 0RF insulin glargine 100 unit/mL solution 14 unit SQ HS pregabalin [Lyrica] 100 mg capsule 100 mg PO TID Qty: 90 5RF metformin 500 mg tablet 500 mg PO BID ipratropium-albuterol 0.5 mg-3 mg(2.5 mg base)/3 mL solution for nebulization 3 ml inhalation Q6H PRN (Reason: .) ondansetron 4 mg tablet,disintegrating 4 mg PO Q8H PRN (Reason: Nausea And Vomiting) cyclobenzaprine 10 mg tablet 10 mg PO TID arginine (L-arginine) 500 mg tablet 1,000 mg PO BID insulin glargine [Lantus Solostar U-100 Insulin] 100 unit/mL (3 mL) insulin pen 14 unit SQ HS sennosides [Natural Senna Laxative] 8.6 mg tablet 17.2 mg PO DAILY Qty: 30 0RF Saccharomyces boulardii [Daily Probiotic (S. boulardii)] 250 mg capsule 250 mg PO DAILY multivitamin Tablet 1 tab PO DAILY venlafaxine 75 mg capsule,extended release 24hr 75 mg PO DAILY ascorbate calcium (vitamin C) 500 mg tablet 500 mg PO BID Referrals Follow up/Referrals: Provider,Referral, MD [Primary Care Provider] - See instructions Clinical Impressions Clinical Impression: Femur fracture, left Discharge ED Provider: Torrey Alvarado General Adult [facility] General Chief complaint: Fall Stated complaint: fall Time Seen by Provider: 10/11/23 17:35 Mode of Arrival: EMS Source of Information: Patient and EMS Limitations: No Limitations Description of Symptoms (Recalled from ER Triage Doc. by RN): 62 yo F presents to ED with c/o fall. pt resides at [facility]. pt and staff report that pt slid out of wheelchair, complains of left hip pain. pt does have hx of fractures. staff at senior care wanted pt checked out. History of Present Illness HPI narrative: Is a 62-year-old female with a history of bilateral ORIF of hip send chronic contractures of the left side of her body secondary to a stroke who presents today with left hip pain after falling out of her wheelchair. Has chronic pain in that area but states it still bit worse than normal. Related Data Home Medications Medication Instructions Recorded Confirmed acetaminophen 500 mg capsule 500 mg PO Q4HP PRN PAIN 09/14/21 10/11/23 insulin syringe-needle U-100 1 mL #10 ea 03/22/22 10/11/23 29 gauge x 1/2 insulin glargine 100 unit/mL 14 unit SQ HS Diabetes 09/22/23 10/11/23 subcutaneous solution lactulose 10 gram/15 mL (15 mL) 30 ml PO DAILY PRN Constipation 09/22/23 10/11/23 oral solution loperamide 2 mg capsule 2 mg PO Q6H PRN loose stool 09/22/23 10/11/23 metformin 500 mg tablet 500 mg PO BID . 09/22/23 10/11/23 polyethylene glycol 3350 17 gram 17 g PO DAILY PRN Constipation 09/22/23 10/11/23 oral powder packet Saccharomyces boulardii 250 mg 250 mg PO DAILY 09/29/23 10/11/23 capsule (Daily Probiotic (S. boulardii)) arginine (L-arginine) 500 mg tablet 1,000 mg PO BID 09/29/23 10/11/23 ascorbate calcium (vitamin C) 500 500 mg PO BID 09/29/23 10/11/23 mg tablet cyclobenzaprine 10 mg tablet 10 mg PO TID 09/29/23 10/11/23 insulin glargine 100 unit/mL (3 14 unit SQ HS 09/29/23 10/11/23 mL) subcutaneous pen (Lantus Solostar U-100 Insulin) ipratropium 0.5 mg-albuterol 3 mg 3 ml inhalation Q6H PRN . 09/29/23 10/11/23 (2.5 mg base)/3 mL nebulization soln multivitamin 1 tab PO DAILY 09/29/23 10/11/23 ondansetron 4 mg disintegrating 4 mg PO Q8H PRN Nausea And Vomiting 09/29/23 10/11/23 tablet venlafaxine 75 mg capsule,extended 75 mg PO DAILY 09/29/23 10/11/23 release 24 hr Previous Rx's Medication Instructions Recorded albuterol sulfate 90 mcg/actuation 1 inh inhalation QID PRN shortness 09/22/23 aerosol inhaler of breath or wheezing #8.5 grams hydrocodone 10 mg-acetaminophen 1 tab PO TID Pain #90 tabs 09/22/23 325 mg tablet pregabalin 100 mg capsule (Lyrica) 100 mg PO TID #90 caps 09/22/23 sennosides 8.6 mg tablet (Natural 17.2 mg PO DAILY constipation #30 09/29/23 Senna Laxative) tabs Allergies Allergy/AdvReac Type Severity Reaction Status Date / Time codeine Allergy Unknown Verified 10/11/23 17:12 Sulfa (Sulfonamide Allergy Unknown Verified 10/11/23 17:12 Antibiotics) [facility] Disclaimer: The information contained in this section may have been updated after the patient was seen, as this information can be updated by other users. Medical History (Updated 10/11/23 @ 18:56 by Torrey Alvarado MD) Diabetes Dyspnea on exertion Epileptic seizures related to external causes, not intractable, without status epilepticus Hemiplegia and hemiparesis following cerebral infarction affecting left non- dominant side History of 2019 novel coronavirus disease (COVID-19) History of smoking 30 or more pack years Hyperlipidemia Lung disease Lung nodule Mood disorder due to known physiological condition, unspecified Pulmonary emphysema Screening for lung cancer Smoking greater than 30 pack years TIA (transient ischemic attack) Surgical History History of section History of surgery on lower extremity Family History Other Emphysema of lung Lung cancer Social History Smoking Status: Current every day smoker tobacco type: cigarettes packs per day: 1 alcohol intake: never substance use type: denies use current occupational status: disabled Travel in the last 8 weeks: None housing: assisted living facility caffeine: Yes ROS Obtained: Yes All systems reviewed & no additional complaints except as documented Physical Exam General General appearance: alert Respiratory Respiratory exam: Present normal lung sounds bilaterally Cardiovascular Cardiovascular exam: Present regular rate; Absent tachycardia Extremities Exam Extremities exam: Present other (Patient chronically contracted in left upper and left lower extremities pants and briefs were taken off no significant skin breakdown patient has tenderness over the left lateral hip no soft tissue deformity neurovascularly intact no pain elsewhere) Neurological Exam Neurological exam: Present alert and oriented X3 Medical Decision Making Marquise Inquiry Pt receiving controlled substance: No Vital Signs: 10/11/23 17:08 10/11/23 18:00 Temperature 97.8 F Temperature Source Oral Pulse Rate 100 H Pulse Rate [Left Radial] 103 H Respiratory Rate 15 Blood Pressure 108/64 L Blood Pressure [Right Arm] 95/61 L Blood Pressure Mean 75 Blood Pressure Mean [Right Arm] 72 02 Sat by Pulse Oximetry 91 L 94 L Oxygen Delivery Method Room Air Orders (Tests/Meds): ED MEDICATIONS Discontinued Medications Generic Name Dose Route Start Last Admin Trade Name Freq PRN Reason Stop Dose Admin Hydrocodone Bitart/Acetaminophen 1 tab 10/11/23 17:47 10/11/23 17:56 Hydrocodone/Apap 5/325 Mg Tablet PO 10/11/23 17:48 1 tab ONCE ONE Administration ORDERS Category Date Time Status CT femur LT wo con Stat Cat Scan 10/11/23 19:15 Ordered Hip XR left minimum 2 views [XR hip LT 2-3V w/pelvis] Exams 10/11/23 17:45 Completed Stat XR femur LT 2V Stat Exams 10/11/23 18:11 Completed Medical Decision Narrative: 62-year-old female with above history with left hip pain differential includes contusion strain dislocation periprosthetic fracture pelvic fracture etc. Will get a left hip and pelvis x-ray give the patient a single dose of [place] and reassess. X-ray of the left hip showed a midshaft femur fracture femur x-rays were added onto this this does appear to be a new injury I spoke with Dr. Gomez and he reviewed the images and he is back in clinic tomorrow and can take the patient to the operating room at the earliest tomorrow evening or Monday. Patient is very comfortable on reassessment and her desire is to stay at this hospital and have Dr. Gomez work on her if possible. I spoke with Dr. Sahni who agreed to admit the patient for further evaluation and treatment. Critical Care Critical Care Time Critical Care Time: No
[2023-10-11] MEDS: HYDROCODONE/APAP 5/325 MG TABLET 1 TAB PO (17:56)
[2023-10-11 18:00] VITALS: BP 108/64; PULSE 100; O2SAT 94
--- NOTE | 2023-10-11 18:11 | XR_ITS ---
PROCEDURE INFORMATION: Exam: XR Left Femur Exam date and time: 10/11/2023 6:09 PM Age: 62 years old Clinical indication: Injury or trauma; Fall; Blunt trauma; Thigh or upper leg; Left TECHNIQUE: Imaging protocol: Radiologic exam of the left femur. Views: 2 views. COMPARISON: CR XR HIP LT 2-3V W/PELVIS 10/11/2023 6:04 PM FINDINGS: Bones/joints: Mildly displaced spiral fracture at the mid to distal femoral shaft junction. Postsurgical changes of proximal femur intramedullary arvind and screw fixation with intact surgical hardware. Soft tissues: Unremarkable. IMPRESSION: Mildly displaced spiral fracture at the mid to distal femoral shaft junction.
--- NOTE | 2023-10-11 19:09 | PC.NURSE ---
WILL LIVE SPEAKING WITH DR GOFF AT THIS TIME
--- NOTE | 2023-10-11 19:15 | CT_ITS ---
PROCEDURE INFORMATION: Exam: CT Left Lower Extremity Without Contrast; Thigh Exam date and time: 10/11/2023 7:39 PM Age: 62 years old Clinical indication: Injury or trauma; Fall; Blunt trauma; Thigh or upper leg; Left; Additional info: Pre-op plannign for Dr. Gomez, femur FX TECHNIQUE: Imaging protocol: CT of the left lower extremity without contrast was performed. Exam focused on the thigh. Radiation optimization: All CT scans at this facility use at least one of these dose optimization techniques: automated exposure control; mA and/or kV adjustment per patient size (includes targeted exams where dose is matched to clinical indication); or iterative reconstruction. COMPARISON: CR XR FEMUR LT 2V 10/11/2023 6:09 PM FINDINGS: Bones/joints: Osteopenia. Intramedullary arvind and screw fixation of the proximal femur with intact surgical hardware. Mildly comminuted mid to distal femoral shaft fracture with mild anterior and lateral displacement of the distal fracture fragment. Left hip osteoarthritis. Soft tissues: Minimal thigh subcutaneous soft tissue swelling. No significant fluid collection. No soft tissue gas. IMPRESSION: Mildly comminuted mildly displaced mid to distal femoral shaft spiral fracture.
[2023-10-11] MEDS: MORPHINE 4MG/ML SYRINGE 4 MG IV (19:36)
[2023-10-11] MEDS: ONDANSETRON 4MG/2ML VIAL 4 MG IV (19:36)
[2023-10-11 19:40] LABS: Basophils # 0.1 K/mm3 (0-0.2); Basophils % 0.4 % (0.1-2.0); Eosinophils # 0.5 K/mm3 (0.0-0.4); Eosinophils % 4.5 % (0.1-12.0); Hematocrit 30.5 % (37.0-47.0); Hemoglobin 10.4 g/dL (12.2-16.2); Lymphocytes # 1.3 K/mm3 (0.7-4.5); Lymphocytes % 11.8 % (10-50); Mean Corpuscular HGB Conc 34.1 g/dL (31.8-35.4); Mean Corpuscular Volume 76.2 fl (81-99); Mean Platelet Volume 8.3 fl (7.4-10.4); Monocytes # 0.3 K/mm3 (0.1-1.0); Monocytes % 2.9 % (1.7-9.3); Neutrophils # 8.8 K/mm3 (1.8-7.8); Neutrophils % 80.3 % (37.0-80.0); Platelet Count 340 K/mm3 (142-424); Red Cell Distribution Width 16.3 % (11.5-17.5); White Blood Count 10.9 K/mm3 (4.8-10.8)
[2023-10-11 19:43] VITALS: BP 106/65; PULSE 96; RESP 14; TEMP 36.6; O2SAT 92
[2023-10-11 19:48] LABS: Chloride 105 mmol/L (98-107); Potassium 4.2 mmoL/L (3.5-5.1); Sodium 135 mmol/L (136-145)
[2023-10-11 19:50] LABS: Blood Urea Nitrogen 19 mg/dl (7-17); Creatinine Clearance Estimated 69 mL/min (50-200); Estimated Glomerular Filt Rate 125 ml/min (>60); GFR (African American) 151 ML/MIN (>60)
[2023-10-11 19:51] LABS: Alanine Aminotransferase 23 U/L (12-78); Albumin Level 3.2 g/dl (3.5-5.0); Albumin/Globulin Ratio 0.9 (1.1-1.8); Alkaline Phosphatase 117 U/L (38-126); Anion Gap 10.2 mEq/L (5-15); Aspartate Amino Transferase 27 U/L (14-36); Bilirubin,Total 0.3 mg/dl (0.2-1.3); Carbon Dioxide 24 mmol/L (22.0-30.0); Globulin 3.4 g/dL (1.3-3.2); Glucose 161 mg/dl (74-100); INR 1.05 (0.9-1.1); Prothrombin Time 11.3 seconds (10.1-12.5); Total Protein,Serum 6.6 g/dl (6.3-8.2)
[2023-10-11 20:00] VITALS: BP 106/65; PULSE 101; RESP 18; TEMP 36.6; O2SAT 93
--- NOTE | 2023-10-11 20:10 | EXP.HP ---
History of Present Illness *Admission Date: 10/11/23 *Reason for visit:: left hip pain after falling *History of present illness: This is a 62 yo F resident at [facility], with PMHx of of bilateral ORIF of hip,CVA with chronic contractures of the left side of her body, COPD, diabetes that came to ED for evaluation of left hip pain after falling out of her wheelchair. History obtained form ER documentation, nursing staff report. Patient and staff report that pt slid out of wheelchair, complains of left hip pain. pt does have hx of fractures. Admitted for further work up and management [facility] Disclaimer: The information contained in this section may have been updated after the patient was seen, as this information can be updated by other users. Medical History (Updated 10/12/23 @ 07:08 by Aneudy Antonio APRN) Diabetes Dyspnea on exertion Epileptic seizures related to external causes, not intractable, without status epilepticus Hemiplegia and hemiparesis following cerebral infarction affecting left non-dominant side History of 2019 novel coronavirus disease (COVID-19) History of smoking 30 or more pack years Hyperlipidemia Lung disease Lung nodule Mood disorder due to known physiological condition, unspecified Pulmonary emphysema Screening for lung cancer Smoking greater than 30 pack years TIA (transient ischemic attack) Surgical History History of section History of surgery on lower extremity Family History Other Emphysema of lung Lung cancer Social History (Updated 10/11/23 @ 21:43 by Asia Venegas RN) Smoking Status: Current every day smoker tobacco type: cigarettes packs per day: 1 alcohol intake: never substance use type: denies use current occupational status: disabled Travel in the last 8 weeks: None housing: assisted living facility caffeine: Yes Review of Systems Review of Systems Review of systems:: pertinent systems reviewed and negative unless documented below Meds Home Medications and Allergies Home Medications Medication Instructions Recorded Confirmed Type acetaminophen 500 mg capsule 500 mg PO Q4HP PRN PAIN 09/14/21 10/11/23 History insulin syringe-needle U-100 1 mL #10 ea 03/22/22 10/11/23 History 29 gauge x 1/2 albuterol sulfate 90 mcg/actuation 1 inh inhalation QID PRN shortness 09/22/23 10/11/23 Rx aerosol inhaler of breath or wheezing #8.5 grams hydrocodone 10 mg-acetaminophen 1 tab PO TID Pain #90 tabs 09/22/23 10/11/23 Rx 325 mg tablet lactulose 10 gram/15 mL (15 mL) 30 ml PO DAILY PRN Constipation 09/22/23 10/11/23 History oral solution loperamide 2 mg capsule 2 mg PO Q6H PRN loose stool 09/22/23 10/11/23 History metformin 500 mg tablet 500 mg PO BID 09/22/23 10/11/23 History polyethylene glycol 3350 17 gram 17 g PO DAILY PRN Constipation 09/22/23 10/11/23 History oral powder packet pregabalin 100 mg capsule (Lyrica) 100 mg PO TID #90 caps 09/22/23 10/11/23 Rx Saccharomyces boulardii 250 mg 250 mg PO DAILY 09/29/23 10/11/23 History capsule (Daily Probiotic (S. boulardii)) arginine (L-arginine) 500 mg tablet 1,000 mg PO BID 09/29/23 10/11/23 History ascorbate calcium (vitamin C) 500 500 mg PO BID 09/29/23 10/11/23 History mg tablet cyclobenzaprine 10 mg tablet 10 mg PO TID 09/29/23 10/12/23 History insulin glargine 100 unit/mL (3 14 unit SQ HS 09/29/23 10/11/23 History mL) subcutaneous pen (Lantus Solostar U-100 Insulin) ipratropium 0.5 mg-albuterol 3 mg 3 ml inhalation Q6H PRN Shortness 09/29/23 10/11/23 History (2.5 mg base)/3 mL nebulization Of Breath soln multivitamin 1 tab PO DAILY 09/29/23 10/11/23 History ondansetron 4 mg disintegrating 4 mg PO Q8H PRN Nausea And Vomiting 09/29/23 10/11/23 History tablet venlafaxine 75 mg capsule,extended 75 mg PO DAILY 09/29/23 10/11/23 History release 24 hr sennosides 8.6 mg tablet (Natural 17.2 mg PO DAILY 10/12/23 10/11/23 History Senna Laxative) New Prescriptions to Start Prescriptions: Allergies Allergy/AdvReac Type Severity Reaction Status Date / Time codeine Allergy Unknown Verified 10/11/23 17:12 Sulfa (Sulfonamide Allergy Unknown Verified 10/11/23 17:12 Antibiotics) Exam Data for Last 24 hours Vital signs and Labs for Last 24 Hours: Temp Pulse Resp BP Pulse Ox O2 Del Method 97.9 F 96 H 14 106/65 L 94 L Room Air 10/11/23 19:43 10/11/23 19:43 10/11/23 19:43 10/11/23 19:43 10/11/23 18:00 10/11/23 19:43 Laboratory Results - last 24 hr 10/11/23 19:25: WBC 10.9 H, RBC 4.00 L, Hgb 10.4 L, Hct 30.5 L, MCV 76.2 L, MCH 26.0 L, MCHC 34.1, RDW 16.3, Plt Count 340, MPV 8.3, Neut % (Auto) 80.3 H, Lymph % (Auto) 11.8, [place] % (Auto) 2.9, Eos % (Auto) 4.5, Baso % (Auto) 0.4, Neut # (Auto) 8.8 H, Lymph # (Auto) 1.3, [place] # (Auto) 0.3, Eos # (Auto) 0.5 H, Baso # (Auto) 0.1, Sodium 135 L, Potassium 4.2, Chloride 105, Carbon Dioxide 24, Anion Gap 10.2, BUN 19 H, Creatinine 0.50 L, Estimated Creat Clear 69, Estimated GFR 125, Est GFR ( Amer) 151, Glucose 161 H, Calcium 8.0 L, Total Bilirubin 0.3, AST 27, ALT 23, Alkaline Phosphatase 117, Total Protein 6.6, Albumin 3.2 L, Globulin 3.4 H, Albumin/Globulin Ratio 0.9 L I & O for Last 24 hours: Intake & Output 10/08/23 10/09/23 10/10/23 10/11/23 23:59 23:59 23:59 23:59 Weight 74.843 kg Constitutional Constitutional: moderate distress, obese and cooperative *Routine HEENT Exam Head: Present normocephalic and atraumatic Eye: Present EOMI, PERRL and normal accommodation ENT: Present mucous membranes moist *Routine Neck Exam Neck: Present supple, full ROM and trachea midline *Routine Respiratory Exam Respiratory: Present normal respiratory effort, able to speak in complete sentences and symmetric chest movement; Absent respiratory distress *Routine Cardiovascular Exam Cardiovascular: Present RRR, Normal S1, Normal S2 and tachycardia *Routine Abdominal Exam Abdominal: Present soft, normoactive bowel sounds and obese; Absent organomegaly *Routine Rectal Exam Rectal:: deferred *Routine Genitalia Exam Genitalia:: deferred *Routine Extremities Exam Extremities: Present edema and pulses intact; Absent cyanosis or clubbing Comments: pain left thigh *Routine Skin Exam Skin: Present intact, dry and warm; Absent cyanosis or erythema *Routine Neurological Exam Neurological: Present alert, normal reflexes and normal speech Routine Psychiatric Exam Psychiatric: Present normal thought process, cooperative and good judgment H&P: Result Imaging and Cardiology EKG: Status: image reviewed by me and Preliminary report Femur CT: Status: image reviewed by me, Preliminary report and final report Assessment and Plan *Assessment and plan (1) Femur fracture, left: Status: Acute Qualifiers: Encounter type: initial encounter Femur location: shaft Fracture alignment: displaced Fracture morphology: comminuted Fracture type: closed Qualified Code(s): S72.352A - Displaced comminuted fracture of shaft of left femur, initial encounter for closed fracture Category: Medical Code(s): S72.92XA - Unspecified fracture of left femur, initial encounter for closed fracture (2) History of CVA with residual deficit: Status: Acute Category: Medical Code(s): I69.30 - Unspecified sequelae of cerebral infarction (3) Diabetes: Status: Chronic Qualifiers: Diabetes mellitus complication status: without complication Diabetes mellitus equipment operator intermodal yard insulin use: without shelter use Diabetes mellitus type: type 2 Qualified Code(s): E11.9 - Type 2 diabetes mellitus without complications Category: Medical Code(s): E11.9 - Type 2 diabetes mellitus without complications (4) S/P ORIF (open reduction internal fixation) fracture: Status: Acute Category: Surgical Code(s): Z98.890 - Other specified postprocedural states; Z87.81 - Personal history of (healed) traumatic fracture (5) Smoking greater than 30 pack years: Status: Acute Category: Social Hx Code(s): F17.210 - Nicotine dependence, cigarettes, uncomplicated Plan 62 yo F resident at [facility], with PMHx of of bilateral ORIF of hip,CVA with chronic contractures of the left side of her body, COPD, diabetes that came to ED for evaluation of left hip pain after falling out of her wheelchair. On arrival patient underwent Xray femur and hip as well as CT that showed Mildly comminuted mildly displaced mid to distal femoral shaft spiral fracture. Labs are grossly unremarkable. Findings discussed with ER for admission. Plan as follow: -Mildly displaced femoral fracture, status post fall: Admit patient to medical surgical services. Dispo MedSurg Orthopedic consult Pain management. Tylenol and morphine as needed Vital signs per unit per CT and x-ray reviewed Obtain and watch morning lab -History of CVA, with left-sided weakness Continue monitor PT OT after surgery -History of diabetes: Resume home regimen of insulin Accu-Chek before meals On sliding scale -Status post bilateral ORIF: Chronic pain management Reconcile and resume home regimen -Smoking greater than 30-year with COPD changes: Maximize O2 saturation prior to surgery Home albuterol ,SCD for DVT prophylaxis, Protonix for GI bleeding protection Full code Attending attestation Patient was seen and evaluated at the bedside myself, agree with PURCHASING AND CLAIMS SUPERVISOR note.
[2023-10-11] MEDS: PANTOPRAZOLE 40MG TABLET 40 MG PO (21:29)
[2023-10-11] MEDS: DOCUSATE SODIUM 100 MG CAPSULE PO (21:29)
[2023-10-11] MEDS: ACETAMINOPHEN 325MG TAB 650 MG PO (21:31)
[2023-10-12 04:00] VITALS: BP 91/47; PULSE 99; RESP 18; TEMP 37.1; O2SAT 90; BMI 23.8
[2023-10-12 05:58] LABS: Basophils % 0.4 % (0.1-2.0); Eosinophils # 0.3 K/mm3 (0.0-0.4); Eosinophils % 4.6 % (0.1-12.0); Hematocrit 29.7 % (37.0-47.0); Hemoglobin 9.5 g/dL (12.2-16.2); Lymphocytes # 1.1 K/mm3 (0.7-4.5); Lymphocytes % 16.7 % (10-50); Mean Corpuscular HGB Conc 32.1 g/dL (31.8-35.4); Mean Corpuscular Hemoglobin 24.4 pg (27.0-31.2); Mean Corpuscular Volume 76.1 fl (81-99); Mean Platelet Volume 8.1 fl (7.4-10.4); Monocytes # 0.3 K/mm3 (0.1-1.0); Monocytes % 4.8 % (1.7-9.3); Neutrophils % 73.6 % (37.0-80.0); Platelet Count 307 K/mm3 (142-424); Red Cell Distribution Width 16.4 % (11.5-17.5); White Blood Count 6.8 K/mm3 (4.8-10.8)
[2023-10-12 06:09] LABS: Alanine Aminotransferase 18 U/L (12-78); Albumin Level 2.8 g/dl (3.5-5.0); Albumin/Globulin Ratio 0.9 (1.1-1.8); Alkaline Phosphatase 101 U/L (38-126); Anion Gap 6.5 mEq/L (5-15); Aspartate Amino Transferase 22 U/L (14-36); Bilirubin,Total 0.2 mg/dl (0.2-1.3); Blood Urea Nitrogen 17 mg/dl (7-17); Calcium 7.6 mg/dl (8.4-10.2); Carbon Dioxide 27 mmol/L (22.0-30.0); Chloride 105 mmol/L (98-107); Creatinine Clearance Estimated 66 mL/min (50-200); Estimated Glomerular Filt Rate 101 ml/min (>60); GFR (African American) 123 ML/MIN (>60); Globulin 3.1 g/dL (1.3-3.2); Glucose 146 mg/dl (74-100); Magnesium 1.8 mg/dl (1.6-2.3); Potassium 4.5 mmoL/L (3.5-5.1); Sodium 134 mmol/L (136-145); Total Protein,Serum 5.9 g/dl (6.3-8.2)
[2023-10-12 06:39] LABS: POC Glucose,Bedside 153 (70-110)
--- NOTE | 2023-10-12 07:44 | SW/DCPLANNER ---
Addendum entered by Soo Thomas 10/13/23 11:26: Per Essie nieves/ Priscilla Aguilera patient can return once medically stable for discharge including over the weekend. Addendum entered by Soo Thomas 10/13/23 09:59: Updated patient information has been faxed to Essie nieves/ Priscilla Aguilera. Original Note: This patient currently resides at [facility] level of care. I will continue to follow up lizbeth/ Essie at [facility] until patient is medically stable for discharge. Discharge date is unknown at this time.
[2023-10-12] MEDS: DOCUSATE SODIUM 100 MG CAPSULE PO (07:52)
[2023-10-12] MEDS: ACETAMINOPHEN 325MG TAB 650 MG PO ×3 (07:52→21:18)
[2023-10-12] MEDS: PANTOPRAZOLE 40MG TABLET 40 MG PO (07:52)
[2023-10-12 08:00] VITALS: BP 106/56; PULSE 99; RESP 16; TEMP 36.7; O2SAT 91
--- NOTE | 2023-10-12 08:08 | P.CONPHA_ITS ---
Pharmacy Intervention Comments: Home med list verified with MAR from [place].
[2023-10-12] MEDS: MORPHINE 2MG/ML SYRINGE 1 MG IV ×4 (10:16→21:18)
--- NOTE | 2023-10-12 12:08 | PC.NURSE ---
Patient complained of pain 10/10 after bed change. Doctor notified. Ordered to give a dose of 1 mg morphine early.
[2023-10-12 12:09] LABS: POC Glucose,Bedside 117 (70-110)
--- NOTE | 2023-10-12 13:05 | EXP.ORTH.CON ---
History of Present Illness *Admission Date: 10/11/23 *History of present illness: This is a 62 yo F resident at [facility], with PMHx of of bilateral ORIF of hip,CVA with chronic contractures of the left side of her body, COPD, diabetes that came to ED for evaluation of left hip pain after falling out of her wheelchair. History obtained form ER documentation, nursing staff report. Patient and staff report that pt slid out of wheelchair, complains of left hip pain. pt does have hx of fractures. Admitted for further work up and management. Workup in the emergency room did show left midshaft femur fracture orthopedics consulted for treatment options. Of note patient is nonambulatory because of previous fractures and contractures and stroke. [facility] Disclaimer: The information contained in this section may have been updated after the patient was seen, as this information can be updated by other users. Medical History (Updated 10/12/23 @ 07:08 by Aneudy Antonio APRN) Diabetes Dyspnea on exertion Epileptic seizures related to external causes, not intractable, without status epilepticus Hemiplegia and hemiparesis following cerebral infarction affecting left non-dominant side History of 2019 novel coronavirus disease (COVID-19) History of smoking 30 or more pack years Hyperlipidemia Lung disease Lung nodule Mood disorder due to known physiological condition, unspecified Pulmonary emphysema Screening for lung cancer Smoking greater than 30 pack years TIA (transient ischemic attack) Surgical History History of section History of surgery on lower extremity Family History Other Emphysema of lung Lung cancer Social History (Updated 10/11/23 @ 21:43 by Asia Venegas RN) Smoking Status: Current every day smoker tobacco type: cigarettes packs per day: 1 alcohol intake: never substance use type: denies use current occupational status: disabled Travel in the last 8 weeks: None housing: assisted living facility caffeine: Yes Meds Home Medications and Allergies Home Medications Medication Instructions Recorded Confirmed Type acetaminophen 500 mg capsule 500 mg PO Q4HP PRN PAIN 09/14/21 10/11/23 History insulin syringe-needle U-100 1 mL #10 ea 03/22/22 10/11/23 History 29 gauge x 1/2 albuterol sulfate 90 mcg/actuation 1 inh inhalation QID PRN shortness 09/22/23 10/11/23 Rx aerosol inhaler of breath or wheezing #8.5 grams hydrocodone 10 mg-acetaminophen 1 tab PO TID Pain #90 tabs 09/22/23 10/11/23 Rx 325 mg tablet lactulose 10 gram/15 mL (15 mL) 30 ml PO DAILY PRN Constipation 09/22/23 10/11/23 History oral solution loperamide 2 mg capsule 2 mg PO Q6H PRN loose stool 09/22/23 10/11/23 History metformin 500 mg tablet 500 mg PO BID 09/22/23 10/11/23 History polyethylene glycol 3350 17 gram 17 g PO DAILY PRN Constipation 09/22/23 10/11/23 History oral powder packet pregabalin 100 mg capsule (Lyrica) 100 mg PO TID #90 caps 09/22/23 10/11/23 Rx Saccharomyces boulardii 250 mg 250 mg PO DAILY 09/29/23 10/11/23 History capsule (Daily Probiotic (S. boulardii)) arginine (L-arginine) 500 mg tablet 1,000 mg PO BID 09/29/23 10/11/23 History ascorbate calcium (vitamin C) 500 500 mg PO BID 09/29/23 10/11/23 History mg tablet cyclobenzaprine 10 mg tablet 10 mg PO TID 09/29/23 10/12/23 History insulin glargine 100 unit/mL (3 14 unit SQ HS 09/29/23 10/11/23 History mL) subcutaneous pen (Lantus Solostar U-100 Insulin) ipratropium 0.5 mg-albuterol 3 mg 3 ml inhalation Q6H PRN Shortness 09/29/23 10/11/23 History (2.5 mg base)/3 mL nebulization Of Breath soln multivitamin 1 tab PO DAILY 09/29/23 10/11/23 History ondansetron 4 mg disintegrating 4 mg PO Q8H PRN Nausea And Vomiting 09/29/23 10/11/23 History tablet venlafaxine 75 mg capsule,extended 75 mg PO DAILY 09/29/23 10/11/23 History release 24 hr sennosides 8.6 mg tablet (Natural 17.2 mg PO DAILY 10/12/23 10/11/23 History Senna Laxative) New Prescriptions to Start Prescriptions: Allergies Allergy/AdvReac Type Severity Reaction Status Date / Time codeine Allergy Unknown Verified 10/11/23 17:12 Sulfa (Sulfonamide Allergy Unknown Verified 10/11/23 17:12 Antibiotics) Ortho Exam (Inpt) Vital signs and Labs for Last 24 Hours: Temp Pulse Resp BP Pulse Ox O2 Del Method 98.1 F 99 H 16 106/56 L 91 L Room Air 10/12/23 08:00 10/12/23 08:00 10/12/23 08:00 10/12/23 08:00 10/12/23 08:00 10/12/23 11:05 Laboratory Results - last 24 hr 10/11/23 19:25: WBC 10.9 H, RBC 4.00 L, Hgb 10.4 L, Hct 30.5 L, MCV 76.2 L, MCH 26.0 L, MCHC 34.1, RDW 16.3, Plt Count 340, MPV 8.3, Neut % (Auto) 80.3 H, Lymph % (Auto) 11.8, [place] % (Auto) 2.9, Eos % (Auto) 4.5, Baso % (Auto) 0.4, Neut # (Auto) 8.8 H, Lymph # (Auto) 1.3, [place] # (Auto) 0.3, Eos # (Auto) 0.5 H, Baso # (Auto) 0.1, PT 11.3, INR 1.05, Sodium 135 L, Potassium 4.2, Chloride 105, Carbon Dioxide 24, Anion Gap 10.2, BUN 19 H, Creatinine 0.50 L, Estimated Creat Clear 69, Estimated GFR 125, Est GFR ( Amer) 151, Glucose 161 H, Calcium 8.0 L, Total Bilirubin 0.3, AST 27, ALT 23, Alkaline Phosphatase 117, Total Protein 6.6, Albumin 3.2 L, Globulin 3.4 H, Albumin/Globulin Ratio 0.9 L 10/12/23 05:22: WBC 6.8 D, RBC 3.90 L, Hgb 9.5 L, Hct 29.7 L, MCV 76.1 L, MCH 24.4 L, MCHC 32.1, RDW 16.4, Plt Count 307, MPV 8.1, Neut % (Auto) 73.6, Lymph % (Auto) 16.7, [place] % (Auto) 4.8, Eos % (Auto) 4.6, Baso % (Auto) 0.4, Neut # (Auto) 5.0, Lymph # (Auto) 1.1, [place] # (Auto) 0.3, Eos # (Auto) 0.3, Baso # (Auto) 0.0, Sodium 134 L, Potassium 4.5, Chloride 105, Carbon Dioxide 27, Anion Gap 6.5, BUN 17, Creatinine 0.60, Estimated Creat Clear 66, Estimated GFR 101, Est GFR ( Amer) 123, Glucose 146 H, Calcium 7.6 L, Magnesium 1.8, Total Bilirubin 0.2, AST 22, ALT 18, Alkaline Phosphatase 101, Total Protein 5.9 L, Albumin 2.8 L D, Globulin 3.1, Albumin/Globulin Ratio 0.9 L 10/12/23 06:09: POC Glucose 153 H 10/12/23 11:44: POC Glucose 117 H I & O for Labs for Last 24 Hours: Intake & Output 10/09/23 10/10/23 10/11/23 10/12/23 23:59 23:59 23:59 23:59 Intake Total 240 / 240 Output Total 0 / 0 0 / 0 Balance 0 / 0 240 / 240 Weight 165 lb 157 lb Findings:: Left lower extremity: Tenderness to palpation around the thigh. Grossly neurovascular intact. Currently the leg is internally rotated and resting on top of the right leg. She has minimal pain without movement. X-rays and CT scan revealed midshaft periprosthetic femur fracture. Results Labs 10/12/23 05:22 10/12/23 05:22 Labs: Abnormal lab results 10/11/23 10/12/23 10/12/23 Range/Units 19:25 05:22 06:09 WBC 10.9 H (4.8-10.8) K/mm3 RBC 4.00 L 3.90 L (4.20-5.40) M/mm3 Hgb 10.4 L 9.5 L (12.2-16.2) g/dL Hct 30.5 L 29.7 L (37.0-47.0) % MCV 76.2 L 76.1 L (81-99) fl MCH 26.0 L 24.4 L (27.0-31.2) pg Neut % (Auto) 80.3 H (37.0-80.0) % Neut # (Auto) 8.8 H (1.8-7.8) K/mm3 Eos # (Auto) 0.5 H (0.0-0.4) K/mm3 Sodium 135 L 134 L (136-145) mmol/L BUN 19 H (7-17) mg/dl Creatinine 0.50 L (0.52-1.04) mg/dl Glucose 161 H 146 H (74-100) mg/dl POC Glucose 153 H (70-110) Calcium 8.0 L 7.6 L (8.4-10.2) mg/dl Total Protein 5.9 L (6.3-8.2) g/dl Albumin 3.2 L 2.8 L D (3.5-5.0) g/dl Globulin 3.4 H (1.3-3.2) g/dL Albumin/Globulin Ratio 0.9 L 0.9 L (1.1-1.8) 10/12/23 Range/Units 11:44 WBC (4.8-10.8) K/mm3 RBC (4.20-5.40) M/mm3 Hgb (12.2-16.2) g/dL Hct (37.0-47.0) % MCV (81-99) fl MCH (27.0-31.2) pg Neut % (Auto) (37.0-80.0) % Neut # (Auto) (1.8-7.8) K/mm3 Eos # (Auto) (0.0-0.4) K/mm3 Sodium (136-145) mmol/L BUN (7-17) mg/dl Creatinine (0.52-1.04) mg/dl Glucose (74-100) mg/dl POC Glucose 117 H (70-110) Calcium (8.4-10.2) mg/dl Total Protein (6.3-8.2) g/dl Albumin (3.5-5.0) g/dl Globulin (1.3-3.2) g/dL Albumin/Globulin Ratio (1.1-1.8) H & H 10/11/23 10/12/23 Range/Units 19:25 05:22 Hgb 10.4 L 9.5 L (12.2-16.2) g/dL Hct 30.5 L 29.7 L (37.0-47.0) % Coagulation 10/11/23 Range/Units 19:25 INR 1.05 (0.9-1.1) All other labs normal. Assessment and Plan *Assessment and plan (1) Femur fracture, left: Status: Acute Qualifiers: Encounter type: initial encounter Femur location: shaft Fracture alignment: displaced Fracture morphology: comminuted Fracture type: closed Qualified Code(s): S72.352A - Displaced comminuted fracture of shaft of left femur, initial encounter for closed fracture Category: Medical Code(s): S72.92XA - Unspecified fracture of left femur, initial encounter for closed fracture Plan Patient is a very difficult situation. She has residual left-sided issues secondary to stroke. She has been nonambulatory. She had a severe right distal tibia fracture. However given the nature of the fracture and its unstable nature on the femur operative intervention would be adequate to allow for transfers and safe mobility mechanisms with lifting and positioning in the wheelchair. Will plan on open reduction internal fixation of the left femoral shaft fracture PROPOSED SURGERY: Open reduction internal fixation left femoral shaft fracture the risks and benefits of the proposed surgery were discussed in depth with the patient. Potential complications including inherent risk of anesthesia, infection, neurovascular damage, DVT, and rare but real potential loss of limb or life were all reviewed. Patient voices understanding and seems to understand to my satisfaction and wishes to proceed with surgery. I gave them adequate time to ask any questions they have pertaining to this surgery and answered all of them to the best of my ability. I gave them no guarantees in regards to outcomes of this surgery.
--- NOTE | 2023-10-12 13:20 | EXP.PN ---
Subjective *Date: 10/12/23 *Time: 13:20 Interval history: patient was seen and evaluated at the bedside. No reported acute events overnight, denies chest pain, shortness of breath, nausea, vomiting, abdominal pain. Exam Data for Last 24 hours Vital signs and Labs for Last 24 Hours: Temp Pulse Resp BP Pulse Ox O2 Del Method 98.1 F 99 H 16 106/56 L 91 L Room Air 10/12/23 08:00 10/12/23 08:00 10/12/23 08:00 10/12/23 08:00 10/12/23 08:00 10/12/23 11:05 Laboratory Results - last 24 hr 10/11/23 19:25: WBC 10.9 H, RBC 4.00 L, Hgb 10.4 L, Hct 30.5 L, MCV 76.2 L, MCH 26.0 L, MCHC 34.1, RDW 16.3, Plt Count 340, MPV 8.3, Neut % (Auto) 80.3 H, Lymph % (Auto) 11.8, [place] % (Auto) 2.9, Eos % (Auto) 4.5, Baso % (Auto) 0.4, Neut # (Auto) 8.8 H, Lymph # (Auto) 1.3, [place] # (Auto) 0.3, Eos # (Auto) 0.5 H, Baso # (Auto) 0.1, PT 11.3, INR 1.05, Sodium 135 L, Potassium 4.2, Chloride 105, Carbon Dioxide 24, Anion Gap 10.2, BUN 19 H, Creatinine 0.50 L, Estimated Creat Clear 69, Estimated GFR 125, Est GFR ( Amer) 151, Glucose 161 H, Calcium 8.0 L, Total Bilirubin 0.3, AST 27, ALT 23, Alkaline Phosphatase 117, Total Protein 6.6, Albumin 3.2 L, Globulin 3.4 H, Albumin/Globulin Ratio 0.9 L 10/12/23 05:22: WBC 6.8 D, RBC 3.90 L, Hgb 9.5 L, Hct 29.7 L, MCV 76.1 L, MCH 24.4 L, MCHC 32.1, RDW 16.4, Plt Count 307, MPV 8.1, Neut % (Auto) 73.6, Lymph % (Auto) 16.7, [place] % (Auto) 4.8, Eos % (Auto) 4.6, Baso % (Auto) 0.4, Neut # (Auto) 5.0, Lymph # (Auto) 1.1, [place] # (Auto) 0.3, Eos # (Auto) 0.3, Baso # (Auto) 0.0, Sodium 134 L, Potassium 4.5, Chloride 105, Carbon Dioxide 27, Anion Gap 6.5, BUN 17, Creatinine 0.60, Estimated Creat Clear 66, Estimated GFR 101, Est GFR ( Amer) 123, Glucose 146 H, Calcium 7.6 L, Magnesium 1.8, Total Bilirubin 0.2, AST 22, ALT 18, Alkaline Phosphatase 101, Total Protein 5.9 L, Albumin 2.8 L D, Globulin 3.1, Albumin/Globulin Ratio 0.9 L 10/12/23 06:09: POC Glucose 153 H 10/12/23 11:44: POC Glucose 117 H I & O for Last 24 hours: Intake & Output 10/09/23 10/10/23 10/11/23 10/12/23 23:59 23:59 23:59 23:59 Intake Total 240 / 240 Output Total 0 / 0 0 / 0 Balance 0 / 0 240 / 240 Weight 74.843 kg 71.214 kg Constitutional Constitutional: no acute distress *Routine HEENT Exam Head: Present normocephalic Eye: Present EOMI and PERRL ENT: Present mucous membranes moist *Routine Neck Exam Neck: Present supple; Absent lymphadenopathy *Routine Respiratory Exam Respiratory: Present CTA bilaterally *Routine Cardiovascular Exam Cardiovascular: Present RRR *Routine Abdominal Exam Abdominal: Present soft and normoactive bowel sounds; Absent tenderness *Routine Extremities Exam Extremities: Present tenderness; Absent cyanosis, clubbing or edema Comments: LLE - decreased ROM and tender to palpation *Routine Skin Exam Skin: Present warm; Absent rash *Routine Neurological Exam Neurological: Present alert and oriented X3 Assessment and Plan *Assessment and plan (1) Femur fracture, left: Status: Acute Qualifiers: Encounter type: initial encounter Femur location: shaft Fracture alignment: displaced Fracture morphology: comminuted Fracture type: closed Qualified Code(s): S72.352A - Displaced comminuted fracture of shaft of left femur, initial encounter for closed fracture Category: Medical Code(s): S72.92XA - Unspecified fracture of left femur, initial encounter for closed fracture (2) History of CVA with residual deficit: Status: Acute Category: Medical Code(s): I69.30 - Unspecified sequelae of cerebral infarction (3) Diabetes: Status: Chronic Qualifiers: Diabetes mellitus type: type 2 Diabetes mellitus assistant terminal manager insulin use: without correction use Diabetes mellitus complication status: without complication Qualified Code(s): E11.9 - Type 2 diabetes mellitus without complications Category: Medical Code(s): E11.9 - Type 2 diabetes mellitus without complications (4) S/P ORIF (open reduction internal fixation) fracture: Status: Acute Category: Surgical Code(s): Z98.890 - Other specified postprocedural states; Z87.81 - Personal history of (healed) traumatic fracture (5) Smoking greater than 30 pack years: Status: Acute Category: Social Hx Code(s): F17.210 - Nicotine dependence, cigarettes, uncomplicated Plan 62 yo F resident at [facility], with PMHx of of bilateral ORIF of hip,CVA with chronic contractures of the left side of her body, COPD, diabetes that came to ED for evaluation of left hip pain after falling out of her wheelchair. On arrival patient underwent Xray femur and hip as well as CT that showed Mildly comminuted mildly displaced mid to distal femoral shaft spiral fracture. Labs are grossly unremarkable. Findings discussed with ER for admission. Plan as follow: -Mildly displaced femoral fracture, status post fall: Orthopedic consult plan for surgery tomorrow NPO after MN will likely need SNF Pain management. Tylenol and morphine as needed -History of CVA, with left-sided weakness Continue monitor PT OT after surgery -History of diabetes: Resume home regimen of insulin Accu-Chek before meals On sliding scale -Status post bilateral ORIF: Chronic pain management Reconcile and resume home regimen -Smoking greater than 30-year with COPD changes: Maximize O2 saturation prior to surgery Home albuterol ,SCD for DVT prophylaxis, Protonix for GI bleeding protection Full code
--- NOTE | 2023-10-12 15:58 | PC.NURSE ---
Pain relieved with IV pain medication as well as oral tylenol. VS stable and patient remained on room air. No other changes noted.
[2023-10-12 16:00] VITALS: BP 106/67; PULSE 103; RESP 18; TEMP 36.9; O2SAT 95
[2023-10-12 16:45] LABS: POC Glucose,Bedside 104 (70-110)
[2023-10-12 20:00] VITALS: BP 128/64; PULSE 99; RESP 18; TEMP 36.8; O2SAT 96
[2023-10-13] VITALS (19 sets, daily range): BP systolic 99–141; BP diastolic 52–75; PULSE 97–114; RESP 12–18; TEMP 36.3–38.1; O2SAT 90–99; BMI 23.5
[2023-10-13 07:04] LABS: Basophils % 0.3 % (0.1-2.0); Eosinophils # 0.2 K/mm3 (0.0-0.4); Eosinophils % 2.1 % (0.1-12.0); Hematocrit 32.5 % (37.0-47.0); Hemoglobin 10.4 g/dL (12.2-16.2); Lymphocytes # 0.8 K/mm3 (0.7-4.5); Lymphocytes % 9.5 % (10-50); Mean Corpuscular HGB Conc 32.2 g/dL (31.8-35.4); Mean Corpuscular Hemoglobin 24.5 pg (27.0-31.2); Mean Corpuscular Volume 76.2 fl (81-99); Mean Platelet Volume 8.9 fl (7.4-10.4); Monocytes # 0.3 K/mm3 (0.1-1.0); Monocytes % 3.1 % (1.7-9.3); Neutrophils # 7.3 K/mm3 (1.8-7.8); Neutrophils % 84.9 % (37.0-80.0); Platelet Count 307 K/mm3 (142-424); Red Blood Count 4.26 M/mm3 (4.20-5.40); Red Cell Distribution Width 16.2 % (11.5-17.5); White Blood Count 8.6 K/mm3 (4.8-10.8)
[2023-10-13 07:18] LABS: Anion Gap 6.9 mEq/L (5-15); Blood Urea Nitrogen 11 mg/dl (7-17); Calcium 8.1 mg/dl (8.4-10.2); Carbon Dioxide 27 mmol/L (22.0-30.0); Chloride 104 mmol/L (98-107); Creatinine Clearance Estimated 65 mL/min (50-200); Estimated Glomerular Filt Rate 125 ml/min (>60); GFR (African American) 151 ML/MIN (>60); Glucose 159 mg/dl (74-100); Potassium 3.9 mmoL/L (3.5-5.1); Sodium 134 mmol/L (136-145)
[2023-10-13] MEDS: MORPHINE 2MG/ML SYRINGE 1 MG IV ×3 (09:12→20:25)
--- NOTE | 2023-10-13 09:34 | EXP.PN ---
Subjective *Date: 10/13/23 *Time: 09:34 Interval history: patient was seen and evaluated at the bedside. No reported acute events overnight, denies chest pain, shortness of breath, nausea, vomiting, abdominal pain. Exam Data for Last 24 hours Vital signs and Labs for Last 24 Hours: Temp Pulse Resp BP Pulse Ox O2 Del Method 98.7 F 103 H 18 132/74 94 L Room Air 10/13/23 08:00 10/13/23 08:00 10/13/23 08:00 10/13/23 08:00 10/13/23 08:00 10/13/23 09:00 Laboratory Results - last 24 hr 10/12/23 11:44: POC Glucose 117 H 10/12/23 16:29: POC Glucose 104 10/13/23 06:40: WBC 8.6 D, RBC 4.26, Hgb 10.4 L, Hct 32.5 L, MCV 76.2 L, MCH 24.5 L, MCHC 32.2, RDW 16.2, Plt Count 307, MPV 8.9, Neut % (Auto) 84.9 H, Lymph % (Auto) 9.5 L, [place] % (Auto) 3.1, Eos % (Auto) 2.1, Baso % (Auto) 0.3, Neut # (Auto) 7.3, Lymph # (Auto) 0.8, [place] # (Auto) 0.3, Eos # (Auto) 0.2, Baso # (Auto) 0.0, Sodium 134 L, Potassium 3.9, Chloride 104, Carbon Dioxide 27, Anion Gap 6.9, BUN 11 D, Creatinine 0.50 L, Estimated Creat Clear 65, Estimated GFR 125, Est GFR ( Amer) 151 D, Glucose 159 H, Calcium 8.1 L I & O for Last 24 hours: Intake & Output 10/10/23 10/11/23 10/12/23 10/13/23 23:59 23:59 23:59 23:59 Intake Total 360 / 360 Output Total 0 / 0 700 / 700 850 / 850 Balance 0 / 0 -340 / -340 -850 / -850 Weight 74.843 kg 71.214 kg 70.392 kg Constitutional Constitutional: no acute distress *Routine HEENT Exam Head: Present normocephalic Eye: Present EOMI and PERRL ENT: Present mucous membranes moist *Routine Neck Exam Neck: Present supple; Absent lymphadenopathy *Routine Respiratory Exam Respiratory: Present CTA bilaterally *Routine Cardiovascular Exam Cardiovascular: Present RRR *Routine Abdominal Exam Abdominal: Present soft and normoactive bowel sounds; Absent tenderness *Routine Extremities Exam Extremities: Present tenderness; Absent cyanosis, clubbing or edema Comments: LLE - decreased ROM and tender to palpation *Routine Skin Exam Skin: Present warm; Absent rash *Routine Neurological Exam Neurological: Present alert and oriented X3 Assessment and Plan *Assessment and plan (1) Femur fracture, left: Status: Acute Qualifiers: Encounter type: initial encounter Femur location: shaft Fracture alignment: displaced Fracture morphology: comminuted Fracture type: closed Qualified Code(s): S72.352A - Displaced comminuted fracture of shaft of left femur, initial encounter for closed fracture Category: Medical Code(s): S72.92XA - Unspecified fracture of left femur, initial encounter for closed fracture (2) History of CVA with residual deficit: Status: Acute Category: Medical Code(s): I69.30 - Unspecified sequelae of cerebral infarction (3) Diabetes: Status: Chronic Qualifiers: Diabetes mellitus type: type 2 Diabetes mellitus manager intermediate insulin use: without senior living use Diabetes mellitus complication status: without complication Qualified Code(s): E11.9 - Type 2 diabetes mellitus without complications Category: Medical Code(s): E11.9 - Type 2 diabetes mellitus without complications (4) S/P ORIF (open reduction internal fixation) fracture: Status: Acute Category: Surgical Code(s): Z98.890 - Other specified postprocedural states; Z87.81 - Personal history of (healed) traumatic fracture (5) Smoking greater than 30 pack years: Status: Acute Category: Social Hx Code(s): F17.210 - Nicotine dependence, cigarettes, uncomplicated Plan 62 yo F resident at [facility], with PMHx of of bilateral ORIF of hip,CVA with chronic contractures of the left side of her body, COPD, diabetes that came to ED for evaluation of left hip pain after falling out of her wheelchair. On arrival patient underwent Xray femur and hip as well as CT that showed Mildly comminuted mildly displaced mid to distal femoral shaft spiral fracture. Labs are grossly unremarkable. Findings discussed with ER for admission. Plan as follow: -Mildly displaced femoral fracture, status post fall: Orthopedic consult plan for surgery today NPO after MN will likely need SNF Pain management. Tylenol and morphine as needed -History of CVA, with left-sided weakness Continue monitor PT OT after surgery -History of diabetes: Resume home regimen of insulin Accu-Chek before meals On sliding scale -Status post bilateral ORIF: Chronic pain management Reconcile and resume home regimen -Smoking greater than 30-year with COPD changes: Maximize O2 saturation prior to surgery Home albuterol ,SCD for DVT prophylaxis, Protonix for GI bleeding protection Full code Await ortho procedure today, may need SNF
--- NOTE | 2023-10-13 10:09 | EXP.ANES.CKL ---
[facility] Disclaimer: The information contained in this section may have been updated after the patient was seen, as this information can be updated by other users. Medical History (Updated 10/12/23 @ 07:08 by Aneudy Antonio APRN) Diabetes Dyspnea on exertion Epileptic seizures related to external causes, not intractable, without status epilepticus Hemiplegia and hemiparesis following cerebral infarction affecting left non-dominant side History of 2019 novel coronavirus disease (COVID-19) History of smoking 30 or more pack years Hyperlipidemia Lung disease Lung nodule Mood disorder due to known physiological condition, unspecified Pulmonary emphysema Screening for lung cancer Smoking greater than 30 pack years TIA (transient ischemic attack) Surgical History History of section History of surgery on lower extremity Family History Other Emphysema of lung Lung cancer Social History (Updated 10/11/23 @ 21:43 by Asia Venegas RN) Smoking Status: Current every day smoker tobacco type: cigarettes packs per day: 1 alcohol intake: never substance use type: denies use current occupational status: disabled Travel in the last 8 weeks: None housing: assisted living facility caffeine: Yes [facility] Anesthesia Checklist Patient Identification Patient Identification: Arm Band Structural Data Admitted From: Inpatient Planned Operative Procedure/s: ORIF Left Femur Consent for Planned Operative Procedure(s) Verified: Yes Verified Documents: Surgical Consent and History and Physical NPO Status Verified Time NPO: 00:00 Additional verifications Anesthesia Reactions: No Airway Assessment Mallampati Score:: Class II C-Spine Mobility Assessed: Yes TMJ Mobility Assessed: Yes Dentition: Poor Dentition Neurological Assessment Level of Consciousness: Awake and Alert Anesthesia Plan Anesthesia Risk discussed: Yes Anesthesia Plan: Verified ASA Class: III Anesthesia Type: Spinal
[2023-10-13] MEDS: CEFAZOLIN SODIUM 2 GM in 0.9 % SODIUM CHLORIDE 100 ML IV (10:50)
--- NOTE | 2023-10-13 12:04 | SUR.OPER ---
breakdown noted between leg folds near perineal area when taking off depend to insert catheter. Vagina was noted to be very red upon assessment. breakdown also noted to left outer ankle, covered with telfa\tegaderm prior to surgery. Red scaly areas noted to both feet, mostly on the left foot. Left leg contracted at femur.
--- NOTE | 2023-10-13 14:08 | EXP.ANES.I ---
[facility] Anesthesia Record Part I Anesthesia Record I Intake, IV Amount: 1,800 Hydration: Adequate Estimated blood loss (mL): 150 Urine output (mL): 500 Blood Pressure: 100/75 SaO2: 99 Pulse Rate: 114 Airway Patency: Patent Respiratory Rate: 12 Temperature: 97.5 F Patient is:: Awake and Stable Stable to PACU at:: 14:04
--- NOTE | 2023-10-13 14:13 | XR_ITS ---
FINAL REPORT CLINICAL HISTORY: orif LEFT FEMUR FINDINGS: FLUOROSCOPY LESS THAN 1 HOUR HISTORY: Fluoroscopy guidance. FINDINGS: Fluoroscopic guidance was provided for left femur ORIF. Two spot films were obtained. A total of 18 seconds of fluoroscopy time were used. DAP: 1.13 mGy IMPRESSION: As above. Reviewed, Interpreted and Dictated by Bobby Parsons III, MD Transcribed by Niki Johnson Authenticated and [facility]
[2023-10-13 14:20] LABS: POC Glucose,Bedside 158 (70-110)
--- NOTE | 2023-10-13 14:30 | EXP.OP.NOTE ---
Date of procedure: 10/13/23 Pre-op Diagnosis:: Left femoral shaft fracture Post-op Diagnosis:: Same Procedure performed:: Open reduction internal fixation left femoral shaft fracture Surgeon:: Ilan Gomez DO AGRICULTURAL ENGINEER:: Wilder Marmolejo Anesthesia: spinal Estimated blood loss (mL): 100 Clinical Note:: Implants Synthes large frag plate and screws Operative findings:: See dictation Operative note:: Patient was identified preoperatively. Left leg marked with yes and my initials. Transferred operative suite given spinal anesthesia. Was then placed in the supine on the operating bed left leg has severe mobility issues with contracture of the knee and long-term contracture secondary to stroke. So with great care we moved her to her right side with the hip positioner in place and the fractured leg up. Left hip and thigh were then prepped and draped normal sterile fashion. Once prepped and draped final operative timeout performed to identify proper patient procedure and extremity. Everyone involved the case agreed. There is no counter indications to beginning. She did receive preoperative antibiotics. Marking pen was used to justice the planned incision over the lateral thigh. Skin knife used to incise through skin IT band was cut in line muscles were split in the fracture site was seen and hematoma evacuated. There was severe comminution at the fracture site and shortening of the femur fracture. Dissection was taken down to expose the fracture site the fracture site was cleaned the bone clamps were placed both proximally and distally and reduction was performed to restore proper rotation of the femur. This was held with the bone clamps preliminary. Plate was selected from the Synthes large frag plate and bent to the appropriate bend of the femur. Screws were placed proximal and distal to the fragment followed by locking screws proximally distal to the fragment. This gave stability in regards to length and rotation of the femur. She is somewhat very osteoporotic on this side secondary to nonweightbearing on the side for a long time. X-ray was brought in to confirm fracture out to length and alignment. Cerclage clamp was placed around the comminution of this fragment posteriorly and laterally. The leg was internally and externally rotated and moved as 1 unit. Copious irrigation wound performed with the Pulsavac. Deep layers closed with Vicryl stitch. Subcutaneous Vicryl prescription. And surgical clips in the skin for closure sterile dressing placed patient waken anesthesia carefully rotated back to supine on her back with pillows placed under legs to allow for protection of the femur fracture. Patient taken recovery in stable condition. Condition: stable Disposition: PACU Complications:: None apparent
[2023-10-13 20:50] LABS: POC Glucose,Bedside 182 (70-110)
[2023-10-13] MEDS: ACETAMINOPHEN 325MG TAB 650 MG PO (21:33)
[2023-10-13 21:52] LABS: POC Glucose,Bedside 167 (70-110)
[2023-10-14] VITALS: TEMP 36.9
[2023-10-14 03:59] VITALS: BP 105/57; PULSE 106; RESP 16; TEMP 36.7; O2SAT 100; BMI 24.8
[2023-10-14 05:15] LABS: POC Glucose,Bedside 151 (70-110)
--- NOTE | 2023-10-14 05:56 | PC.NURSE ---
MEDICATED X 1 WITH MORPHINE FOR PAIN LEFT HIP AT 2137. HAS BEEN AWAKE MOST OF THE SHIFT. DRESSING C/D/I TO SURGICAL SITE.
[2023-10-14 07:56] VITALS: BP 106/80; PULSE 108; RESP 20; TEMP 36.8; O2SAT 92
[2023-10-14] MEDS: PANTOPRAZOLE 40MG TABLET 40 MG PO (09:28)
[2023-10-14] MEDS: DOCUSATE SODIUM 100 MG CAPSULE PO (09:29)
[2023-10-14] MEDS: MORPHINE 2MG/ML SYRINGE 1 MG IV (09:44)
[2023-10-14 11:30] VITALS: BP 114/67; PULSE 112; RESP 18; TEMP 37; O2SAT 90
[2023-10-14 12:22] LABS: POC Glucose,Bedside 169 (70-110)
--- NOTE | 2023-10-14 13:21 | EXP.PN ---
Subjective *Date: 10/14/23 *Time: 13:21 Interval history: seen at bedside, s/p surgery, no complains today Exam Data for Last 24 hours Vital signs and Labs for Last 24 Hours: Temp Pulse Resp BP Pulse Ox O2 Del Method O2 Flow Rate 98.6 F 112 H 18 114/67 90 L Room Air 2 10/14/23 11:30 10/14/23 11:30 10/14/23 11:30 10/14/23 11:30 10/14/23 11:30 10/14/23 11:30 10/13/23 14:14 Laboratory Results - last 24 hr 10/13/23 14:09: POC Glucose 158 H 10/13/23 17:15: POC Glucose 182 H 10/13/23 21:45: POC Glucose 167 H 10/14/23 05:08: POC Glucose 151 H 10/14/23 12:15: POC Glucose 169 H I & O for Last 24 hours: Intake & Output 10/11/23 10/12/23 10/13/23 10/14/23 23:59 23:59 23:59 23:59 Intake Total 360 / 360 2160 / 2400 240 / 240 Output Total 0 / 0 700 / 700 850 / 850 800 / 800 Balance 0 / 0 -340 / -340 1310 / 1550 -560 / -560 Weight 74.843 kg 71.214 kg 70.392 kg 74.389 kg Constitutional Constitutional: no acute distress *Routine HEENT Exam Head: Present normocephalic Eye: Present EOMI and PERRL ENT: Present mucous membranes moist *Routine Neck Exam Neck: Present supple; Absent lymphadenopathy *Routine Respiratory Exam Respiratory: Present CTA bilaterally *Routine Cardiovascular Exam Cardiovascular: Present RRR *Routine Abdominal Exam Abdominal: Present soft and normoactive bowel sounds; Absent tenderness *Routine Extremities Exam Extremities: Present tenderness; Absent cyanosis, clubbing or edema *Routine Skin Exam Skin: Present warm; Absent rash *Routine Neurological Exam Neurological: Present alert and oriented X3 Assessment and Plan *Assessment and plan (1) Femur fracture, left: Status: Acute Qualifiers: Encounter type: initial encounter Femur location: shaft Fracture alignment: displaced Fracture morphology: comminuted Fracture type: closed Qualified Code(s): S72.352A - Displaced comminuted fracture of shaft of left femur, initial encounter for closed fracture Category: Medical Code(s): S72.92XA - Unspecified fracture of left femur, initial encounter for closed fracture (2) History of CVA with residual deficit: Status: Acute Category: Medical Code(s): I69.30 - Unspecified sequelae of cerebral infarction (3) Diabetes: Status: Chronic Qualifiers: Diabetes mellitus type: type 2 Diabetes mellitus penitentiary insulin use: without penitentiary use Diabetes mellitus complication status: without complication Qualified Code(s): E11.9 - Type 2 diabetes mellitus without complications Category: Medical Code(s): E11.9 - Type 2 diabetes mellitus without complications (4) S/P ORIF (open reduction internal fixation) fracture: Status: Acute Category: Surgical Code(s): Z98.890 - Other specified postprocedural states; Z87.81 - Personal history of (healed) traumatic fracture (5) Smoking greater than 30 pack years: Status: Acute Category: Social Hx Code(s): F17.210 - Nicotine dependence, cigarettes, uncomplicated Plan 62 yo F resident at [facility], with PMHx of of bilateral ORIF of hip,CVA with chronic contracture of the left side of her body, COPD, diabetes that came to ED for evaluation of left hip pain after falling out of her wheelchair. On arrival patient underwent Xray femur and hip as well as CT that showed Mildly comminuted mildly displaced mid to distal femoral shaft spiral fracture. Labs are grossly unremarkable. Findings discussed with ER for admission. Plan as follow: -Mildly displaced femoral fracture, status post fall: Orthopedic consult plan for surgery today NPO after MN will likely need SNF Pain management. Tylenol and morphine as needed -History of CVA, with left-sided weakness Continue monitor PT OT after surgery -History of diabetes: Resume home regimen of insulin Accu-Chek before meals On sliding scale -Status post bilateral ORIF: Chronic pain management Reconcile and resume home regimen -Smoking greater than 30-year with COPD changes: Maximize O2 saturation prior to surgery Home albuterol ,SCD for DVT prophylaxis, Protonix for GI bleeding protection Full code Await ortho procedure today, may need SNF, PT/OT - likely dc tomorrow
--- NOTE | 2023-10-14 13:27 | EXP.DC.SUM ---
General Admission date:: 10/11/23 Discharge date: 10/14/23 HPI HPI HPI: This is a 62 yo F resident at [facility], with PMHx of of bilateral ORIF of hip,CVA with chronic contractures of the left side of her body, COPD, diabetes that came to ED for evaluation of left hip pain after falling out of her wheelchair. History obtained form ER documentation, nursing staff report. Patient and staff report that pt slid out of wheelchair, complains of left hip pain. pt does have hx of fractures. Admitted for further work up and management. Workup in the emergency room did show left midshaft femur fracture orthopedics consulted for treatment options. Of note patient is nonambulatory because of previous fractures and contractures and stroke. Hospital Course Hospital Course Hospital Course: see same date progress note Exam Data for Last 24 hours Vital signs and Labs for Last 24 Hours: Temp Pulse Resp BP Pulse Ox O2 Del Method O2 Flow Rate 98.6 F 112 H 18 114/67 90 L Room Air 2 10/14/23 11:30 10/14/23 11:30 10/14/23 11:30 10/14/23 11:30 10/14/23 11:30 10/14/23 11:30 10/13/23 14:14 Laboratory Results - last 24 hr 10/13/23 14:09: POC Glucose 158 H 10/13/23 17:15: POC Glucose 182 H 10/13/23 21:45: POC Glucose 167 H 10/14/23 05:08: POC Glucose 151 H 10/14/23 12:15: POC Glucose 169 H I & O for Last 24 hours: Intake & Output 10/11/23 10/12/23 10/13/23 10/14/23 23:59 23:59 23:59 23:59 Intake Total 360 / 360 2160 / 2400 240 / 240 Output Total 0 / 0 700 / 700 850 / 850 800 / 800 Balance 0 / 0 -340 / -340 1310 / 1550 -560 / -560 Weight 74.843 kg 71.214 kg 70.392 kg 74.389 kg Results Data Completed and Pending Labs on day of discharge: Labs from last 24 hours 10/14/23 10/14/23 10/13/23 12:15 05:08 21:45 POC Glucose 169 H 151 H 167 H 10/13/23 10/13/23 17:15 14:09 POC Glucose 182 H 158 H DS: Diagnosis Discharge Diagnosis (1) Femur fracture, left: Status: Acute Code(s): S72.92XA - Unspecified fracture of left femur, initial encounter for closed fracture Qualifiers: Encounter type: initial encounter Femur location: shaft Fracture alignment: displaced Fracture morphology: comminuted Fracture type: closed Qualified Code(s): S72.352A - Displaced comminuted fracture of shaft of left femur, initial encounter for closed fracture (2) History of CVA with residual deficit: Status: Acute Code(s): I69.30 - Unspecified sequelae of cerebral infarction (3) Diabetes: Status: Chronic Code(s): E11.9 - Type 2 diabetes mellitus without complications Qualifiers: Diabetes mellitus type: type 2 Diabetes mellitus longterm insulin use: without longterm use Diabetes mellitus complication status: without complication Qualified Code(s): E11.9 - Type 2 diabetes mellitus without complications (4) S/P ORIF (open reduction internal fixation) fracture: Status: Acute Code(s): Z98.890 - Other specified postprocedural states; Z87.81 - Personal history of (healed) traumatic fracture (5) Smoking greater than 30 pack years: Status: Acute Code(s): F17.210 - Nicotine dependence, cigarettes, uncomplicated Meds Home Medications and Allergies Home Medications Medication Instructions Recorded Confirmed Type acetaminophen 500 mg capsule 500 mg PO Q4HP PRN PAIN 09/14/21 10/11/23 History insulin syringe-needle U-100 1 mL #10 ea 03/22/22 10/11/23 History 29 gauge x 1/2 albuterol sulfate 90 mcg/actuation 1 inh inhalation QID PRN shortness 09/22/23 10/11/23 Rx aerosol inhaler of breath or wheezing #8.5 grams hydrocodone 10 mg-acetaminophen 1 tab PO TID Pain #90 tabs 09/22/23 10/11/23 Rx 325 mg tablet lactulose 10 gram/15 mL (15 mL) 30 ml PO DAILY PRN Constipation 09/22/23 10/11/23 History oral solution loperamide 2 mg capsule 2 mg PO Q6H PRN loose stool 09/22/23 10/11/23 History metformin 500 mg tablet 500 mg PO BID 09/22/23 10/11/23 History polyethylene glycol 3350 17 gram 17 g PO DAILY PRN Constipation 09/22/23 10/11/23 History oral powder packet pregabalin 100 mg capsule (Lyrica) 100 mg PO TID #90 caps 09/22/23 10/11/23 Rx Saccharomyces boulardii 250 mg 250 mg PO DAILY 09/29/23 10/11/23 History capsule (Daily Probiotic (S. boulardii)) arginine (L-arginine) 500 mg tablet 1,000 mg PO BID 09/29/23 10/11/23 History ascorbate calcium (vitamin C) 500 500 mg PO BID 09/29/23 10/11/23 History mg tablet cyclobenzaprine 10 mg tablet 10 mg PO TID 09/29/23 10/12/23 History insulin glargine 100 unit/mL (3 14 unit SQ HS 09/29/23 10/11/23 History mL) subcutaneous pen (Lantus Solostar U-100 Insulin) ipratropium 0.5 mg-albuterol 3 mg 3 ml inhalation Q6H PRN Shortness 09/29/23 10/11/23 History (2.5 mg base)/3 mL nebulization Of Breath soln multivitamin 1 tab PO DAILY 09/29/23 10/11/23 History ondansetron 4 mg disintegrating 4 mg PO Q8H PRN Nausea And Vomiting 09/29/23 10/11/23 History tablet venlafaxine 75 mg capsule,extended 75 mg PO DAILY 09/29/23 10/11/23 History release 24 hr sennosides 8.6 mg tablet (Natural 17.2 mg PO DAILY 10/12/23 10/11/23 History Senna Laxative) New Prescriptions to Start Prescriptions: Allergies Allergy/AdvReac Type Severity Reaction Status Date / Time codeine Allergy Unknown Verified 10/11/23 17:12 Sulfa (Sulfonamide Allergy Unknown Verified 10/11/23 17:12 Antibiotics) Discharge Plan Disposition Patient Disposition: er SNF Condition: Good Discharge Order Discharge Orders: Discharge Order (Routine); Ordered 10/14/23 Ordered By: Alexis Sahni Follow up Plan Follow up with: Ilan Gomez DO [Staff Physician] - 2 weeks Prescriptions/Medication Reconciliation: Continued acetaminophen 500 mg capsule 500 mg PO Q4HP PRN (Reason: PAIN) (DME) insulin syringe-needle U-100 1 mL 29 gauge x 1/2 syringe See Rx Instructions .ROUTE .MEDSUPPLY Qty: 10 Rx Instructions: As directed albuterol sulfate 90 mcg/actuation HFA aerosol inhaler 1 inh inhalation QID PRN (Reason: shortness of breath or wheezing) Qty: 8.5 12RF lactulose 10 gram/15 mL (15 mL) solution 30 ml PO DAILY PRN (Reason: Constipation) loperamide 2 mg capsule 2 mg PO Q6H PRN (Reason: loose stool) polyethylene glycol 3350 17 gram powder in packet 17 g PO DAILY PRN (Reason: Constipation) hydrocodone-acetaminophen 10-325 mg tablet 1 tab PO TID Qty: 90 0RF pregabalin [Lyrica] 100 mg capsule 100 mg PO TID Qty: 90 5RF metformin 500 mg tablet 500 mg PO BID ipratropium-albuterol 0.5 mg-3 mg(2.5 mg base)/3 mL solution for nebulization 3 ml inhalation Q6H PRN (Reason: Shortness Of Breath) ondansetron 4 mg tablet,disintegrating 4 mg PO Q8H PRN (Reason: Nausea And Vomiting) cyclobenzaprine 10 mg tablet 10 mg PO TID arginine (L-arginine) 500 mg tablet 1,000 mg PO BID insulin glargine [Lantus Solostar U-100 Insulin] 100 unit/mL (3 mL) insulin pen 14 unit SQ HS Saccharomyces boulardii [Daily Probiotic (S. boulardii)] 250 mg capsule 250 mg PO DAILY multivitamin Tablet 1 tab PO DAILY venlafaxine 75 mg capsule,extended release 24hr 75 mg PO DAILY ascorbate calcium (vitamin C) 500 mg tablet 500 mg PO BID sennosides [Natural Senna Laxative] 8.6 mg tablet 17.2 mg PO DAILY Problem Reconciliation Problems Reviewed?: Yes Patient Discharge Instructions ACTIVITY: Ambulate as tolerated DIET: advance to your usual diet Patient Instructions: DI for Femoral Fracture, DI for Surgical Site Infection Providers Primary Care Provider: Provider,Referral Admit Provider: Alexis Sahni Attending Provider: Alexis Sahni
--- NOTE | 2023-10-14 15:54 | P.PN_ITS ---
Subjective *Date: 10/14/23 *Time: 15:54 Interval history: Patient doing reasonly well. In the bed. Pain controlled. Ortho Exam (Inpt) Vital signs and Labs for Last 24 Hours: Temp Pulse Resp BP Pulse Ox O2 Del Method O2 Flow Rate 98.6 F 112 H 18 114/67 90 L Room Air 2 10/14/23 11:30 10/14/23 11:30 10/14/23 11:30 10/14/23 11:30 10/14/23 11:30 10/14/23 11:30 10/13/23 14:14 Laboratory Results - last 24 hr 10/13/23 17:15: POC Glucose 182 H 10/13/23 21:45: POC Glucose 167 H 10/14/23 05:08: POC Glucose 151 H 10/14/23 12:15: POC Glucose 169 H I & O for Labs for Last 24 Hours: Intake & Output 10/11/23 10/12/23 10/13/23 10/14/23 23:59 23:59 23:59 23:59 Intake Total 360 / 360 2160 / 2400 240 / 240 Output Total 0 / 0 700 / 700 850 / 850 800 / 800 Balance 0 / 0 -340 / -340 1310 / 1550 -560 / -560 Weight 165 lb 157 lb 155 lb 3 oz 164 lb Findings:: Left thigh dressing clean dry and intact. Compartments soft. Grossly neurovascular intact Assessment and Plan *Assessment and plan (1) Femur fracture, left: Problem Comment: Status post open reduction internal fixation Status: Acute Qualifiers: Encounter type: initial encounter Femur location: shaft Fracture alignment: displaced Fracture morphology: comminuted Fracture type: closed Qualified Code(s): S72.352A - Displaced comminuted fracture of shaft of left femur, initial encounter for closed fracture Category: Medical Code(s): S72.92XA - Unspecified fracture of left femur, initial encounter for closed fracture Plan [facility]. Daily dressing changes. She will return to clinic in 12-14 days. Nonweightbearing left lower extremity Significant care given during transfers to make sure leg rotates as 1 unit.
--- NOTE | 2023-10-14 16:44 | HMH.PTEV ---
Physical Therapy Evaluation Rehab PT IP Evaluation Start: 10/14/23 13:15 Freq: ONCE Status: Discharge Protocol: Document 10/14/23 16:22 PDESEROUX (Rec: 10/14/23 16:44 PDESEROUX [id number]) Subjective/History History History Pt. is a 62 year old female w/ a PMH of B/L ORIF of hip, CVA w/ chronic contractures of LUE/LLE, COPD, and diabetes that presents to [facility] Inpatient floor S/P LLE hip ORIF femoral shaft fracture on 03/01. Pt. reports being admitted to [facility] from [facility] secondary to concern of the [facility] staff of a fx. after sliding out of her W/C. Pt. reports predominantly W/C bound secondary to PMH. Subjective Subjective Pt. was awake in supine position in hospital bed upon entry into pt.'s room after being given to okay by pt. to enter. Pt. was a fair historian this date. Pt.'s pain presentation to be well managed, however, had increased facial grimmacing and grunts w/ activity. Pt. refused bed mobility transfer secondary to increase in P!. Pt. was left awake and supine in hospital bed w/ call light in reach upon exiting pt.'s room. New diagnosis of cancer in past 12 No months? Rehab PT IP Eval Objective Appearance Patient Behavior Guarded,Suspicious, Distractible,Wandering,Patient Baseline Patient Orientation Patient Baseline Difficulty following instructions moderate Speech Pattern Delayed,Soft-Spoken,Patient Baseline Ambulation Patient Able to Ambulate No Balance Ability to Arise Unable ROM LLE PT ROM Status ABN RLE PT ROM Status WFL MMT LLE PT MMT ABN RLE PT MMT WFL Rehab PT IP prob,goals,plan Problems Date of Evaluation: 10/14/23 Rehab Potential Rehab Potential Good Equipment Needs Assistive Devices Wheelchair Plan PT Intervention Plan Bed Mobility,Transfers, Therapeutic Exercise Discharge Goals Bed Transfer Ability Maximum x 1 (75% assist),Total /Dependent (100%) Sit to Stand Chair Transfer Ability Maximum x 1 (75% assist),Total /Dependent (100%) Ambulation Assistive Device None Discharge Plan PT Discharge Plan Upon discharge from [facility], once medically stable per MD, pt. to be discharged back to [facility] for additional Physical Therapy Services to improved LLE hip muscle strength and ROM to improve quality of life. Eval Complexity Eval Charge Codes 17284 - Low Complexity PHYSICIAN CERTIFICATION: I certify the specified therapy services for Giovana Pantoja are required, authorized, and reviewed every 30 days.
--- NOTE | 2023-10-16 07:35 | EXP.ANES.II ---
[facility] Anesthesia Record Part II Anesthesia Record Part II Discharge Time: 14:24 Destination: Medical Surgical Department PACU nurse assessment reviewed?: Yes Patient Condition:: Good Anesthesia Complications:: None Swallowing reflex intact?: Yes Airway Patency: Patent Cyanosis?: No Blood Pressure: 99/58 SaO2: 96 Respiratory Rate: 16 Pulse Rate: 97 Temperature: 97.4 F Mental Status: Alert & Oriented Pain level:: 0 Nausea and/or vomitting:: None Intake, IV Amount: 1,500 Hydration: Adequate
[2023-10-16 07:39] VITALS: BP 99/58; PULSE 97; RESP 16; TEMP 36.3; O2SAT 96
== END 2023-10-14 16:29 | DRG 481 ==
LOC: ER 19:15 → 2ND 10-12 02:48
PROVIDERS: Nurse Practitioner Family; Orthopaedic Surgery; Admitting Provider Internal Medicine; Emergency Provider Student in an Organized Health Care Education/Training Program; Visit Provider Internal Medicine
PROC: 0QS904Z Reposition Left Femoral Shaft with Internal Fixation Device, Open Approach (ICD-10-PCS; principal; 2023-10-13 11:15)
DX: S72.352A Displaced comminuted fracture of shaft of left femur, initial encounter for closed fracture (principal); I69.354 Hemiplegia and hemiparesis following cerebral infarction affecting left non-dominant side; W05.0XXA Fall from non-moving wheelchair, initial encounter; E11.9 Type 2 diabetes mellitus without complications; J44.9 Chronic obstructive pulmonary disease, unspecified; F17.210 Nicotine dependence, cigarettes, uncomplicated; F39 Unspecified mood [affective] disorder; Z79.4 Long term (current) use of insulin; I69.398 Other sequelae of cerebral infarction; M24.59 Contracture, other specified joint
CPT/HCPCS: 27507; 36415; 73502; 73551; 73552; 73700; 76000; 80048; 80053; 82962; 83735; 85025; 85610; 87086; 96374; 97161; 99285; C1713; C1776; J2405; J2704

== ENCOUNTER 2023-10-31 12:56 | Outpatient (CLI) | payer MEDICARE, MEDICAID, SELFPAY ==
--- NOTE | 2023-10-31 13:03 | XR_ITS ---
FINAL REPORT CLINICAL HISTORY: lt hip pain COMPARISON: 10/11/2023 FINDINGS: LEFT HIP: Multiple views of the left hip reveal intramedullary arvind in the proximal femur as well as a orthopedic screw in the femoral neck. There is a new long orthopedic plate with screws and a cerclage wire bridging a fracture of the left femoral diaphysis. The orthopedic long plate and screws are new since the prior film. Vascular calcifications are present. IMPRESSION Proximal femoral hardware as described involving the left femoral neck and proximal femur. New long plate orthopedic device and screws bridging a left femoral diaphyseal fracture, when compared to the prior films of October 11. No new fracture or dislocation is identified. Reviewed, Interpreted and Dictated by Cb Crews MD Transcribed by Vanessa Ledesma Authenticated and . [facility]
== END 2023-10-31 23:59 ==
LOC: RAD 12:58
PROVIDERS: PCP Internal Medicine; Visit Provider Orthopaedic Surgery
DX: M25.552 Pain in left hip (principal)
CPT/HCPCS: 73502

== ENCOUNTER 2023-11-14 15:51 | Outpatient (CLI) | payer MEDICARE, MEDICAID, SELFPAY | END 2023-11-14 23:59 | PROVIDERS: PCP Internal Medicine; Visit Provider Internal Medicine | DX: M25.572 Pain in left ankle and joints of left foot (principal); S91.002A Unspecified open wound, left ankle, initial encounter; B96.4 Proteus (mirabilis) (morganii) as the cause of diseases classified elsewhere | CPT/HCPCS: 87070; 87205 ==

== ENCOUNTER 2023-11-28 10:56 | Outpatient (CLI) | payer MEDICARE, MEDICAID, SELFPAY ==
--- NOTE | 2023-11-28 11:00 | XR_ITS ---
FINAL REPORT TECHNIQUE: Multiple views left femur CLINICAL HISTORY: fracture COMPARISON: 10/31/2023 FINDINGS: LEFT FEMUR: There is an intramedullary arvind in the right femur, also seen on a prior exam of October. There is a sideplate and screws present bridging a fracture of the mid portion of the femoral diaphysis. This was also seen on the prior exam. The fracture lines in the mid and distal diaphysis remain visible, and given slight differences in technique are not significantly changed since the prior exam. IMPRESSION: IM arvind in the proximal femur, and sideplate and screws bridging a femoral distal diaphyseal fracture, stable since the prior exam of October 31. Reviewed, Interpreted and Dictated by Cb Crews MD Transcribed by Vanessa Ledesma Authenticated and [facility]
== END 2023-11-28 23:59 ==
PROVIDERS: PCP Internal Medicine; Visit Provider Orthopaedic Surgery
DX: S72.352A Displaced comminuted fracture of shaft of left femur, initial encounter for closed fracture
CPT/HCPCS: 73552

== ENCOUNTER 2023-12-06 10:35 | Outpatient (CLI) | payer MEDICARE, MEDICAID, SELFPAY ==
--- NOTE | 2023-12-06 10:51 | CT_ITS ---
FINAL REPORT TECHNIQUE: Thin section axial images were obtained through the lungs using a low-dose technique per lung cancer screening protocol. Reconstruction images were obtained using the axial data. Exam was performed using dose reduction technique. CLINICAL HISTORY: lung cancer screening. Smokes 1 pack per day x54 yrs. Family hx of lung cancer in father and grandfather. Exposed to second hand smoke. COMPARISON: 10/17/2022 FINDINGS: CTDLvol: 2.9 DLP: 98.73 63-year-old female, current smoker 54 pack year history Lungs: No acute pulmonary abnormality. There is a 4 mm left lower lobe nodule seen on image #48, stable and now calcified. There are several right lower lobe nodules present all less than 5 mm in size, also stable. There is a 5 mm nodule, stable, noted on image #30. No new nodules are identified. Lymph nodes: No thoracic lymphadenopathy. Mediastinum: Heart size is normal. Severe coronary artery calcifications are present. Pleura/pericardium: No pleural or pericardial effusion. Other: No acute abnormality in the upper abdomen. IMPRESSION: Multiple stable nodules, with no new nodules identified. Severe coronary artery disease, responsible for the S designation. Lung RADS: 2S Recommendation: 12-month follow-up LDCT Reviewed, Interpreted and Dictated by Angelika Pennington MD Transcribed by Vanessa Ledesma Authenticated and [facility]
== END 2023-12-06 23:59 ==
PROVIDERS: PCP Internal Medicine; Visit Provider Internal Medicine Pulmonary Disease
DX: F17.210 Nicotine dependence, cigarettes, uncomplicated (principal)
CPT/HCPCS: 71271

== ENCOUNTER 2024-01-16 09:55 | Outpatient (CLI) | payer MEDICARE, MEDICAID, SELFPAY ==
--- NOTE | 2024-01-16 10:05 | XR_ITS ---
FINAL REPORT CLINICAL HISTORY: lt femur fx COMPARISON: 11/28/2023 FINDINGS: Three views of the left femur were obtained. There are postoperative changes in the proximal and distal femur from ORIF. There is a fracture of the distal femoral diaphysis with screw plate and multiple screws. There are moderate degenerative changes. There is no acute soft tissue abnormality. IMPRESSION: Postoperative changes proximal and distal femur. Fracture distal femur. Stable findings. Reviewed, Interpreted and Dictated by Bobby Parsons III, MD Transcribed by Niki Johnson Authenticated and [facility]
== END 2024-01-16 23:59 ==
LOC: RAD 09:56
PROVIDERS: PCP Internal Medicine; Visit Provider Orthopaedic Surgery
DX: S72.302A Unspecified fracture of shaft of left femur, initial encounter for closed fracture (principal)
CPT/HCPCS: 73552

== ENCOUNTER 2024-02-04 22:52 | Emergency (ER) | payer MEDICARE, MEDICAID, SELFPAY ==
[2024-02-04 22:55] VITALS: BP 102/61; PULSE 93; RESP 18; TEMP 36.4; O2SAT 96; BMI 24.1
--- NOTE | 2024-02-04 23:17 | ED_ITS ---
Discharge Plan Disposition Patient Disposition: Home, Self-Care Prescriptions Prescriptions: No Action acetaminophen 500 mg capsule 500 mg PO Q4HP PRN (Reason: PAIN) (DME) insulin syringe-needle U-100 1 mL 29 gauge x 1/2 syringe See Rx Instructions .ROUTE .MEDSUPPLY Qty: 10 Rx Instructions: As directed albuterol sulfate 90 mcg/actuation HFA aerosol inhaler 1 inh inhalation QID PRN (Reason: shortness of breath or wheezing) Qty: 8.5 12RF lactulose 10 gram/15 mL (15 mL) solution 30 ml PO DAILY PRN (Reason: Constipation) loperamide 2 mg capsule 2 mg PO Q6H PRN (Reason: loose stool) polyethylene glycol 3350 17 gram powder in packet 17 g PO DAILY PRN (Reason: Constipation) metformin 500 mg tablet 500 mg PO BID ipratropium-albuterol 0.5 mg-3 mg(2.5 mg base)/3 mL solution for nebulization 3 ml inhalation Q6H PRN (Reason: Shortness Of Breath) ondansetron 4 mg tablet,disintegrating 4 mg PO Q8H PRN (Reason: Nausea And Vomiting) cyclobenzaprine 10 mg tablet 10 mg PO TID arginine (L-arginine) 500 mg tablet 1,000 mg PO BID insulin glargine [Lantus Solostar U-100 Insulin] 100 unit/mL (3 mL) insulin pen 14 unit SQ HS Saccharomyces boulardii [Daily Probiotic (S. boulardii)] 250 mg capsule 250 mg PO DAILY multivitamin Tablet 1 tab PO DAILY venlafaxine 75 mg capsule,extended release 24hr 75 mg PO DAILY ascorbate calcium (vitamin C) 500 mg tablet 500 mg PO BID pregabalin [Lyrica] 100 mg capsule 100 mg PO TID Qty: 90 5RF Prolia 60 mg/mL syringe 60 mg SQ [id number] Qty: 1 2RF hydrocodone-acetaminophen 10-325 mg tablet 1 tab PO QID Qty: 120 0RF sennosides [Natural Senna Laxative] 8.6 mg tablet 17.2 mg PO DAILY Referrals Follow up/Referrals: Provider,Referral, MD [Primary Care Provider] - See instructions Activity Restrictions/Add. Instructions Additional Instructions/Restrictions: Please follow-up with your primary care provider. Please return to the emergency department if you develop any new or worsening symptoms or become concerned for your health. Clinical Impressions Clinical Impression: Fall, Encounter for medical assessment Discharge ED Provider: James Gastelum General Adult HPI General Chief complaint: Fall Stated complaint: Fall Time Seen by Provider: 02/04/24 23:00 Mode of Arrival: EMS Source of Information: Patient and EMS Limitations: No Limitations Description of Symptoms (Recalled from ER Triage Doc. by RN): pt states she slid out of bed on her R side. pt reports that she is not in any pain and no LOC. History of Present Illness HPI narrative: 63-year-old female, snf resident, history of COPD presents from nursing facility after she slid out of bed. She reports that she slid onto her right side. She did not fall, did not hit her head, did not lose consciousness. She is alert and oriented and reports no pain of any kind. She is unable to ambulate at baseline due to a fracture of her left lower extremity within the last couple of years. She reports that she does not feel that she needs to be here and thinks the snf is covering their ass. Related Data Home Medications Medication Instructions Recorded Confirmed acetaminophen 500 mg capsule 500 mg PO Q4HP PRN PAIN 09/14/21 01/16/24 insulin syringe-needle U-100 1 mL #10 ea 03/22/22 01/16/24 29 gauge x 1/2 lactulose 10 gram/15 mL (15 mL) 30 ml PO DAILY PRN Constipation 09/22/23 01/16/24 oral solution loperamide 2 mg capsule 2 mg PO Q6H PRN loose stool 09/22/23 01/16/24 metformin 500 mg tablet 500 mg PO BID 09/22/23 01/16/24 polyethylene glycol 3350 17 gram 17 g PO DAILY PRN Constipation 09/22/23 01/16/24 oral powder packet Saccharomyces boulardii 250 mg 250 mg PO DAILY 09/29/23 01/16/24 capsule (Daily Probiotic (S. boulardii)) arginine (L-arginine) 500 mg tablet 1,000 mg PO BID 09/29/23 01/16/24 ascorbate calcium (vitamin C) 500 500 mg PO BID 09/29/23 01/16/24 mg tablet cyclobenzaprine 10 mg tablet 10 mg PO TID 09/29/23 01/16/24 insulin glargine 100 unit/mL (3 14 unit SQ HS 09/29/23 01/16/24 mL) subcutaneous pen (Lantus Solostar U-100 Insulin) ipratropium 0.5 mg-albuterol 3 mg 3 ml inhalation Q6H PRN Shortness 09/29/23 01/16/24 (2.5 mg base)/3 mL nebulization Of Breath soln multivitamin 1 tab PO DAILY 09/29/23 01/16/24 ondansetron 4 mg disintegrating 4 mg PO Q8H PRN Nausea And Vomiting 09/29/23 01/16/24 tablet venlafaxine 75 mg capsule,extended 75 mg PO DAILY 09/29/23 01/16/24 release 24 hr sennosides 8.6 mg tablet (Natural 17.2 mg PO DAILY 10/12/23 01/16/24 Senna Laxative) Previous Rx's Medication Instructions Recorded albuterol sulfate 90 mcg/actuation 1 inh inhalation QID PRN shortness 09/22/23 aerosol inhaler of breath or wheezing #8.5 grams pregabalin 100 mg capsule (Lyrica) 100 mg PO TID #90 caps 12/21/23 denosumab 60 mg/mL subcutaneous 60 mg SQ [id number] Osteoporosis #1 01/09/24 syringe (Prolia) mL hydrocodone 10 mg-acetaminophen 1 tab PO QID Pain #120 tabs 01/30/24 325 mg tablet Allergies Allergy/AdvReac Type Severity Reaction Status Date / Time codeine Allergy Unknown Verified 01/16/24 11:17 Sulfa (Sulfonamide Allergy Unknown Verified 01/16/24 11:17 Antibiotics) [facility] Disclaimer: The information contained in this section may have been updated after the patient was seen, as this information can be updated by other users. Medical History COPD mixed type History of CVA with residual deficit Femur fracture, left Status post open reduction internal fixation Hemiplegia and hemiparesis following cerebral infarction affecting left non-dominant side Epileptic seizures related to external causes, not intractable, without status epilepticus Mood disorder due to known physiological condition, unspecified Closed fracture of shaft of right fibula Closed fracture of shaft of right tibia Closed fracture of lower leg Esophagitis Smoking greater than 30 pack years Lung nodule Screening for lung cancer History of smoking 30 or more pack years History of 2019 novel coronavirus disease (COVID-19) Pulmonary emphysema Dyspnea on exertion Closed fracture of lateral portion of left tibial plateau Pain in left leg Postoperative follow-up TIA (transient ischemic attack) Lung disease Pneumonia due to COVID-19 virus E. coli UTI (urinary tract infection) COVID Injury of knee, right History of CVA (cerebrovascular accident) Hyperlipidemia Diabetes Pre-operative cardiovascular examination Fracture, metacarpal Closed right hip fracture Pyelonephritis Surgical History History of surgery on lower extremity History of section S/P ORIF (open reduction internal fixation) fracture Family History Other Emphysema of lung Femur fracture, left Lung cancer Social History Smoking Status: Current every day smoker tobacco type: cigarettes packs per day: 1 alcohol intake: never substance use type: denies use current occupational status: disabled Travel in the last 8 weeks: None housing: assisted living facility caffeine: Yes ROS Obtained: Yes All systems reviewed & no additional complaints except as documented Physical Exam General General appearance: alert and in no apparent distress Head Head exam: atraumatic and normocephalic Eye Eye exam: Present normal appearance, PERRL and EOMI ENT ENT exam: Present normal oropharynx and normal external ear exam Neck Neck exam: Present normal inspection, full ROM and other (No midline C-spine tenderness, full range of motion intact without pain.) Chest Chest inspection: Present normal inspection and symmetric chest wall rise; Absent tenderness Respiratory Respiratory exam: Present normal lung sounds bilaterally; Absent respiratory distress Cardiovascular Cardiovascular exam: Present regular rate and normal rhythm Abdominal Exam Abdominal exam: Present soft; Absent distention, tenderness or guarding Extremities Exam Extremities exam: Present other (No tenderness to palpation or deformity of the bilateral upper and lower extremities. Pelvis is stable without pain. Patient is chronically retracted in her left leg due to prior fracture, no new pain or tenderness.) Back Exam Back exam: Present normal inspection; Absent tenderness Neurological Exam Neurological exam: Present alert and oriented X3; Absent motor sensory deficit Psychiatric Psychiatric exam: Present normal affect and normal mood Skin Skin exam: Present warm, dry and normal color Lymphatic Lymphatic Findings: no adenopathy Medical Decision Making Medical Records Medical records reviewed: Yes I reviewed the patient's medical records. Marquise Inquiry Pt receiving controlled substance: No Marquise was queried for this patient: No Vital Signs: 02/04/24 22:55 Temperature 97.6 F Temperature Source Oral Pulse Rate [Left] 93 H Respiratory Rate 18 Blood Pressure [Right Arm] 102/61 L Blood Pressure Mean [Right Arm] 74 Blood Pressure Source [Right Arm] Automatic Cuff Blood Pressure Position [Right Arm] Sitting 02 Sat by Pulse Oximetry 96 Lab Data Lab results reviewed: Yes I reviewed the patient's lab results. Medical Decision Narrative: 63-year-old female with history as reported above presents from nursing facility after she slid out of bed, did not sustain any trauma. Differential diagnosis include but limited to intracranial trauma intrathoracic trauma intra-abdominal trauma spine trauma extremity trauma. Radiographs and full trauma CT scans were considered, but due to low mechanism, no evidence of trauma on exam, well- appearing patient without pain, these were not felt to be indicated at this time. Patient was discharged in stable condition back to nursing facility. Return precautions given. Procedures Risk/Benefits of Procedure(s) Were Explained: Yes Critical Care Critical Care Time Critical Care Time: No
--- NOTE | 2024-02-05 00:12 | PC.NURSE ---
Report called to Twyla; pts nurse at [facility] [facility]
[2024-02-05 00:13] VITALS: BP 105/61; PULSE 93; RESP 16; TEMP 36.4
== END 2024-02-05 00:33 | disposition home or self-care (01) ==
PROVIDERS: Emergency Provider Emergency Medicine
DX: Z04.3 Encounter for examination and observation following other accident (principal); W06.XXXA Fall from bed, initial encounter
CPT/HCPCS: 99281

== ENCOUNTER 2024-03-11 19:15 | Emergency (ER) | payer MEDICARE, MEDICAID, SELFPAY ==
[2024-03-11 19:15] VITALS: BP 124/60; PULSE 95; RESP 20; TEMP 36.9; O2SAT 92; BMI 24.3
--- NOTE | 2024-03-11 19:19 | CT_ITS ---
PROCEDURE INFORMATION: Exam: CT Chest Without Contrast; Diagnostic Exam date and time: 03/11/2024 7:42 PM Age: 63 years old Clinical indication: Injury or trauma; Fall; Blunt trauma (contusions or hematomas); Additional info: Hurt left ribs after fall in wheelchair TECHNIQUE: Imaging protocol: Diagnostic computed tomography of the chest without contrast. Radiation optimization: All CT scans at this facility use at least one of these dose optimization techniques: automated exposure control; mA and/or kV adjustment per patient size (includes targeted exams where dose is matched to clinical indication); or iterative reconstruction. COMPARISON: CT LUNG SCREENING 12/06/2023 11:10 AM FINDINGS: Lungs: Mild atelectasis. No consolidation. Stable pulmonary nodules. No masses. Pleural spaces: No pneumothorax. No pleural effusion. Heart: No cardiomegaly. No pericardial effusion. Coronary arteries: Coronary artery calcifications. Lymph nodes: No enlarged lymph nodes. Vasculature: Mild atherosclerosis No aortic aneurysm. Diaphragm: Hiatal hernia. Bones/joints: Nondisplaced left lateral and left posterolateral 6th rib fractures. Mildly displaced left posterolateral 7th and 8th rib fractures. Multiple old left-sided rib fractures. Chronic T9, T11 and T12 compression deformities. Soft tissues: Unremarkable. IMPRESSION: 1. No acute posttraumatic findings within the chest within the limits of this noncontrast exam. 2. Nondisplaced left lateral and left posterolateral 6th rib fractures. Mildly displaced left posterolateral 7th and 8th rib fractures.
--- NOTE | 2024-03-11 19:24 | ED_ITS ---
Discharge Plan Disposition Patient Disposition: Xfer Short-Term Hosp Chief Complaint: Fall Prescriptions Prescriptions: No Action (DME) insulin syringe-needle U-100 1 mL 29 gauge x 1/2 syringe See Rx Instructions .ROUTE .MEDSUPPLY Qty: 10 Rx Instructions: As directed albuterol sulfate 90 mcg/actuation HFA aerosol inhaler 1 inh inhalation QID PRN (Reason: shortness of breath or wheezing) Qty: 8.5 12RF lactulose 10 gram/15 mL (15 mL) solution 30 ml PO DAILY PRN (Reason: Constipation) loperamide 2 mg capsule 2 mg PO Q6H PRN (Reason: loose stool) polyethylene glycol 3350 17 gram powder in packet 17 g PO DAILY PRN (Reason: Constipation) metformin 500 mg tablet 500 mg PO BID ipratropium-albuterol 0.5 mg-3 mg(2.5 mg base)/3 mL solution for nebulization 3 ml inhalation Q6H PRN (Reason: Shortness Of Breath) ondansetron 4 mg tablet,disintegrating 4 mg PO Q8H PRN (Reason: Nausea And Vomiting) cyclobenzaprine 10 mg tablet 10 mg PO TID arginine (L-arginine) 500 mg tablet 1,000 mg PO BID Saccharomyces boulardii [Daily Probiotic (S. boulardii)] 250 mg capsule 250 mg PO DAILY multivitamin Tablet 1 tab PO DAILY venlafaxine 75 mg capsule,extended release 24hr 75 mg PO DAILY ascorbate calcium (vitamin C) 500 mg tablet 500 mg PO BID pregabalin [Lyrica] 100 mg capsule 100 mg PO TID Qty: 90 5RF Prolia 60 mg/mL syringe 60 mg SQ [id number] Qty: 1 2RF insulin glargine [Basaglar KwikPen U-100 Insulin] 100 unit/mL (3 mL) insulin pen 14 unit SQ HS Qty: 15 11RF megestrol 400 mg/10 mL (10 mL) suspension 400 mg PO DAILY Qty: 1000 2RF hydrocodone-acetaminophen 10-325 mg tablet 1 tab PO QID Qty: 120 0RF sennosides [Natural Senna Laxative] 8.6 mg tablet 17.2 mg PO DAILY Referrals Follow up/Referrals: Luis Donis DO [Primary Care Provider] - See instructions Clinical Impressions Clinical Impression: Closed fracture of multiple ribs of left side Discharge ED Provider: Hernan Tompkins General Adult HPI General Chief complaint: Fall Stated complaint: fall from wheelchair Time Seen by Provider: 03/11/24 19:19 Mode of Arrival: EMS Source of Information: Patient and EMS Limitations: Physical Limitations Description of Symptoms (Recalled from ER Triage Doc. by RN): 63 F presents via EMS from [facility] r/t sliding out of her wheelchair. Patient was outside smoking when her wheelchair went over a crack and caused her to slide out. She c/o right sided chest wall pain, but denies other pain or injury. Patient VSS, GCS 15, has a chronic herrmann that is draining to gravity on arrival. History of Present Illness HPI narrative: Please note that above description of symptoms, in this electronic medical record under categorization of recalled from ER triage doctor by RN are reflective of an initial nursing assessment, however, is not reflective of my full history and physical exam that was personally taken and clarified. Consequentially, this preceding description of symptoms, which may include the patient's categorized chief complaint in the EMR, do not reflect my personal clinical impression, and the ultimate description of history of present illness and patient stated complaints should be deferred to this section of the note. Unless stated otherwise or congruent with this section of the note, additional signs, symptoms, or incongruence should be interpreted as inaccurate with my clinical impression. Related Data Home Medications Medication Instructions Recorded Confirmed insulin syringe-needle U-100 1 mL #10 ea 03/22/22 03/11/24 29 gauge x 1/2 lactulose 10 gram/15 mL (15 mL) 30 ml PO DAILY PRN Constipation 09/22/23 03/11/24 oral solution loperamide 2 mg capsule 2 mg PO Q6H PRN loose stool 09/22/23 03/11/24 metformin 500 mg tablet 500 mg PO BID 09/22/23 03/11/24 polyethylene glycol 3350 17 gram 17 g PO DAILY PRN Constipation 09/22/23 03/11/24 oral powder packet Saccharomyces boulardii 250 mg 250 mg PO DAILY 09/29/23 03/11/24 capsule (Daily Probiotic (S. boulardii)) arginine (L-arginine) 500 mg tablet 1,000 mg PO BID 09/29/23 03/11/24 ascorbate calcium (vitamin C) 500 500 mg PO BID 09/29/23 03/11/24 mg tablet cyclobenzaprine 10 mg tablet 10 mg PO TID 09/29/23 03/11/24 ipratropium 0.5 mg-albuterol 3 mg 3 ml inhalation Q6H PRN Shortness 09/29/23 03/11/24 (2.5 mg base)/3 mL nebulization Of Breath soln multivitamin 1 tab PO DAILY 09/29/23 03/11/24 ondansetron 4 mg disintegrating 4 mg PO Q8H PRN Nausea And Vomiting 09/29/23 03/11/24 tablet venlafaxine 75 mg capsule,extended 75 mg PO DAILY 09/29/23 03/11/24 release 24 hr sennosides 8.6 mg tablet (Natural 17.2 mg PO DAILY 10/12/23 03/11/24 Senna Laxative) Previous Rx's Medication Instructions Recorded albuterol sulfate 90 mcg/actuation 1 inh inhalation QID PRN shortness 09/22/23 aerosol inhaler of breath or wheezing #8.5 grams pregabalin 100 mg capsule (Lyrica) 100 mg PO TID #90 caps 12/21/23 denosumab 60 mg/mL subcutaneous 60 mg SQ [id number] Osteoporosis #1 01/09/24 syringe (Prolia) mL insulin glargine 100 unit/mL (3 14 unit (0.14 mL) SQ HS #15 mL 02/12/24 mL) subcutaneous pen (Basaglar KwikPen U-100 Insulin) megestrol 400 mg/10 mL (10 mL) 400 mg (10 mL) PO DAILY #1,000 mL 02/27/24 oral suspension hydrocodone 10 mg-acetaminophen 1 tab PO QID Pain #120 tabs 02/28/24 325 mg tablet Allergies Allergy/AdvReac Type Severity Reaction Status Date / Time codeine Allergy Unknown Verified 03/11/24 10:10 Sulfa (Sulfonamide Allergy Unknown Verified 03/11/24 10:10 Antibiotics) [facility] Disclaimer: The information contained in this section may have been updated after the patient was seen, as this information can be updated by other users. Medical History Hyperlipidemia Diabetes recent HgbA1C 5.7 Acute left otitis media Ear drainage COPD mixed type stable History of CVA with residual deficit Femur fracture, left Status post open reduction internal fixation Hemiplegia and hemiparesis following cerebral infarction affecting left non- dominant side stable Epileptic seizures related to external causes, not intractable, without status epilepticus Mood disorder due to known physiological condition, unspecified Closed fracture of shaft of right fibula Closed fracture of shaft of right tibia Closed fracture of lower leg Esophagitis Smoking greater than 30 pack years Lung nodule Screening for lung cancer History of smoking 30 or more pack years History of 2019 novel coronavirus disease (COVID-19) Pulmonary emphysema Dyspnea on exertion Closed fracture of lateral portion of left tibial plateau Pain in left leg Postoperative follow-up TIA (transient ischemic attack) Lung disease Pneumonia due to COVID-19 virus E. coli UTI (urinary tract infection) COVID Injury of knee, right History of CVA (cerebrovascular accident) Pre-operative cardiovascular examination Fracture, metacarpal Closed right hip fracture Pyelonephritis Surgical History History of surgery on lower extremity History of section S/P ORIF (open reduction internal fixation) fracture Family History Other Emphysema of lung Femur fracture, left Lung cancer Social History Smoking Status: Current every day smoker tobacco type: cigarettes packs per day: 1 alcohol intake: never substance use type: denies use current occupational status: disabled Travel in the last 8 weeks: None housing: assisted living facility caffeine: Yes ROS Obtained: Yes All systems reviewed & no additional complaints except as documented Physical Exam General General appearance: alert and in no apparent distress Head Head exam: atraumatic and normocephalic Eye Eye exam: Present normal appearance, PERRL and EOMI ENT ENT exam: Present mucous membranes moist Neck Neck exam: Present normal inspection, full ROM and trachea midline Respiratory Respiratory exam: Present normal lung sounds bilaterally; Absent respiratory distress, wheezes, stridor, accessory muscle use or prolonged expiratory phase Cardiovascular Cardiovascular exam: Present normal rhythm and tachycardia Abdominal Exam Abdominal exam: Present soft; Absent distention, tenderness, guarding, rebound or rigidity Extremities Exam Extremities exam: Absent edema Neurological Exam Neurological exam: Present alert, oriented X3 and CN II-XII intact; Absent normal gait (Baseline contractures preventing ambulation) or motor sensory deficit (At neurologic baseline) Skin Skin exam: Present warm and dry; Absent diaphoresis or erythema Medical Decision Making Medical Records Medical records reviewed: Yes I reviewed the patient's medical records. Marquise Inquiry Pt receiving controlled substance: No Marquise was queried for this patient: No Vital Signs: 03/11/24 19:15 Temperature 98.5 F Temperature Source Oral Pulse Rate [Left] 95 H Respiratory Rate 20 Blood Pressure [Right Arm] 124/60 Blood Pressure Mean [Right Arm] 81 Blood Pressure Source [Right Arm] Automatic Cuff Blood Pressure Position [Right Arm] Supine 02 Sat by Pulse Oximetry 92 L Oxygen Delivery Method Room Air Orders (Tests/Meds): ORDERS Category Date Time Status CT chest wo con Stat Cat Scan 03/11/24 19:19 Completed Medical Decision Narrative: 63-year-old female no relevant medical history presenting with minor trauma while being pushed in wheelchair. Patient states that she was in the wheelchair at her nursing facility, they hit a bump and she was thrown against the arm of her wheelchair with her left ribs. Had immediate pain. States that she has broken ribs in the past, this does not feel the same, as it is not as intense and does not radiate. Denies shortness of breath, cough, nausea or vomiting. Made better by not applying pressure, made worse with application of pressure. Absent at rest. Patient states she would not of come if nursing facility did no t insist and call ambulance. History was obtained via conversation with patient. On arrival, patient hemodynamically stable, alert, oriented x4, appropriate, GCS 15, moving all extremities spontaneously, pupils equal and reactive to light. Full physical exam performed and significant for chronically ill-appearing woman who is in no acute distress. Chronic contractures, but at neurologic baseline. She has minimal tenderness along left lateral chest wall without outward signs of injury or bruising. Bilateral breath sounds, mildly tachycardic, but saturating 100% on room air. Differential includes minor MSK injury, rib fracture, pneumothorax, pulmonary contusion, among others. She was offered Tylenol and Motrin, but turned them down because pain is 0 at rest. Independent rotation of CT scan demonstrates rib fractures 5 through 8 on the left without displacement underlying pulmonary contusion or pneumothorax. Patient still denying any pain, but oxygen 90% on room air, which is new for her. 2 L nasal cannula oxygen was placed and she is 95 to 100% on room air thereafter. Because patient with multiple rib fractures in the setting of minor trauma, [facility] contacted and case was discussed at length given lack of trauma care here at [facility]. Graciously excepted in transfer by Dr. Cowan. Overlock Collar Setter disclaimer Much of this encounter note is an electronic citizenship teacher spoken language to printed text. Electronic citizenship teacher of the spoken language may permit errors. Although I have reviewed the note, some errors may still exist. Critical Care Critical Care Time Critical Care Time: Yes (resp, msk) Attestation: On 03/11/24, the high probability of a clinically significant, sudden or life threatening deterioration of the following system(s) required my full and direct attention, intervention and personal management. The time I documented below is in addition to time spent performing reported procedures but includes the following listed in this critical care notation. Total Time Total Critical Care Time: 40
--- NOTE | 2024-03-11 20:59 | PC.NURSE ---
call placed to ana lilia rice speaking with at this time. images powershared via Fiiiling
--- NOTE | 2024-03-11 21:10 | PC.NURSE ---
Report called to [place] at [facility]
[2024-03-11 21:15] VITALS: BP 119/65; PULSE 97; RESP 20; TEMP 36.9; O2SAT 96
== END 2024-03-11 21:47 | disposition short-term general hospital (02) ==
PROVIDERS: Emergency Provider Emergency Medicine; PCP Internal Medicine
DX: S22.42XA Multiple fractures of ribs, left side, initial encounter for closed fracture (principal); R07.9 Chest pain, unspecified; R09.02 Hypoxemia; F17.210 Nicotine dependence, cigarettes, uncomplicated; J44.9 Chronic obstructive pulmonary disease, unspecified; W05.0XXA Fall from non-moving wheelchair, initial encounter
CPT/HCPCS: 71250; 99285

== ENCOUNTER 2024-04-07 11:05 | Outpatient (CLI) | payer MEDICARE, MEDICAID, SELFPAY ==
[2024-04-07 11:20] LABS: Microscopic, Urine URINE MICROSCOPIC (MICROSCOPIC)
[2024-04-07 11:23] LABS: Appearance,Urine TURBID (Clear); Bilirubin,Urine Negative (Negative); Blood, Urine TRACE-I (Negative); Color,Urine YELLOW (Yellow); Glucose,Urine (UA) Negative (Negative); Ketones,Urine Negative (Negative); Leukocyte Esterase,Urine 2+ (Negative); Nitrate,Urine POSITIVE (Negative); PH,Urine 8.5 (5.0-8.5); Protein,Urine 3+ (Negative); Specific Gravity, Urine 1.015 (1.005-1.030)
[2024-04-07 11:30] LABS: Bacteria,Urine 2+ /lpf; RBC,Urine Occasional #/hpf (0-3); Squamous Epithelial Cell,Urine Occasional #/hpf (0-5); WBC,Urine Occasional #/hpf (0-3)
== END 2024-04-07 23:59 | disposition home or self-care (01) ==
LOC: LAB.DROPOF 11:06
PROVIDERS: PCP Internal Medicine; Visit Provider Family Medicine
DX: B96.20 Unspecified Escherichia coli [E. coli] as the cause of diseases classified elsewhere (principal)
CPT/HCPCS: 81001; 87086; 87088; 87186